=== PATIENT | male | born 1940 | race Caucasian/White ===

== ENCOUNTER 2018-03-30 09:30 | Outpatient (RCR) | payer MEDICARE, SELFPAY ==
--- NOTE | 2018-03-02 11:34 | IE_ITS ---
Date: 03/02/18 Referring: Dr. Polo Gallardo Diagnosis: chronic right shoulder pain P.T. Diagnosis: right rotator cuff tendinopathy SUBJECTIVE: History of Present Illness: Terence presents with c/o right shoulder pain which began in September 2017. He states that he slipped in his garage, and felt immediate lateral right shoulder pain as he rapidly elevated his arm to try to steady himself. He was initially in a great deal of pain, stating that he was unable to lift the arm at all. He required assistance from his left arm to put his ingram in the ignition and his hand on the steering wheel. His symptoms seemed to mildly improve, although he continued to have pain in the posterior and lateral shoulder, particularly when trying to reach up or out. He had a second quite severe episode of pain after suffering a second near-fall while working on his roof. He felt a sharp pain in the shoulder, and noticed bruising throughout the biceps the next day. This resolved over the following days, and again, pain seemed to improve. Current complaints are of pain reaching up or out, reaching behind back, or lifting items of virtually any weight. He has difficulty getting the arm comfortable at night, and has to keep his right hand in his pocket during his daily walks. 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 Patient is active and independent, living in a private home with his and their 22 year old son. Patient walks daily, push mows the lawn, etc. Current Level of Function: Pain when donning/doffing shirt, putting belt on. Difficulty reaching overhead. Unable to lift items of any weight, with significant pain reproduction with even lifting a plate. Unable to perform overhead work, such as changing a light bulb. Previous Treatment: none Comorbidities: chronic anti-coagulation due to atrial fibrillation and atrial flutter, s/p cardiac ablation; Griffin's esophagus Falls in the last year: __x__ No ____Yes - How many? ____ - (if over 2, balance SM needs to be completed) Reported hospitalizations in the last year - __x__ No ____ Yes - Dates of admission/reason: Medications: warfarin, prilosec Quality of Life: __x__ Excellent ____ Good ____ Fair ____ Poor Standardized Measures: unable to score due to missing data OBJECTIVE: Posture: Patient has increased thoracic kyphosis and posterior pelvic tilt. He demonstrates rounded shoulder, forward head posturing. Gait: Slightly shuffling gait pattern, with decreased stride length bilat. Palpation: Tenderness throughout the posterior cuff, and at the GT. He has atrophy noted throughout the infraspinatus and supraspinatus. Unable to palpate LHBT. Edema: none ROM: Cervical motion is grossly WNL. Patient demonstrates shoulder flexion to 90 degrees initially, although with discomfort is able to push through to about 150 degrees. Passively he tolerates 165 degrees. Shoulder abduction is limited to 100 degrees; passively tolerates 170, with deviation into scapular plane for comfort. He tolerates full passive IR and ER. Actively his functional IR allows thumb to L5, vs T10 on the right. Joint Accessory Motion: Mild hypomobility noted at the GH joint. Strength: Shoulder flexion is 4/5 right, 5/5 left. Biceps 4/5 right, 5/5 left. Shoulder AB 4-/5 right, 4+/5 left. IR 4+/5 bilat. ER 4/5 right, 4+/5 left. Special Tests: (+) painful arc on the right. (+) Woods-Lorne test. (+) empty can for both pain and weakness. (+) Rex sign on the right. Treatment: Today's session consisted of evaluation, followed by mobilization of the right shoulder. Began with PROM, and gentle scapular jiggles. Patient received grade II inferior and AP GH joint mobs, as well as CFM to the GT. He was instructed in an early HEP for AAROM and postural strengthening, as noted in scanned documents. IE: [id number] Direct treatment time: 60 minutes Total treatment time: 60 minutes ASSESSMENT: Patient is a 77-year-old male, referred for PT services with the diagnosis of chronic right shoulder pain. Patient presents with clinical signs and symptoms consistent with right RC tendinopathy, as demonstrated by the following impairment level findings: 1. Decreased AROM right shoulder 2. Decreased RUE strength 3. Muscle atrophy 4. GH joint hypomobility Impairments are contributing to the following functional limitations: 1. Decreased functional reach 2. Difficulty with ADLs, particularly dressing 3. Unable to perform overhead activities Patient is assessed as: ____ Low 33346 __x__ Moderate 72328 ____ High 41545 complexity, based on the following: History: (list): Chronic right shoulder pain in 77 year old patient with multiple medical comorbidities as well as underlying postural deficits. x See comorbidities and social history. Examination: (list): x See above for functional limitations and impairments. Presentation: Stable . x Evolving Unstable Decision-Making: Low complexity x Moderate complexity High complexity __x__ Patient requires skilled PT intervention to remediate the above functional limitations to return to: __x__ Premorbid level of function __x__ Return to full functional mobility ____ Return to work demands __x__ Improve QOL ____ Other: Prognosis: ____ Excellent __x__ Good ____ Fair ____ Poor G-Codes (fill in modifier after appropriate code): Patient's primary functional limitation is in the category of: __x__ Carrying, moving and handling objects: [id number], based on clinical judgement Projected goal: __x__ Carrying, moving, and handling objects [id number] x KX modifier to be utilized as justified by above documentation for necessity of continued Physical Therapy intervention to attend to functional deficits which have not been fully remediated as they approach their Medicare cap. STG: __4__ weeks. 1. Full AROM right shoulder 2. Reduce frequency of pain by 50% by self report LTG: __8__ weeks. __x__ Return to premorbid level of function. __x__ Return to full, pain-free, functional mobility. __x__ Independent with self-maintenance program. Able to don/doff shirt without pain Able to perform overhead activities, such as changing a light bulb PLAN: Patient to be seen 1 x per week, for 8 weeks, adjusting frequency of visits per patient symptoms and response to treatment. Treatment to include: x Manual therapy - [id number]: Right shoulder ROM and joint mobs to GH and scapulothoracic joint. Patient will received DTM to the posterior cuff, and CFM to the GT and posterior capsule. x Therapeutic exercise - [id number] instruct patient in progressive strengthening of the shoulder, with P/AA./AROM activities, and eventual introduction of resisted strengthening as he tolerates. Thank you for this referral. Please do not hesitate to contact me with any questions or concerns regarding this patient's plan of care. MEDICARE: Dr. Cuellar, please sign and return to PT if you agree to above POC: Dr. Cuellar Date
--- NOTE | 2018-03-16 09:30 | PTTR_ITS ---
DATE: 03/16/18 SUBJECTIVE: Terence states his shoulder is feeling remarkably better. He is now able to reach overhead without pain. States his shoulder really hasn't bothered him with exception of feeling weak for the past week. Manual therapy: ([id number]). Patient demonstrates full AROM bilateral shoulders. He has mild end range pain in IR. He received manual mobilization including cross friction massage to the greater tuberosity and the posterior capsule, grade 3 AP and inferior GH joint mobilizations. He received PROM through all planes with excellent tolerance. Therapeutic procedures ([id number]). Patient was instructed in a progressed HEP including theraband resisted exercises. * x Provided skilled instruction in proper exercise performance: * x Provided skilled manual cues to facilitate proper muscle recruitment and/ or movement pattern: for scap retraction and appropriate scapular positioning during all UE loading activities. Direct treatment time: 30 mins Total treatment time: 30 mins SS/dl
--- NOTE | 2018-03-30 09:14 | PTDS_ITS ---
Date: March 30, 2018 Referring: Dr. Cuellar Diagnosis: Chronic R shoulder pain PT diagnosis: R RC tendinopathy Treatment dates: 03/02/18-03/30/18 Subjective: History of Present Illness: Terence presents with reports of markedly improved R shoulder comfort. He states that he has been doing his exercises regularly and does have some questions about appropriate completion, particularly about some crunching that he hears during completion. He is now able to reach his arm overhead and complete all of his normal ADLs and activities without significant pain. Pain Ratin/10 currently Prior Level of Function: Current Level of Function: Pt now able to independently don and doff shirt and put on his belt. He is able to reach overhead and is now able to carry items of moderate weight without any discomfort through the biceps. Objective: Posture: Pt continues to demonstrate rounded shoulder forward head posturing with thoracic kyphosis and posterior pelvic tilt. ROM: AROM is full and pain free for bilateral shoulders. He demonstrates 175 degrees of shoulder flexion. Functional IR with thumbs to T10, active ER 50 degrees bilaterally. Treatment: TP [id number]: Today's session consisted of brief re-evaluation, followed by long discussion regarding HEP. Although pt does get some crepitus with movements into extension, he does not have any pain associated with this. We reviewed his HEP, where he does require verbal and tactile cues for appropriate completion of rowing activities and ER. He also requires continuous cues for slowing pace and controlling movements.Added wall push-ups to his program, which he will complete for 10 reps 2x/day. Treatment Time: 30 min Assessment: Pt has been seen for 3 PT sessions to address R shoulder RC tendinopathy. He has demonstrates significant improvements in comfort and functional strength and has tolerated introduction of HEP quite well. He is now asymptomatic. I have strongly encouraged him to continue with his HEP on a long -term basis and pt is in agreement with this plan. G-Codes: Pt demonstrates discharge status of [id number] based on clinical judgement and progress towards established goals. Projected goal status had been [id number]. ST. Full AROM R shoulder (met). 2. Reduce frequency of pain by 50% by self report (met). LT. Return to premorbid level of function (met). 2. Return to full pain free functional mobility (met). 3. Independent in self maintenance program (met). 4. Able to don and doff shirt without pain (met). 5. Able to perform overhead activities, such as changing a lightbulb (met). Plan:D/C to [facility] for continued strengthening. SS/fw MEDICAREDr. Cuellar, please sign below and return to PT if you agree with above POC. Carlos Cuellar MD Date
== END 2018-04-01 23:59 | disposition home or self-care (01) ==
LOC: PT 09:30
PROVIDERS: PCP Emergency Medicine; Referring Provider Emergency Medicine; Visit Provider Emergency Medicine
DX: M65.811 Other synovitis and tenosynovitis, right shoulder (principal)
CPT/HCPCS: 97110; 97140; 97162

== ENCOUNTER → 2018-04-01 03:19 | Outpatient (CLI) | payer MEDICARE, SELFPAY ==
[2018-04-01 18:00] LABS: INR 3.1 (1.0-3.5); Prothrombin Time 29.4 sec (9.3-10.8)
== END ==
PROVIDERS: PCP Emergency Medicine; Visit Provider Emergency Medicine
DX: I48.91 Unspecified atrial fibrillation (principal); Z79.01 Long term (current) use of anticoagulants
CPT/HCPCS: 36415; 85610

== ENCOUNTER 2018-05-09 00:57 | Outpatient (CLI) | payer MEDICARE, SELFPAY ==
[2018-05-09 12:04] LABS: INR 3.3 (1.0-3.5); Prothrombin Time 31.2 sec (9.3-10.8)
== END 2018-05-09 01:17 ==
PROVIDERS: PCP Emergency Medicine; Visit Provider Emergency Medicine
DX: I48.91 Unspecified atrial fibrillation (principal); Z79.01 Long term (current) use of anticoagulants
CPT/HCPCS: 36415; 85610

== ENCOUNTER → 2018-05-18 10:22 | Outpatient (BNVA) | payer MEDICARE, SELFPAY | PROVIDERS: PCP Emergency Medicine; Visit Provider Nurse Practitioner Gerontology | DX: N40.0 Benign prostatic hyperplasia without lower urinary tract symptoms (principal); R31.9 Hematuria, unspecified | CPT/HCPCS: 81003; 99213 ==

== ENCOUNTER 2018-05-20 03:14 | Outpatient (CLI) | payer MEDICARE, SELFPAY ==
[2018-05-20 15:52] LABS: INR 2.1 (1.0-3.5)
== END 2018-05-20 03:34 ==
PROVIDERS: PCP Emergency Medicine; Visit Provider Emergency Medicine
DX: I48.91 Unspecified atrial fibrillation (principal); Z79.01 Long term (current) use of anticoagulants
CPT/HCPCS: 36415; 85610

== ENCOUNTER 2018-06-07 02:35 | Outpatient (CLI) | payer MEDICARE, SELFPAY ==
[2018-06-07 11:38] LABS: INR 2.5 (1.0-3.5); Prothrombin Time 23.2 sec (9.3-10.8)
== END 2018-06-07 02:55 ==
PROVIDERS: PCP Emergency Medicine; Visit Provider Emergency Medicine
DX: I48.91 Unspecified atrial fibrillation (principal); Z79.01 Long term (current) use of anticoagulants
CPT/HCPCS: 36415; 85610

== ENCOUNTER 2018-06-27 02:01 | Outpatient (CLI) | payer MEDICARE, SELFPAY ==
[2018-06-27 14:28] LABS: INR 2.3 (1.0-3.5); Prothrombin Time 22.1 sec (9.3-10.8)
== END 2018-06-27 02:21 ==
PROVIDERS: PCP Emergency Medicine; Visit Provider Emergency Medicine
DX: I48.91 Unspecified atrial fibrillation (principal); Z79.01 Long term (current) use of anticoagulants
CPT/HCPCS: 36415; 85610

== ENCOUNTER 2018-07-21 15:49 | Outpatient (REF) | payer MEDICARE, SELFPAY ==
[2018-07-21 16:37] LABS: C & S Indicated? C&S Done As Ordered
[2018-07-21 16:59] LABS: Bacteria Negative HPF (Negative); Crystals Negative HPF (Negative); Epithelial Cells Negative HPF (Negative); Mucus Negative (Negative); RBC 20-50 (0-2)
== END 2018-07-21 16:09 ==
LOC: LBN 15:49
PROVIDERS: PCP Emergency Medicine; Visit Provider Nurse Practitioner Gerontology
DX: R31.9 Hematuria, unspecified (principal)
CPT/HCPCS: 81015; 87086

== ENCOUNTER 2018-08-12 00:48 | Outpatient (CLI) | payer MEDICARE, SELFPAY ==
[2018-08-12 13:19] LABS: INR 1.8 (0.9-1.1); Prothrombin Time 17.6 sec (9.3-11.0)
== END 2018-08-12 01:08 ==
PROVIDERS: PCP Emergency Medicine; Visit Provider Emergency Medicine
DX: I48.91 Unspecified atrial fibrillation (principal); Z79.01 Long term (current) use of anticoagulants
CPT/HCPCS: 36415; 85610

== ENCOUNTER 2018-08-25 00:58 | Outpatient (CLI) | payer MEDICARE, SELFPAY ==
[2018-08-25 11:38] LABS: Prothrombin Time 20.1 sec (9.3-11.0)
== END 2018-08-25 01:18 ==
PROVIDERS: PCP Emergency Medicine; Visit Provider Emergency Medicine
DX: I48.91 Unspecified atrial fibrillation (principal); Z79.01 Long term (current) use of anticoagulants
CPT/HCPCS: 36415; 85610

== ENCOUNTER 2018-10-06 02:05 | Outpatient (CLI) | payer MEDICARE, SELFPAY ==
[2018-10-06 12:15] LABS: INR 2.6 (0.9-1.1); Prothrombin Time 25.9 sec (9.3-11.0)
== END 2018-10-06 02:25 ==
PROVIDERS: PCP Emergency Medicine; Visit Provider Emergency Medicine
DX: I48.91 Unspecified atrial fibrillation (principal); Z79.01 Long term (current) use of anticoagulants
CPT/HCPCS: 36415; 85610

== ENCOUNTER 2018-11-04 02:52 | Outpatient (CLI) | payer MEDICARE, SELFPAY ==
[2018-11-04 11:01] LABS: Prothrombin Time 30.3 sec (9.3-11.0)
== END 2018-11-04 03:12 ==
PROVIDERS: PCP Emergency Medicine; Visit Provider Emergency Medicine
DX: I48.91 Unspecified atrial fibrillation (principal); Z79.01 Long term (current) use of anticoagulants
CPT/HCPCS: 36415; 85610

== ENCOUNTER 2019-01-13 02:37 | Outpatient (CLI) | payer MEDICARE, SELFPAY ==
[2019-01-13 11:47] LABS: INR 2.8 (0.9-1.1); Prothrombin Time 28.7 sec (9.3-11.0)
== END 2019-01-13 02:57 ==
PROVIDERS: PCP Emergency Medicine; Visit Provider Emergency Medicine
DX: I48.91 Unspecified atrial fibrillation (principal); Z79.01 Long term (current) use of anticoagulants
CPT/HCPCS: 36415; 85610

== ENCOUNTER → 2019-01-25 09:42 | Outpatient (BNVA) | payer MEDICARE, SELFPAY | PROVIDERS: PCP Emergency Medicine; Visit Provider Student in an Organized Health Care Education/Training Program | DX: I48.92 Unspecified atrial flutter (principal); I48.91 Unspecified atrial fibrillation; Z98.890 Other specified postprocedural states; I10 Essential (primary) hypertension | CPT/HCPCS: 99213 ==

== ENCOUNTER 2019-01-27 13:26 | Emergency (ER) | payer MEDICARE, SELFPAY ==
[2019-01-27] VITALS (7 sets, daily range): BP systolic 125–167; BP diastolic 81–98; PULSE 70–93; RESP 15–20; TEMP 36.7–37.3; O2SAT 95–100
--- NOTE | 2019-01-27 13:41 | DI.CT_ITS ---
SYMPTOMS/DIAGNOSIS: LT FACIAL AND ARM TINGLING, ? ACUTE CVA CRANIAL CT: Noncontrast cranial CT was performed. There is moderate generalized cerebral atrophy and there are periventricular areas of decreased attenuation with probable focal area of encephalomalacia of right parietal cortex suggesting remote infarct. No evidence of acute intracranial hemorrhage, mass effect or midline shift. The orbital and temporal bone structures appear intact. The paranasal sinuses appear well aerated as visualized. CONCLUSION: No evidence of acute intracranial process.
--- NOTE | 2019-01-27 13:41 | DI.RAD_ITS ---
SYMPTOMS/DIAGNOSIS: LT ARM/FACE TINGLING, ASSESS MEDIASTINUM PA AND LATERAL CHEST: The heart is normal in size. The lungs are clear. The mediastinal structures and pleura appear intact. CONCLUSION: Normal chest. There is a normal mediastinal contour.
--- NOTE | 2019-01-27 13:44 | W.ED.GENAD ---
Discharge Plan Disposition Patient Disposition: AGAINST MEDICAL ADVICE Condition: Stable Discharge Details Chief Complaint: CVA/TIA Clinical Impression: Acute cerebrovascular accident Primary Care Provider: Carlos Cuellar ED Provider: Dyana Atkinson Home Meds and New Rx's Prescriptions: Continued glucosamine-chondroitin 500-400 mg tablet 3 tab PO BID RF: 0 tamsulosin [Flomax] 0.4 mg capsule 0.4 mg PO DAILY Qty: 90 RF: 3 multivitamin [Daily Multi-Vitamin] 1 EACH tablet 1 ea PO DAILY RF: 0 ascorbic acid (vitamin C) [Vitamin C] 500 MG tablet 500 mg PO DAILY RF: 0 cholecalciferol (vitamin D3) 2,000 UNIT tablet 2,000 unit PO DAILY RF: 0 omega-3 fatty acids-fish oil [Fish Oil] 1 EACH capsule 1 ea PO DAILY RF: 0 omeprazole 40 mg capsule,delayed release(DR/EC) 40 mg PO BID Qty: 180 RF: 3 warfarin 5 mg tablet 5 mg PO DAILY Qty: 90 RF: 3 Discharge Instructions Instructions: Ischemic Stroke (GEN) Additional Instructions: Take your regular medications as directed. Call your primary care doctor on Wednesday to schedule a follow-up appointment for reevaluation and for referral for carotid ultrasound and echocardiogram. 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 Return immediately to the emergency department if you develop any worsening or new concerning symptoms such as headache, blurry vision, weakness, chest pain or shortness of breath. Discharge Data Discharge Date/Time-TO BE ENTERED AT DEPARTURE: 01/27/19 19:21 Discharge Physician: Dyana Atkinson Medical Decision Making 78-year-old male with a history of atrial fibrillation treated with cardiac ablation in June 2017 who presents with left-sided facial and forearm and hand tingling since 7 AM this morning, approximately 6 hours prior to arrival. Vitals within normal limits. Patient appears nontoxic. Speaking in full sentences. Airway intact. No focal deficits on exam. EKG noted a rate of 93, sinus, left anterior fascicular block, no acute ST-T wave ischemic changes. CT head done on arrival and unremarkable. Labs reviewed and unremarkable. INR 3.2. Able to send for stat MRI brain and to rule out acute CVA although although patient was requesting to leave but is agreeable to stay for this. 1715 --MRI brain notes a tiny acute lacunar infarct in the posterior limb of the right internal capsule. There are also 2 hyperintense foci in the right lateral ventricle which could be hypertensive microbleed's or calcifications. Patient has mainly been normotensive, a few readings of systolic blood pressure in the 150s-160s. He denies any history of hypertension and takes no antihypertensives. Patient was requesting to go home but was willing to stay for discussion with [facility] neurology. 1839 --discussed with [facility] neurology who recommended CTA head and neck to assess for carotid stenosis as a possible cardioembolic cause for his acute stroke. Patient is not willing to stay for any further imaging. The risks of and disability due to a repeat stroke with possible devastating consequences were explained and patient fully understands. He demonstrates capacity to make decisions. AMA form signed. Neurology recommended an outpatient echocardiogram if patient decides to leave. No other medication recommendations. Patient admits to improvement of tingling in left hand. Patient instructed to follow-up with his primary care doctor on Wednesday morning for reevaluation and for referral for outpatient carotid ultrasound and echocardiogram. Medical Records Medical records reviewed: Yes I reviewed the patient's medical records. Imaging Data Radiologic Study: Radiologist's impression: CRANIAL CT: Noncontrast cranial CT was performed. There is moderate generalized cerebral atrophy and there are periventricular areas of decreased attenuation with probable focal area of encephalomalacia of right parietal cortex suggesting remote infarct. No evidence of acute intracranial hemorrhage, mass effect or midline shift. The orbital and temporal bone structures appear intact. The paranasal sinuses appear well aerated as visualized. CONCLUSION: No evidence of acute intracranial process. PA AND LATERAL CHEST: The heart is normal in size. The lungs are clear. The mediastinal structures and pleura appear intact. CONCLUSION: Normal chest. There is a normal mediastinal contour. Lab Data Lab results reviewed: Yes I reviewed the patient's lab results. Laboratory Tests Range/Units 01/27/19 01/27/19 01/27/19 13:06 13:36 13:36 WBC (4.4-10.8) k/cumm 6.69 RBC (4.50-6.00) m/cumm 4.54 Hgb (13.5-17.5) g/dL 14.6 Hct (40.0-50.0) % 42.2 MCV (80-95) fL 93.0 MCH (27.0-33.0) pg 32.2 MCHC (32.0-36.0) g/dL 34.6 RDW (11.8-14.1) % 12.7 Plt Count (130-400) x1000/uL 206 MPV (8.0-11.0) fL 10.5 Immature Gran % 0.4 Neutrophils % 71.4 Lymphocytes % 18.1 Monocytes % 9.4 Eosinophils % 0.3 Basophils % 0.4 Absolute Neutrophils (1.2-6.7) k/cumm 4.77 Absolute Lymphocytes (1.2-3.4) k/cumm 1.21 Absolute Monocytes (0.11-0.7) k/cumm 0.63 Absolute Eosinophils (0.0-0.7) k/cumm 0.02 Absolute Basophils (0.0-0.2) k/cumm 0.03 PT (9.3-11.0) sec 32.0 H INR (0.9-1.1) 3.2 H APTT (21.0-31.4) sec 33.7 H Sodium (136-145) mmol/L 142 Potassium (3.5-5.1) mmol/L 4.0 Chloride (98-107) mmol/L 106 Carbon Dioxide (21.0-32.0) mmol/L 24.3 Anion Gap (3-11) mmol/L 11.7 H BUN (7-18) mg/dL 20 H Creatinine (0.70-1.30) mg/dL 1.10 Estimated GFR/1.73 m2 (mL/min/1.73m2) >= 60.00 Glucose (70-100) mg/dL 95 Calcium (8.5-10.1) mg/dL 9.3 Magnesium (1.8-2.4) mg/dL 1.8 Total Bilirubin (0.2-1.0) mg/dL 0.6 AST (15-37) U/L 22 ALT (12-78) U/L 22 Alkaline Phosphatase (46-116) U/L 83 Troponin I (0.00-0.06) ng/mL < 0.05 Total Protein (6.4-8.2) g/dL 7.7 Albumin (3.4-5.0) g/dL 4.0 ECG Data Attestation: I personally reviewed and interpreted this ECG (s) as follows: Interpretation: Rate of 93, sinus, left anterior fascicular block. No acute ST-T wave ischemic changes. QTc 435. QRS 94. No acute significant change compared to previous. HPI General Mode of arrival: ambulatory. Date/Time Provider Initiated Documentation: 01/27/19 13:29. Limitations to Documentation: no limitations. Information obtained by: patient. HPI Narrative: Patient is a 78-year-old male with history of atrial fibrillation and cardiac ablation in June 2017 on Coumadin who presents with left-sided facial tingling extending from his eyebrow down to his chin and left distal arm tingling extending from his elbow down to his hand that started at 7 AM this morning after awakening. Patient denies any recent illness. Denies fever, chest pain, shortness of breath, headache, dizziness, vision changes, vomiting or diarrhea. Patient states he discussed his symptoms with his primary care doctor Dr. Cuellar and was advised to come to the ER for evaluation and possible MRI brain. Related Data Home Medications Medication Instructions Recorded Confirmed ascorbic acid (vitamin C) [Vitamin 500 mg PO DAILY 05/28/15 01/27/19 C] cholecalciferol (vitamin D3) 2,000 unit PO DAILY 05/28/15 01/27/19 multivitamin [Daily Multi-Vitamin] 1 ea PO DAILY 05/28/15 01/27/19 omega-3 fatty acids-fish oil [Fish 1 ea PO DAILY tab-cap 07/21/17 01/27/19 Oil] tamsulosin 0.4 mg capsule 0.4 mg PO DAILY #90 tab-cap 05/18/18 01/27/19 omeprazole 40 mg capsule,delayed 40 mg PO BID #180 tab-cap 08/31/18 01/27/19 release warfarin 5 mg tablet 5 mg PO DAILY #90 tab-cap 09/27/18 01/27/19 glucosamine-chondroitin 500 mg-400 3 tab PO BID tab 01/25/19 01/27/19 mg tablet Previous Rx's Medication Instructions Recorded tamsulosin 0.4 mg capsule 0.4 mg PO DAILY #90 tab-cap 05/18/18 omeprazole 40 mg capsule,delayed 40 mg PO BID #180 tab-cap 08/31/18 release warfarin 5 mg tablet 5 mg PO DAILY #90 tab-cap 09/27/18 Allergies Allergy/AdvReac Type Severity Reaction Status Date / Time Penicillins Allergy Unknown Verified 01/27/19 17:18 tomato Allergy Unknown Verified 01/27/19 17:18 CHILI PEPPER Allergy Mild Uncoded 01/27/19 17:18 General Stated Complaint: CVA/TIA PHYLICIA: 2 Review of Systems Review of Systems All systems reviewed & are unremarkable except as noted in HPI and below Constitutional Reports as per HPI, Denies chills and Denies fever(s) Eyes Denies blurry vision ENT Denies dizziness, Denies sore throat and Denies throat swelling Cardiovascular Denies chest pain and Denies dyspnea Respiratory Denies cough and Denies dyspnea Gastrointestinal Denies abdominal pain, Denies diarrhea and Denies vomiting Genitourinary Denies hematuria and Denies dysuria Musculoskeletal Denies back pain and Reports numbness Integumentary/Breasts Denies lesions and Denies rash Neurologic Denies dizziness, Denies focal weakness, Reports numbness and Reports paresthesias (left elbow to hand; Left facial) Allergic/Immunologic Denies throat swelling [facility] Medical History Atrial fibrillation (Chronic) Surgical History History of radiofrequency ablation procedure for cardiac arrhythmia (Acute) Griffin's ablation Excision, Skin Mass Social History Smoking/Tobacco Use Status: Never Alcohol Intake: current Alcohol Intake frequency: holidays/special occasions only Drug use: Never Substance use type: does not use Do you feel safe at home: Yes Do you feel safe in your relationship?: Yes Exam Const General: cooperative and healthy appearing Orientation: alert and awake HENMT Head: normal to inspection Ears: hearing grossly normal bilaterally, external ears normal and TM's normal bilaterally General nose exam: external nose normal Face and sinus: normal facial exam Mouth: oral mucosae normal Teeth and gingiva: dentition normal Throat: posterior oropharynx normal Eyes General: appearance normal, both eyes and all related structures Eyelids: eyelids normal Pupils: PERRL EOM: EOM intact bilaterally Neck Neck: normal visual inspection Lymphatic: no lymphadenopathy noted Chest Chest: normal inspection of the chest Resp Effort & Inspection: normal respiratory effort and able to speak in complete sentences Auscultation: clear to auscultation bilaterally Cardio Rate: regular rate Rhythm: regular rhythm GI Inspection: normal to inspection Palpation: soft, not firm, no guarding, no hepatosplenomegaly, no masses and nontender Auscultation: normal bowel sounds Back/Spine/Pelvis Back: no CVA tenderness Skin General skin exam: no rashes or lesions noted Neuro General: alert and awake Cognition: normal cognition Speech: speech normal Gait: normal gait Motor: muscle tone normal throughout Sensory Exam: no sensory deficits noted Extrem General: normal to inspection, full ROM and normal capillary refill Psych Appearance: grossly normal Mental Status: mental status grossly normal Speech and Movement: speech and movement normal Affect: normal affect Thought Process: normal Course Vital Signs Temperature 99.1 F 01/27/19 13:28 Pulse 93 H 01/27/19 13:28 Respiratory Rate 16 01/27/19 13:28 Blood Pressure 125/98 H 01/27/19 13:28 Temperature 99.1 F 01/27/19 13:28 Temperature Source Skin 01/27/19 13:28 Pulse 93 H 01/27/19 13:28 Respiratory Rate 18 01/27/19 13:37 Respiratory Effort 01/27/19 13:37 Respiratory Depth Normal 01/27/19 13:37 Respiratory Pattern Normal 01/27/19 13:37 Blood Pressure 125/98 H 01/27/19 13:28 Blood Pressure Position Sitting 01/27/19 13:28 Oxygen Delivery Method Room Air 01/27/19 13:28 Oxygen Flow Rate 0 01/27/19 13:28
[2019-01-27 15:08] LABS: Abs Immature Grans 0.03 k/cumm (0.0-0.09); Absolute Basophil Count 0.03 k/cumm (0.0-0.2); Absolute Eosinophil Count 0.02 k/cumm (0.0-0.7); Absolute Lymphocyte Count 1.21 k/cumm (1.2-3.4); Absolute Monocyte Count 0.63 k/cumm (0.11-0.7); Absolute Neutrophil Count 4.77 k/cumm (1.2-6.7); Basophils % 0.4; Eosinophils % 0.3; HCT 42.2 % (40.0-50.0); HGB 14.6 g/dL (13.5-17.5); Immature Grans % 0.4; Lymphocytes % 18.1; Mean Corp. HGB Concentration 34.6 g/dL (32.0-36.0); Mean Corpuscular Hemoglobin 32.2 pg (27.0-33.0); Mean Platelet Volume 10.5 fL (8.0-11.0); Monocytes % 9.4; Neutrophils % 71.4; Platelet Count 206 x1000/uL (130-400); RBC 4.54 m/cumm (4.50-6.00); RBC Distribution Width 12.7 % (11.8-14.1); White Blood Cell Count 6.69 k/cumm (4.4-10.8)
--- NOTE | 2019-01-27 15:26 | DI.MRI_ITS ---
SYMPTOM/DIAGNOSIS: LT FACIAL/FOREARM TINGLING, ? ACUTE CA BRAIN MRI: Comparison is made with head CT performed earlier the same day. T 2 sagittal, T 1, T 2, FLAIR, diffusion and gradient echo axial sequences were performed. There is a tiny focus of restricted diffusion in the right thalamus. An old right occipital infarct is seen. There is underlying moderate atrophy as well as small vessel disease of white matter. The ventricles are normal in size. There is a tiny focus of old microhemorrhage adjacent to the posterior horn of the right lateral ventricle. IMPRESSION: 1. Tiny acute lacunar infarct of the right thalamus. 2. Old microbleeds near the posterior horn of the right lateral ventricle. 3. 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
[2019-01-27 15:29] LABS: ALT 22 U/L (12-78); AST 22 U/L (15-37); Alkaline Phosphatase 83 U/L (46-116); Anion Gap 11.7 mmol/L (3-11); BUN 20 mg/dL (7-18); Bilirubin, Total 0.6 mg/dL (0.2-1.0); CO2 24.3 mmol/L (21.0-32.0); Calcium 9.3 mg/dL (8.5-10.1); Chloride 106 mmol/L (98-107); Glucose 95 mg/dL (70-100); Magnesium 1.8 mg/dL (1.8-2.4); Sodium 142 mmol/L (136-145); Total Protein 7.7 g/dL (6.4-8.2)
[2019-01-27 15:46] LABS: Troponin I < 0.05 ng/mL (0.00-0.06)
--- NOTE | 2019-01-27 17:09 | DI.VRAD_ITS ---
Addendum created by Harvinder Strickland MD on 01/27/2019 5:13:09 PM EDT I personally discussed the findings with mikie vergara on 01/27/2019 at 5:13 PM EDT by telephone conference call. Initial report created on 01/27/2019 5:09:26 PM EDT EXAM: MR Head Without Contrast EXAM DATE/TIME: 01/27/2019 4:16 PM CLINICAL HISTORY: 78 years old, male; Weakness, facial TECHNIQUE: Imaging protocol: MR of the head without contrast. COMPARISON: CT HEAD WO 01/27/2019 1:56 PM FINDINGS: Brain: Tiny acute lacunar infarct within the posterior limb of the right internal capsule (axial diffusion, image 68, and ADC map image 14). Moderate global cerebral atrophy. T2 FLAIR signal hyperintensities within the white matter tracts of both cerebral hemispheres are nonspecific, but typically seen with small vessel disease/chronic white matter ischemic changes of aging. Old right parieto-occipital border zone infarct with residual mild encephalomalacia and gliosis. There are 2 hypointense foci on gradient echo scans adjacent to the occipital horn of the right lateral ventricle. Differential diagnosis includes hypertensive microbleeds, multiple cavernous malformations, cerebral amyloid angiopathy, as well as metastases. Ventricles: Mild ventriculomegaly, consistent with global cerebral atrophy. Bones/joints: Unremarkable. Soft tissues: Normal. Sinuses: Mild mucosal thickening of the ethmoid and maxillary sinuses. Small mucous retention cyst versus polyp within the left maxillary sinus. Mastoid air cells: Normal as visualized. No mastoid effusion. Orbits: Unremarkable. Other vasculature: There are normal signal flow voids within the internal carotid and basilar arteries. IMPRESSION: 1. Tiny acute lacunar infarct within the posterior limb of the right internal capsule. 2. Old right parietal occipital border zone infarct. 3. Global cerebral atrophy and small vessel disease. 4. 2 hypointense foci on gradient echo scans adjacent to the occipital horn of the right lateral ventricle. Differential diagnosis includes hypertensive microbleeds, multiple cavernous malformations, cerebral amyloid angiopathy, as well as metastases. Dictated and Authenticated by: Harvinder Strickland MD. Ordering:MICHAEL Turpin MD
[2019-01-27 17:20] LABS: INR 3.2 (0.9-1.1); PTT Activated 33.7 sec (21.0-31.4)
== END 2019-01-27 19:21 | disposition left against medical advice (07) ==
PROVIDERS: Emergency Provider Physician Assistant; PCP Emergency Medicine
DX: I63.9 Cerebral infarction, unspecified (principal); I44.4 Left anterior fascicular block; I10 Essential (primary) hypertension; I48.92 Unspecified atrial flutter; Z79.01 Long term (current) use of anticoagulants; Z53.29 Procedure and treatment not carried out because of patient's decision for other reasons
CPT/HCPCS: 36415; 80053; 93005; 99285; 70450; 70551; 71046; 83735; 84484; 85025; 85610; 85730; 93010

== ENCOUNTER 2019-02-06 14:13 | Outpatient (CLI) | payer MEDICARE, SELFPAY ==
--- NOTE | 2019-02-06 12:00 | DI.US_ITS ---
SYMPTOM/DIAGNOSIS: CVA, I63.9, STROKE, NUMBNESS LT SIDE BILATERAL DUPLEX CAROTID ULTRASOUND: Duplex evaluation of the carotid circulation was performed according to the usual protocol. There is little, if any, visible atheromatous plaque in the carotid circulation. Flow velocities in common internal and external carotid arteries are within normal limits bilaterally. There is bilateral antegrade vertebral flow. IMPRESSION: No evidence of a hemodynamically significant carotid stenosis.
--- NOTE | 2019-02-06 12:35 | MERGE_ITS ---
*[facility]* *[facility]* [address] [place] [address] Date of study: 02/06/2019 Transthoracic Echocardiography M-mode, complete 2D, complete spectral Doppler, and color Doppler *STUDY CONCLUSIONS* Summary: 1. Left ventricle: The cavity size was normal. The estimated ejection fraction was 60%. Diastolic parameters were normal. There was no evidence of elevated ventricular filling pressure by Doppler parameters. 2. Mitral valve: There was mild regurgitation. 3. Right ventricle: The cavity size was mildly dilated. Systolic function was mildly reduced. 4. Right atrium: The atrium was mildly dilated. 5. Atrial septum: No defect or patent foramen ovale was identified. 6. Pulmonary arteries: Pulmonary systolic pressure was >= 20mm Hg. 7. Inferior vena cava: Poorly visualized. *PATIENT PRESENTATION* Height: 180.3cm (71in ) S/D Pressure: 116 / 66 Weight: 77.1kg (169.6lb ) BSA: 1.97m^2 Test start time: 12:40 PM. Test stop time: 01:40 PM. ORDERING Carlos Cuellar REFERRING Carlos Cuellar PERFORMING Unknown *PROCEDURE DATA* Procedure information: The patient was identified by two identifiers. This study was interpreted by [facility]. Pertinent images and digital data are archived for permanent storage and are available for subsequent review. Comparison was made to the study of 2013. Study status: Routine. Transthoracic echocardiography. M-mode, complete 2D, complete spectral Doppler, and color Doppler. A Transthoracic Echocardiogram was performed. Scanning was performed from the parasternal, apical, subcostal, and suprasternal notch acoustic windows. Images were obtained using an [id number] cardiac ultrasound machine. Image quality was good. Study completion: The patient tolerated the procedure well. History: PMH: CVA i63.9 *CARDIAC ANATOMY* Left ventricle: The cavity size was normal. The estimated ejection fraction was 60%. The tissue Doppler parameters were normal. Diastolic parameters were normal. There was no evidence of elevated ventricular filling pressure by Doppler parameters. Aortic valve: Trileaflet. Doppler: There was no stenosis. There was no regurgitation. VTI ratio of LVOT to aortic valve: 0.66. Valve area (VTI): 2.5cm^2. Indexed valve area (VTI): 1.3cm^2/m^2. Peak velocity ratio of LVOT to aortic valve: 0.65. Valve area (Vmax): 2.5cm^2. Indexed valve area (Vmax): 1.3cm^2/m^2. Mean velocity ratio of LVOT to aortic valve: 0.67. Valve area (Vmean): 2.5cm^2. Indexed valve area (Vmean): 1.3cm^2/m^2. Mean gradient (S): 4mm Hg. Peak gradient (S): 6.1mm Hg. Aorta: Aortic root: The aortic root was normal in size. Ascending aorta: The ascending aorta was moderately dilated. Mitral valve: Doppler: There was no evidence for stenosis. There was mild regurgitation. Valve area by pressure half-time: 3.7cm^2. Indexed valve area by pressure half-time: 1.9cm^2/m^2. Peak gradient (D): 2.3mm Hg. Left atrium: The atrium was normal in size. Atrial septum: No defect or patent foramen ovale was identified. Right ventricle: The cavity size was mildly dilated. Systolic function was mildly reduced. Pulmonic valve: Doppler: There was no evidence for stenosis. There was mild regurgitation. Peak gradient (S): 6.3mm Hg. Tricuspid valve: Doppler: There was mild regurgitation. Pulmonary artery: Poorly visualized. Pulmonary systolic pressure was >= 20mm Hg. Right atrium: The atrium was mildly dilated. Pericardium: There was no pericardial effusion. Systemic veins: Inferior vena cava: Poorly visualized. Measurements Left ventricle Value Reference LV ID, ED, PLAX 4.8 cm 3.5 - 6.0 LV ID, ES, PLAX 3.5 cm 2.1 - 4.0 LV PW thickness, ED, PLAX 1.1 cm LV end-diastolic volume, 1-p A2C 100 ml LV ejection fraction, 1-p A2C 71 % LV end-diastolic volume, 1-p A4C 92 ml LV ejection fraction, 1-p A4C 53 % LV e', lateral 0.068 m/sec LV E/e', lateral 11 LV e', medial 0.052 m/sec LV E/e', medial 15 LV e', average 0.06 m/sec LV E/e', average 13 Ventricular septum Value Reference IVS thickness, ED, PLAX 1.2 cm LVOT Value Reference LVOT ID, A-P 2.2 cm LVOT area 3.8 cm^2 LVOT peak velocity, S 0.81 m/sec LVOT mean velocity, S 0.65 m/sec LVOT VTI, S 19.0 cm LVOT peak gradient, S 2.6 mm Hg LVOT mean gradient, S 1.8 mm Hg Stroke volume (SV), LVOT DP 72 ml Stroke index (SV/bsa), LVOT DP 37 ml/m^2 Aortic valve Value Reference Aortic valve peak velocity, S 1.2 m/sec Aortic valve mean velocity, S 1 m/sec Aortic valve VTI, S 29.0 cm Aortic mean gradient, S 4 mm Hg Aortic peak gradient, S 6.1 mm Hg VTI ratio, LVOT/AV 0.66 Aortic valve area, VTI 2.5 cm^2 Velocity ratio, peak, LVOT/AV 0.65 Aortic valve area, peak velocity 2.5 cm^2 Velocity ratio, mean, LVOT/AV 0.67 Aortic valve area, mean velocity 2.5 cm^2 Aortic valve area/bsa, mean velocity 1.3 cm^2/m^2 Aorta Value Reference Aortic root ID, ED 3.8 cm Ascending aorta ID, A-P, S 4.3 cm RVOT Value Reference RVOT VTI, S 16.5 cm Left atrium Value Reference LA ID, A-P, ES 3.3 cm LA ID/bsa, A-P 1.7 cm/m^2 <=2.2 LA volume, ES, 2-p 56 ml LA volume/bsa, ES, 2-p 28 ml/m^2 LA/aortic root ratio 0.88 Mitral valve Value Reference Mitral E-wave peak velocity 0.76 m/sec Mitral A-wave peak velocity 0.5 m/sec Mitral deceleration time 207 ms 150 - 230 Mitral pressure half-time 60 ms Mitral peak gradient, D 2.3 mm Hg Mitral E/A ratio, peak 1.51 Mitral valve area, PHT, DP 3.7 cm^2 Pulmonary veins Value Reference Pulmonary vein peak velocity, S 0.6 m/sec Pulmonary vein peak velocity, D 0.55 m/sec Pulmonary vein velocity ratio, peak, 1.09 S/D Pulmonary vein A-wave reversal peak 1.06 m/sec velocity Pulmonary vein A-wave reversal 146 ms duration Tricuspid valve Value Reference Tricuspid regurg peak velocity 2.5 m/sec Tricuspid peak RV-RA gradient 24.4 mm Hg Right atrium Value Reference RA area, ES, A4C (H) 20.1 cm^2 8.3 - 19.5 Pulmonic valve Value Reference Pulmonic peak gradient, S 6.3 mm Hg Pulmonic regurg velocity, ED 1.25 m/sec Pulmonic regurg gradient, ED 6 mm Hg Legend: (L) and (H) marisela values outside specified reference range. I have personally reviewed the images and have reviewed and edited the reported findings. Electronically signed by German Jones MD 02/06/2019 17:37
== END 2019-02-06 14:33 ==
PROVIDERS: PCP Emergency Medicine; Visit Provider Emergency Medicine
DX: I63.9 Cerebral infarction, unspecified (principal); R20.0 Anesthesia of skin; I48.0 Paroxysmal atrial fibrillation; I34.0 Nonrheumatic mitral (valve) insufficiency; I44.4 Left anterior fascicular block; I10 Essential (primary) hypertension
CPT/HCPCS: 93306; 93880

== ENCOUNTER 2019-02-17 02:45 | Outpatient (CLI) | payer MEDICARE, SELFPAY ==
[2019-02-17 11:16] LABS: Prothrombin Time 28.8 sec (9.3-11.0)
[2019-02-17 11:32] LABS: INR 2.8 (0.9-1.1)
[2019-02-20 10:10] LABS: PSA, Screening 4.6 ng/ml (0-6.5)
== END 2019-02-17 03:05 ==
PROVIDERS: Nurse Practitioner Gerontology; PCP Emergency Medicine; Visit Provider Emergency Medicine
DX: I48.91 Unspecified atrial fibrillation (principal); Z79.01 Long term (current) use of anticoagulants; Z12.5 Encounter for screening for malignant neoplasm of prostate
CPT/HCPCS: 36415; 84153; 85610

== ENCOUNTER 2019-03-30 00:57 | Outpatient (CLI) | payer MEDICARE, SELFPAY ==
[2019-03-30 11:07] LABS: INR 3.2 (0.9-1.1); Prothrombin Time 32.2 sec (9.3-11.0)
[2019-03-30 11:39] LABS: Calculated LDL 60 mg/dL; Cholesterol 143 mg/dL (50-200); HDL Cholesterol 72 mg/dL (40-60); Triglyceride 57 mg/dL (30-150)
== END 2019-03-30 01:17 ==
PROVIDERS: PCP Emergency Medicine; Visit Provider Emergency Medicine
DX: I63.9 Cerebral infarction, unspecified (principal); I48.91 Unspecified atrial fibrillation; Z79.01 Long term (current) use of anticoagulants
CPT/HCPCS: 36415; 80061; 85610

== ENCOUNTER 2019-04-14 01:44 | Outpatient (CLI) | payer MEDICARE, SELFPAY ==
[2019-04-14 10:28] LABS: INR 3.6 (0.9-1.1); Prothrombin Time 36.8 sec (9.3-11.0)
== END 2019-04-14 02:04 ==
PROVIDERS: PCP Emergency Medicine; Visit Provider Emergency Medicine
DX: I48.91 Unspecified atrial fibrillation (principal)
CPT/HCPCS: 36415; 85610

== ENCOUNTER 2019-04-21 02:01 | Outpatient (CLI) | payer MEDICARE, SELFPAY ==
[2019-04-21 10:21] LABS: INR 2.8 (0.9-1.1); Prothrombin Time 27.5 sec (9.3-11.0)
== END 2019-04-21 02:21 ==
PROVIDERS: PCP Emergency Medicine; Visit Provider Emergency Medicine
DX: I48.91 Unspecified atrial fibrillation (principal); Z79.01 Long term (current) use of anticoagulants
CPT/HCPCS: 36415; 85610

== ENCOUNTER 2019-05-05 02:08 | Outpatient (CLI) | payer MEDICARE, SELFPAY ==
[2019-05-05 11:02] LABS: Prothrombin Time 27.9 sec (9.3-11.0)
[2019-05-05 11:04] LABS: INR 2.8 (0.9-1.1)
== END 2019-05-05 02:28 ==
PROVIDERS: PCP Emergency Medicine; Visit Provider Emergency Medicine
DX: I48.91 Unspecified atrial fibrillation (principal); Z79.01 Long term (current) use of anticoagulants
CPT/HCPCS: 36415; 85610

== ENCOUNTER 2019-06-02 00:54 | Outpatient (CLI) | payer MEDICARE, SELFPAY ==
[2019-06-02 10:56] LABS: INR 2.6 (0.9-1.1); Prothrombin Time 25.7 sec (9.3-11.0)
== END 2019-06-02 01:14 ==
PROVIDERS: PCP Emergency Medicine; Visit Provider Emergency Medicine
DX: I48.91 Unspecified atrial fibrillation (principal); Z79.01 Long term (current) use of anticoagulants
CPT/HCPCS: 36415; 85610

== ENCOUNTER → 2019-06-12 13:31 | Outpatient (BNVA) | payer MEDICARE, SELFPAY | PROVIDERS: PCP Emergency Medicine; Referring Provider Emergency Medicine; Visit Provider Nurse Practitioner Gerontology | DX: N40.0 Benign prostatic hyperplasia without lower urinary tract symptoms (principal); R31.29 Other microscopic hematuria; R36.1 Hematospermia; Z79.01 Long term (current) use of anticoagulants | CPT/HCPCS: 81003; 99213 ==

== ENCOUNTER 2019-06-12 17:35 | Outpatient (REF) | payer MEDICARE, SELFPAY ==
[2019-06-12 15:18] LABS: Bilirubin Negative (Negative); Blood Trace-intact (Negative); Clarity Clear (Clear); Glucose Negative (Negative); Ketones Negative (Negative); Leukocyte Esterase Trace (Negative); Nitrite Negative (Negative); Urobilinogen 0.2 EU/dL (Up TO 0.2); pH 5.5 (5-8)
[2019-06-12 15:31] LABS: Bacteria Few HPF (Negative); C & S Indicated? Yes; Casts Negative LPF (Negative); Crystals Negative HPF (Negative); Epithelial Cells Rare HPF (Negative); Mucus Moderate (Negative)
== END 2019-06-12 17:55 ==
LOC: LBN 17:35
PROVIDERS: PCP Emergency Medicine; Visit Provider Nurse Practitioner Gerontology
DX: R31.29 Other microscopic hematuria (principal)
CPT/HCPCS: 81003; 81015; 87086

== ENCOUNTER 2019-06-20 01:11 | Outpatient (CLI) | payer MEDICARE, SELFPAY ==
[2019-06-20 09:27] LABS: CREATININE 1.05 mg/dL (0.70-1.30)
[2019-06-20] MEDS: Omnipaque 350 MG/ML 100 ML BTL IJ (09:53)
--- NOTE | 2019-06-20 10:04 | DI.CT_ITS ---
EXAM: CT ABDOMEN PELVIS WO/W CT urogram CLINICAL HISTORY: gross hematuria R31.9 TECHNIQUE: No oral contrast was administered. Images were performed before and after IV contrast fo llowing 60 second and 7 minutes delayed. COMPARISON: No exams were available for comparison FINDINGS: The noncontrast images show no evidence of renal, ureteral or bladder calculi. There are 2 tiny cys ts in the left kidney. There is an area of scarring posteriorly in the left kidney. Simple appearin g cysts are also noted in the right kidney, the largest measuring 3 cm. There is an area of scarring near the lower pole of the right kidney as well as in the mid right kidney. There are no suspicious renal masses. There is symmetric renal perfusion. The pyelograms are also symmetric. No collectin g system filling defects are seen. The prostate is markedly enlarged, measuring 6.6 x 5.7 by roughly 7.2 cm. There is impression upon the base of the bladder. There is mild diffuse bladder wall thick ening and trabeculation. No bladder mass or bladder calculi are seen. There are bilateral fatty con taining inguinal hernias. The lung bases show mild scarring. The liver, gallbladder, spleen, adrenals and pancreas are unremar kable. The aorta and iliac arteries show calcification but are normal in diameter. There is an appar ent mass in the sigmoid colon measuring roughly 5 x 2 by 3 cm. There is no evidence of obstruction. There is a moderate to increased quantity of stool. The colon is somewhat redundant. The appendix a ppears normal. The small bowel is unremarkable. No enlarged lymph nodes are seen. There are scatte red small retroperitoneal and mesenteric lymph nodes. Degenerative disc changes and facet degenerati ve changes are noted in the lumbar spine. No lytic or blastic bony lesions are seen. IMPRESSION: 1. Bilateral renal cysts. No evidence of renal or bladder mass or calcifications. A markedly enlarg ed prostate and diffuse bladder wall thickening is present. 2. 5 centimeter mass in the sigmoid colon without evidence of obstruction. Colonoscopy is recommen ded for further evaluation.
== END 2019-06-20 01:31 ==
PROVIDERS: PCP Emergency Medicine; Visit Provider Nurse Practitioner Gerontology
DX: R31.9 Hematuria, unspecified (principal); N28.1 Cyst of kidney, acquired; N40.0 Benign prostatic hyperplasia without lower urinary tract symptoms; K63.89 Other specified diseases of intestine
CPT/HCPCS: 74178; 82565; J3490

== ENCOUNTER → 2019-06-26 14:50 | Outpatient (BNVA) | payer MEDICARE, SELFPAY | PROVIDERS: PCP Emergency Medicine; Referring Provider Emergency Medicine; Visit Provider Nurse Practitioner Gerontology | DX: R31.0 Gross hematuria (principal); K63.89 Other specified diseases of intestine | CPT/HCPCS: 99213 ==

== ENCOUNTER 2019-06-30 01:26 | Outpatient (CLI) | payer MEDICARE, SELFPAY ==
[2019-06-30 10:51] LABS: INR 2.1 (0.9-1.1); Prothrombin Time 20.9 sec (9.3-11.0)
== END 2019-06-30 01:46 ==
PROVIDERS: PCP Emergency Medicine; Visit Provider Emergency Medicine
DX: I48.91 Unspecified atrial fibrillation (principal); Z79.01 Long term (current) use of anticoagulants
CPT/HCPCS: 36415; 85610

== ENCOUNTER → 2019-07-05 14:26 | Outpatient (BNVA) | payer MEDICARE, SELFPAY | PROVIDERS: PCP Emergency Medicine; Referring Provider Emergency Medicine; Visit Provider Surgery | DX: R93.3 Abnormal findings on diagnostic imaging of other parts of digestive tract (principal); I48.92 Unspecified atrial flutter; I63.9 Cerebral infarction, unspecified; I10 Essential (primary) hypertension; R63.4 Abnormal weight loss; R19.5 Other fecal abnormalities; Z86.010 Personal history of colon polyps | CPT/HCPCS: 99203; 99214 ==

== ENCOUNTER 2019-07-07 02:10 | Outpatient (CLI) | payer MEDICARE, SELFPAY | END 2019-07-07 02:30 | PROVIDERS: PCP Emergency Medicine; Visit Provider Surgery | DX: I48.91 Unspecified atrial fibrillation (principal); Z79.01 Long term (current) use of anticoagulants; Z01.810 Encounter for preprocedural cardiovascular examination; D36.9 Benign neoplasm, unspecified site; I63.9 Cerebral infarction, unspecified; K63.89 Other specified diseases of intestine; I10 Essential (primary) hypertension; I48.92 Unspecified atrial flutter | CPT/HCPCS: 36415; 80053; 85027; 85610; 93005; 93010 ==

== ENCOUNTER 2019-07-07 10:36 | Outpatient (CLI) | payer MEDICARE, SELFPAY ==
[2019-07-07 11:29] LABS: INR 1.6 (0.9-1.1); Prothrombin Time 15.5 sec (9.3-11.0)
[2019-07-07 11:35] LABS: HGB 14.1 g/dL (13.5-17.5); Mean Corp. HGB Concentration 33.6 g/dL (32.0-36.0); Mean Corpuscular Hemoglobin 32.1 pg (27.0-33.0); Mean Corpuscular Volume 95.7 fL (80-95); Mean Platelet Volume 9.9 fL (8.0-11.0); Platelet Count 210 x1000/uL (130-400); RBC 4.39 m/cumm (4.50-6.00); RBC Distribution Width 12.7 % (11.8-14.1); White Blood Cell Count 5.33 k/cumm (4.4-10.8)
[2019-07-07 12:07] LABS: ALT 24 U/L (16-63); AST 21 U/L (15-37); Alkaline Phosphatase 82 U/L (46-116); Anion Gap 7.8 mmol/L (3-11); BUN 19 mg/dL (7-18); Bilirubin, Total 0.6 mg/dL (0.2-1.0); CO2 29.2 mmol/L (21.0-32.0); CREATININE 0.97 mg/dL (0.70-1.30); Calcium 9.2 mg/dL (8.5-10.1); Chloride 104 mmol/L (98-107); Glucose 129 mg/dL (74-106); Potassium 4.1 mmol/L (3.5-5.1); Sodium 141 mmol/L (136-145); Total Protein 7.5 g/dL (6.4-8.2)
== END 2019-07-07 10:56 ==
PROVIDERS: PCP Emergency Medicine; Visit Provider Surgery
DX: I10 Essential (primary) hypertension (principal); I48.92 Unspecified atrial flutter; Z79.01 Long term (current) use of anticoagulants; I63.9 Cerebral infarction, unspecified
CPT/HCPCS: 36415; 80053; 85027; 85610

== ENCOUNTER 2019-07-10 08:30 | Day surgery (SDC) | payer MEDICARE, SELFPAY ==
[2019-07-10 08:51] VITALS: BP 116/68; PULSE 80; RESP 16; TEMP 36.4; O2SAT 97
[2019-07-10] MEDS: Lactated Ringers 1,000 ML 80 ML IV (09:50)
[2019-07-10 09:55] LABS: INR 1.2 (0.9-1.1); Prothrombin Time 12.1 sec (9.3-11.0)
--- NOTE | 2019-07-10 10:40 | BOWEL_PTH ---
PATIENT: Terence Rosario LOC: [facility] U#:[id number] AGE/SX: 79/M ROOM: RE07/10/[address]: Lucy Murguia : 1940 BED: DIS: 07/10/2019 SPEC #: [id number] RECD: 07/10/19 13:05 STATUS: LORI REQ #: [id number] DAVID: 07/10/19 10:[address]: Lucy Murguia DEPT: Surgical Specimen RECD BY: Micaela Agee ENTERED: 07/10/19 13:06 SP TYPE: Bowel OTHR DR: Carlos Cuellar DO Tissues: 1 - BIOPSY BOWEL Procedures: GROSS AND MICRO LEVEL 4 Comments: [id number]
[2019-07-10] MEDS: Endoscopic Tattoo 5 ML SYR IJ (10:53)
--- NOTE | 2019-07-10 11:09 | W.COLOREPORT ---
Date of service: 07/10/19 Time of Service: 11:09 Colonoscopy Report Date of procedure: 07/10/19 Pre-op diagnosis general: 5cm mass on CT. hx of prior V. adenoma w/ high grade dysplasia. Post-op diagnosis procedure note: other (Most likely colon cancer. The CT shows thickening of the bladder wall. I am highly suspicious that this is tumor eroding into the bladder) Procedure: ce w/ bx Anesthesia proc note operative: GETA Estimated blood loss (mL): 2 Pathology: other Complications: None Disposition: same day Prep: Miralax/Dulcolax Retraction Time: 15 mins Procedure Description: After informed consent was obtained the patient was taken to the procedure room and placed in a left decubitous position. Monitors were applied and a time out was done. The patients name, date of , procedure, allergies to medications and metal in their body was reviewed. The patient was then sedated. Once sedated and comfortable a rectal exam was done. External exam was normal. Internal exam revealed a normal sphincter tone and no palpable masses. The scope was then introduced and retrofelexed. no internal hemorrhoids were identified. The scope was then advanced to the cecum moderate difficulty. The TI and appendiceal orifice were identified. The prep was good. The colon is extremely redundant and floppy. He has very poor tone. The scope was then slowly retracted over 15 minutes back into the rectum. The scope was there are no divert There is a large mass at 15 cm. Multiple biopsies are taken and minimal bleeding is noted. This lesion was tattooed. Most likely this is a cancer. diverticula or AVMs. the scope is removed and the patient was woken up and taken back to Same day surgery in stable condition. The patient tolerated the procedure well and there were no immediate complications. Follow up: The patient needs to have the cystoscopy on to ensure there is no cancer eroding into the bladder. He will follow-up with me on July 19 for biopsy results.
--- NOTE | 2019-07-10 11:14 | W.PM.DSUDISC ---
Discharge Plan Disposition Patient Disposition: HOME Condition: Stable Discharge Details Reason For Visit: Colonoscopy and biopsy Attending Provider: Lucy Murguia Primary Care Provider: Carlos Cuellar Home Meds and New Rx's Prescriptions: Continued rosuvastatin [Crestor] 10 mg tablet 10 mg PO DAILY Qty: 90 RF: 3 glucosamine-chondroitin 500-400 mg tablet 3 tab PO BID RF: 0 multivitamin [Daily Multi-Vitamin] 1 EACH tablet 1 ea PO DAILY RF: 0 cholecalciferol (vitamin D3) 2,000 UNIT tablet 2,000 unit PO DAILY RF: 0 omeprazole 40 mg capsule,delayed release(DR/EC) 40 mg PO BID Qty: 180 RF: 3 tamsulosin [Flomax] 0.4 mg capsule 0.4 mg PO DAILY Qty: 90 RF: 3 Discontinued ascorbic acid (vitamin C) [Vitamin C] 500 MG tablet 500 mg PO DAILY RF: 0 Fish Oil 1 EACH capsule 1 ea PO DAILY RF: 0 warfarin 5 mg tablet 5 mg PO DAILY Qty: 90 RF: 3 Discharge Instructions Additional Instructions: Findings: Large mass in colon. Multiple biopsies were taken today. You can expect to have some bleeding with bowel movements. If you are passing large clots please go to emergency department. Do not resume Coumadin. No aspirin or NSAIDs for 2 weeks. Tylenol is okay. You need to have the cystoscopy with Dr. Horton on . This could be the colon mass eroding through into the bladder. Nothing to eat or drink, after midnight on Wednesday for surgery on . Follow up: Dr. Murguia on July 19 Please call if you develop: fevers >101.5 Nausea or Vomiting Abdominal pain that is not transient DAY SURGERY UNIT POST COLONOSCOPY INSTRUCTIONS 1. Because there will be medication in your system for the next 24 hours, you may feel a little sleepy. Your coordination will be affected. Therefore: a. Do not drive or operate dangerous equipment for 24 hours. b. Do not drink alcohol beverages for 24 hours (not even beer). c. Plan to go home and rest for the day. 2. Generally there are no restrictions on your activity after a day or so has gone by, but you may feel a bit fatigued for a few days. 3 After you arrive home you may have a light meal and return to a normal diet as you can tolerate it without feeling sick to your stomach. 4. After surgery, you may feel pain or discomfort. This should be only transient, but if it persists please contact your doctor. 5. If there are any questions regarding the findings of your procedure, please feel free to contact your doctor. 6. If you are unable to contact your doctor with a problem, contact the hospital at [phone]. 7. Continue all your regular medications unless directed otherwise. I understand the above instructions and have no questions. Signature of Patient or Responsible Adult Escort Date/Time Name of Responsible Adult Escort Signature of Nurse Date/Time Activity:: No strenuous activity or lifting over 20 pounds for 24 hours Diet:: Small light meals x24 hours Discharge Orders Discharge Orders: Discharge Order (Routine); Ordered 07/10/19 Ordered By: Lucy Murguia Discharge Data Discharge Comment: Please keep scheduled appointment on . DS: Diagnosis Discharge Diagnosis (1) Colonic mass: Status: Acute
[2019-07-10 11:44] VITALS: BP 119/69; PULSE 63; RESP 16; TEMP 36.7; O2SAT 96
== END 2019-07-10 12:05 | disposition home or self-care (01) ==
PROVIDERS: PCP Emergency Medicine; Visit Provider Surgery
PROC: 0DJD8ZZ Inspection of Lower Intestinal Tract, Via Natural or Artificial Opening Endoscopic (ICD-10-PCS; CPT 45378; principal; 2019-07-10 09:45)
DX: R93.3 Abnormal findings on diagnostic imaging of other parts of digestive tract (principal); D12.5 Benign neoplasm of sigmoid colon; K63.89 Other specified diseases of intestine; G47.33 Obstructive sleep apnea (adult) (pediatric)
CPT/HCPCS: 45381; 45380; 36415; 88305; 85610

== ENCOUNTER 2019-07-13 11:20 | Day surgery (SDC) | payer MEDICARE, SELFPAY ==
[2019-07-13 11:32] VITALS: BP 135/85; PULSE 66; RESP 16; TEMP 36.7; O2SAT 97
[2019-07-13] MEDS: Lactated Ringers 1,000 ML 80 ML IV (11:54)
[2019-07-13] MEDS: Sulfameth/Trimeth DS TAB 1 TAB PO (11:55)
--- NOTE | 2019-07-13 12:08 | W.PM.HP.N ---
Date of service: 07/13/19 Time of Service: 12:08 Assessment and Plan Assessment and plan (1) Gross hematuria: Status: Acute Assessment and plan: We will move ahead with cystoscopy to complete his hematuria work-up. If any abnormality is identified, we will either biopsy or resect the affected area. History of Present Illness History of Present Illness Chief Complaint: Gross hematuria Narrative: This is an 79-year-old gentleman who has a history of BPH. He developed gross painless hematuria. He was evaluated with a CT urogram. The CT demonstrated a sigmoid mass which has since been biopsied. He presents now for cystoscopy with possible bladder biopsy/transurethral resection of any abnormal mucosa. He has been off of his anticoagulants for about a week now. Review of Systems Constitutional Constitutional: Denies chills and Denies fever(s) Cardiovascular Cardiovascular: Denies chest pain, Denies syncope and Denies irregular heart rhythm Respiratory Respiratory: Denies cough and Denies hemoptysis Gastrointestinal Gastrointestinal: Denies abdominal pain and Denies vomiting Musculoskeletal Musculoskeletal: Reports arthralgias Neurologic Neurologic: Denies syncope and Denies seizure-like activity Comments: Numbness on the left side following stroke Hematologic/Lymphatic Hematologic/Lymphatic: Reports easy bleeding and Reports easy bruising Comments: on Warfarin [facility] Social History Smoking/Tobacco Use Status: Never Alcohol Intake: never Drug use: Never Substance use type: does not use Current gender identity: male Do you feel safe at home: Yes Do you feel safe in your relationship?: Yes Meds Home Medications and Allergies Home Medications Medication Instructions Recorded Confirmed Type cholecalciferol (vitamin D3) 2,000 unit PO DAILY 05/28/15 07/13/19 History multivitamin [Daily Multi-Vitamin] 1 ea PO DAILY 05/28/15 07/13/19 History omeprazole 40 mg capsule,delayed 40 mg PO BID #180 tab-cap 08/31/18 07/13/19 Rx release glucosamine-chondroitin 500 mg-400 3 tab PO BID tab 01/25/19 07/13/19 History mg tablet rosuvastatin 10 mg tablet 10 mg PO DAILY #90 tab 03/15/19 07/13/19 Rx tamsulosin 0.4 mg capsule 0.4 mg PO DAILY #90 tab-cap 05/26/19 07/13/19 Rx warfarin 5 mg tablet 5 mg PO PER PROTOCOL tab 07/10/19 07/13/19 History Allergies Allergy/AdvReac Type Severity Reaction Status Date / Time Penicillins Allergy Severe hives all Verified 07/13/19 11:31 over body tomato Allergy Intermediate red spots Verified 07/13/19 11:31 on trunk aspirin AdvReac Intermediate GI upset Verified 07/13/19 11:31 Exam Narrative Exam Narrative: He is in no current distress. He is cooperative. His vital signs are documented elsewhere His chest wall motion is normal. He does not appear short of breath at rest. Cardiac exam shows a regular rate and rhythm His lungs are clear Abdomen is soft with no masses He is awake and alert Results Last Vital Signs Temp 36.7 C 07/13/19 11:32 Pulse 66 07/13/19 11:32 Resp 16 07/13/19 11:32 BP 135/85 07/13/19 11:32 Pulse Ox 97 07/13/19 11:32
[2019-07-13] MEDS: Lidocaine 2% Jelly 6 ML SYR (12:58)
--- NOTE | 2019-07-13 13:04 | W.PM.DSUDISC ---
Discharge Plan Disposition Patient Disposition: HOME Condition: Stable Discharge Details Attending Provider: Neville Horton Primary Care Provider: Carlos Cuellar Home Meds and New Rx's Prescriptions: New finasteride 5 mg tablet 5 mg PO DAILY Qty: 90 RF: 3 No Action rosuvastatin [Crestor] 10 mg tablet 10 mg PO DAILY Qty: 90 RF: 3 glucosamine-chondroitin 500-400 mg tablet 3 tab PO BID RF: 0 multivitamin [Daily Multi-Vitamin] 1 EACH tablet 1 ea PO DAILY RF: 0 cholecalciferol (vitamin D3) 2,000 UNIT tablet 2,000 unit PO DAILY RF: 0 omeprazole 40 mg capsule,delayed release(DR/EC) 40 mg PO BID Qty: 180 RF: 3 tamsulosin [Flomax] 0.4 mg capsule 0.4 mg PO DAILY Qty: 90 RF: 3 warfarin 5 mg tablet 5 mg PO PER PROTOCOL RF: 0 Discharge Instructions Additional Instructions: may restart warfarin in 3 days pt must void prior to discharge script for Finasteride sent to pharmacy (start tomorrow) Pt will need followup appt in my office (either with me or with Polly Dykes) in 3 months Activity:: Activity as Tolerated Shower/Bathe:: 24 hours Diet:: As Tolerated Discharge Orders Discharge Orders: Discharge Order (Routine); Ordered 07/13/19 Ordered By: Neville Horton DS: Diagnosis Discharge Diagnosis (1) Gross hematuria: Status: Acute
[2019-07-13] MEDS: Finasteride 5 MG TAB PO (13:29)
[2019-07-13] MEDS: Phenazopyridine 200 MG TAB PO (13:29)
[2019-07-13 13:48] VITALS: BP 135/88; PULSE 65; RESP 16; TEMP 36.4; O2SAT 94
--- NOTE | 2019-07-13 14:59 | ROE_ITS ---
JULY 13, 2019 PREOPERATIVE DIAGNOSIS: Gross hematuria. POSTOPERATIVE DIAGNOSIS: Same, due to enlarged vascular prostate. OPERATION: Cystoscopy. ANESTHESIA: MAC with local. COMPLICATIONS: None. FINDINGS: Enlarged vascular prostate with no urothelial abnormalities in the bladder. HISTORY: This is an 79-year-old gentleman who has a history of gross, painless hematuria. He has p assed a few clots in the past few days. He has been evaluated with a CT urogram which demonstrated renal cysts but no evidence of solid renal masses. He presents now for cystoscopy to complete his hematuria work-up. PROCEDURE: The patient was brought to the operating room on 07/13/19. After successful induction o f monitored anesthesia care he was placed in the dorsal lithotomy position. His genitalia was prepp ed and draped. 2% Xylocaine jelly was instilled into the urethra to act as a local anesthetic. A #24 Burmese resectoscope sheath was passed through the urethra into the bladder. We used the visual obturator to inspect the urethra and prostatic mucosae using a 30 degree lens. The pendulous, bulbous and membranous urethras all appeared normal. The prostatic urethra showed dif fuse enlargement with a prominent median lobe. There were multiple inflammatory polyps along the pro static mucosa and very prominent blood vessels. No active bleeding was identified and no clot was adherent to the prostatic mucosa. The bladder neck was then entered. The bladder mucosa was inspected. The orifices were identified. No blood was seen coming from either side. There were numerous trabeculations and diverticula in the bladder but no papillary or nodular lesions were seen. Based on today's examination it appears that the most likely source of bleeding is from the enlarged, vascular prostate with no worrisome lesions in the bladder. The bladder was emptied and the scope was withdrawn. The patient tolerated this procedure well. The re were no complications.
== END 2019-07-13 14:20 | disposition home or self-care (01) ==
PROVIDERS: PCP Emergency Medicine; Visit Provider Urology
PROC: 0TBB8ZZ Excision of Bladder, Via Natural or Artificial Opening Endoscopic (ICD-10-PCS; CPT 52000; principal; 2019-07-13 13:00)
DX: R31.0 Gross hematuria (principal); N40.0 Benign prostatic hyperplasia without lower urinary tract symptoms; N32.89 Other specified disorders of bladder; N32.3 Diverticulum of bladder
CPT/HCPCS: 52000; NC

== ENCOUNTER → 2019-07-19 13:51 | Outpatient (BNVA) | payer MEDICARE, SELFPAY | PROVIDERS: PCP Emergency Medicine; Referring Provider Emergency Medicine; Visit Provider Surgery | DX: K63.89 Other specified diseases of intestine (principal); D36.9 Benign neoplasm, unspecified site; R63.4 Abnormal weight loss; R93.3 Abnormal findings on diagnostic imaging of other parts of digestive tract; R31.0 Gross hematuria; D37.4 Neoplasm of uncertain behavior of colon | CPT/HCPCS: 99214 ==

== ENCOUNTER 2019-07-28 00:26 | Outpatient (CLI) | payer MEDICARE, SELFPAY ==
[2019-07-28 11:13] LABS: INR 2.9 (0.9-1.1); Prothrombin Time 28.4 sec (9.3-11.0)
== END 2019-07-28 00:46 ==
PROVIDERS: PCP Emergency Medicine; Visit Provider Emergency Medicine
DX: I48.91 Unspecified atrial fibrillation (principal); Z79.01 Long term (current) use of anticoagulants
CPT/HCPCS: 36415; 85610

== ENCOUNTER 2019-08-22 01:55 | Outpatient (CLI) | payer MEDICARE, SELFPAY ==
[2019-08-22 11:46] LABS: INR 3.9 (0.9-1.1); Prothrombin Time 37.7 sec (9.3-11.0)
== END 2019-08-22 02:15 ==
PROVIDERS: PCP Emergency Medicine; Visit Provider Emergency Medicine
DX: I48.91 Unspecified atrial fibrillation (principal); Z79.01 Long term (current) use of anticoagulants
CPT/HCPCS: 36415; 85610

== ENCOUNTER → 2019-08-30 13:19 | Outpatient (BNVA) | payer MEDICARE, SELFPAY | PROVIDERS: PCP Emergency Medicine; Referring Provider Emergency Medicine; Visit Provider Surgery | DX: L72.0 Epidermal cyst (principal); L08.9 Local infection of the skin and subcutaneous tissue, unspecified | CPT/HCPCS: 11401; 99213 ==

== ENCOUNTER 2019-08-30 15:02 | Outpatient (REF) | payer MEDICARE, SELFPAY ==
--- NOTE | 2019-08-30 13:45 | SKI_PTH ---
PATIENT: Terence Rosario LOC: [facility] U#:[id number] AGE/SX: 79/M ROOM: RE08/30/[address]: Lucy Murguia : 1940 BED: DIS: 08/30/2019 SPEC #: [id number] RECD: 08/30/19 17:44 STATUS: LORI REQ #: [id number] DAVID: 08/30/19 13:[address]: Lucy Murguia DEPT: Surgical Specimen RECD BY: Micaela Agee ENTERED: 08/30/19 17:45 SP TYPE: KATELYN CHENG DR: Carlos Cuellar DO Tissues: 1 - SKIN CYST/TAG/DEBRIDEMENT Procedures: GROSS AND MICRO LEVEL 3 Comments: [id number]
== END 2019-08-30 15:22 ==
LOC: LBN 15:02
PROVIDERS: PCP Emergency Medicine; Visit Provider Surgery
DX: L72.0 Epidermal cyst (principal)
CPT/HCPCS: 88304

== ENCOUNTER → 2019-09-01 14:20 | Outpatient (BNVA) | payer MEDICARE, SELFPAY | PROVIDERS: PCP Emergency Medicine; Referring Provider Emergency Medicine; Visit Provider Surgery | DX: L72.3 Sebaceous cyst (principal); L08.9 Local infection of the skin and subcutaneous tissue, unspecified; D37.4 Neoplasm of uncertain behavior of colon | CPT/HCPCS: 99212 ==

== ENCOUNTER → 2019-09-04 13:22 | Outpatient (BNVA) | payer MEDICARE, SELFPAY | PROVIDERS: PCP Emergency Medicine; Referring Provider Emergency Medicine; Visit Provider Surgery | DX: Z48.817 Encounter for surgical aftercare following surgery on the skin and subcutaneous tissue (principal); L72.0 Epidermal cyst ==

== ENCOUNTER → 2019-09-13 13:01 | Outpatient (BNVA) | payer MEDICARE, SELFPAY | PROVIDERS: PCP Emergency Medicine; Referring Provider Emergency Medicine; Visit Provider Surgery | DX: L72.3 Sebaceous cyst (principal); L08.9 Local infection of the skin and subcutaneous tissue, unspecified; M79.661 Pain in right lower leg; Z48.817 Encounter for surgical aftercare following surgery on the skin and subcutaneous tissue; D37.4 Neoplasm of uncertain behavior of colon ==

== ENCOUNTER 2019-09-15 08:23 | Outpatient (CLI) | payer MEDICARE, SELFPAY ==
[2019-09-15 12:15] LABS: INR 1.5 (0.9-1.1); Prothrombin Time 14.5 sec (9.3-11.0)
== END 2019-09-15 08:43 ==
PROVIDERS: PCP Emergency Medicine; Visit Provider Emergency Medicine
DX: I48.91 Unspecified atrial fibrillation (principal); Z79.01 Long term (current) use of anticoagulants
CPT/HCPCS: 36415; 85610

== ENCOUNTER → 2019-09-21 07:54 | Outpatient (BNVA) | payer MEDICARE, SELFPAY | PROVIDERS: PCP Emergency Medicine; Referring Provider Emergency Medicine; Visit Provider Nurse Practitioner Gerontology | DX: R33.9 Retention of urine, unspecified (principal) | CPT/HCPCS: 99213 ==

== ENCOUNTER 2019-09-22 00:55 | Outpatient (CLI) | payer MEDICARE, SELFPAY ==
[2019-09-22 12:18] LABS: INR 2.4 (0.9-1.1); Prothrombin Time 23.2 sec (9.3-11.0)
== END 2019-09-22 01:15 ==
PROVIDERS: PCP Emergency Medicine; Visit Provider Emergency Medicine
DX: I48.91 Unspecified atrial fibrillation (principal); Z79.01 Long term (current) use of anticoagulants
CPT/HCPCS: 36415; 85610

== ENCOUNTER → 2019-09-25 07:55 | Outpatient (BNVA) | payer MEDICARE, SELFPAY | PROVIDERS: PCP Emergency Medicine; Referring Provider Emergency Medicine; Visit Provider Nurse Practitioner Gerontology | DX: R33.9 Retention of urine, unspecified (principal) | CPT/HCPCS: 51702; 99213 ==

== ENCOUNTER 2019-09-26 12:05 | Outpatient (CLI) | payer MEDICARE, SELFPAY ==
--- NOTE | 2019-09-26 13:30 | DI.US_ITS ---
EXAM: US LOWER EXTREMITY VENOUS RT US LOWER EXTREMITY VENOUS RT CLINICAL HISTORY: right leg pain/edema occuring post op, ? dvt,m79.661. right leg pain/edema occuring post op, ? dvt,m79.661 TECHNIQUE: Ultrasound performed using standard protocol. COMPARISON: Cardiac from 02/06/2019 FINDINGS: Duplex venous ultrasound was performed according to the usual protocol. The deep veins are freely com pressible throughout and there is normal flow augmentation with manual calf compression. 2D and Doppl er evaluation are unremarkable. IMPRESSION: No evidence of deep venous thrombosis of the lower extremity DATA REPOSITORY:
== END 2019-09-26 12:25 ==
PROVIDERS: PCP Emergency Medicine; Visit Provider Family Medicine
DX: M79.661 Pain in right lower leg (principal); R60.0 Localized edema
CPT/HCPCS: 93971

== ENCOUNTER 2019-10-06 11:17 | Outpatient (CLI) | payer MEDICARE, SELFPAY ==
[2019-10-06 11:46] LABS: INR 2.4 (0.9-1.1)
== END 2019-10-06 11:37 ==
PROVIDERS: PCP Emergency Medicine; Visit Provider Emergency Medicine
DX: I48.91 Unspecified atrial fibrillation (principal); Z79.01 Long term (current) use of anticoagulants
CPT/HCPCS: 36415; 85610

== ENCOUNTER → 2019-10-09 08:03 | Outpatient (BNVA) | payer MEDICARE, SELFPAY | PROVIDERS: PCP Emergency Medicine; Referring Provider Emergency Medicine; Visit Provider Nurse Practitioner Gerontology | DX: R33.8 Other retention of urine (principal) | CPT/HCPCS: 99213 ==

== ENCOUNTER 2019-10-09 22:34 | Emergency (ER) | payer MEDICARE, SELFPAY ==
[2019-10-09 22:39] VITALS: BP 180/83; PULSE 83; RESP 18; TEMP 36.5; O2SAT 97
--- NOTE | 2019-10-09 23:05 | ED.GENADUL_ITS ---
Discharge Plan Disposition Patient Disposition: HOME Condition: Stable Discharge Details Chief Complaint: Urinary Clinical Impression: Acute urinary retention Primary Care Provider: Carlos Cuellar ED Provider: German Brown Home Meds and New Rx's Prescriptions: Continued rosuvastatin [Crestor] 10 mg tablet 10 mg PO DAILY Qty: 90 RF: 3 tamsulosin [Flomax] 0.4 mg capsule 0.8 mg PO DAILY RF: 0 glucosamine-chondroitin 500-400 mg tablet 3 tab PO BID RF: 0 Adult Probiotic 3 billion cell capsule 3,000 mmu cells PO DAILY Qty: 30 RF: 0 multivitamin [Daily Multi-Vitamin] 1 EACH tablet 1 ea PO DAILY RF: 0 cholecalciferol (vitamin D3) 2,000 UNIT tablet 2,000 unit PO DAILY RF: 0 warfarin 5 mg tablet 5 mg PO PER PROTOCOL RF: 0 omeprazole 40 mg capsule,delayed release(DR/EC) 40 mg PO BID Qty: 180 RF: 3 finasteride 5 mg tablet 5 mg PO DAILY Qty: 90 RF: 3 Discharge Instructions Instructions: Howard Catheter Placement and Care (ED), Urinary Leg Bag (GEN) Additional Instructions: call dr. verma's office to arrange for a follow up appointment if you have severe worsening pain or fevers return to the emergency department Discharge Data Discharge Date/Time-TO BE ENTERED AT DEPARTURE: 10/10/19 01:30 Medical Decision Making <Taylor Vargas - Last Filed: 10/12/19 08:12> Patient is an 79-year-old male on coumadin with a history of colon resection who presents with urinary retention. Patient was seen at Dr. Verma's office this morning and had a Howard catheter removed. Patient was unable to urinate after removal of catheter. He was able to self cath in the office at approximately 2 PM this afternoon and was sent home to self cath. Patient has not been successful with self cathing since the episode in the office. Upon arrival he does complain of bladder distention, appears uncomfortable and initial bladder scan shows over 1000 mL of urinary retention. 2311: RN is at bedside attempting Howard catheritazation. She reports that there is gross blood with clots noted and resistance felt at the area of prostate. 2346: Spoke with Dr. Verma who will come to evaluate the patient and attempt cathertization. Labs ordered including PT. 0004: Patient offered morphine for pain which patient declined at this time. Discussed plan of care to have urology come and attempt to put a catheter patient verbalized understanding. Patient is to be signed out to Dr. Brown pending lab results and urology evaluation. <German Brown MD - Last Filed: 10/10/19 01:01> Dr. Verma able to place coude catheter and drained clear urine. No further treatment or workup needed per Dr. Verma and can be discharged home and f/u with him as outpatient Lab Data Lab results reviewed: Yes I reviewed the patient's lab results. HPI <Taylor Vargas - Last Filed: 10/12/19 08:12> General Mode of arrival: ambulatory . Date/Time Provider Initiated Documentation: 10/09/19 22:38 . Limitations to Documentation: no limitations . Information obtained by: patient . HPI Narrative: Patient is an 79-year-old male with a history of: Resection who presents with urinary retention. Patient was seen at Dr. Verma's office this morning and had a Howard catheter removed. Patient was unable to urinate after removal of catheter. He was able to self cath in the office at approximately 2 PM this afternoon and was sent home to self cath. Patient has not been successful with self cathing since the episode in the office. Patient reports attempting to 7 times to catheterize himself prior to arrival. Upon arrival he does complain of bladder distention, appears uncomfortable and initial bladder scan shows over 1000 mL of urinary retention. Related Data Home Medications Medication Instructions Recorded Confirmed cholecalciferol (vitamin D3) 2,000 unit PO DAILY 05/28/15 10/09/19 multivitamin [Daily Multi-Vitamin] 1 ea PO DAILY 05/28/15 10/09/19 glucosamine-chondroitin 500 mg-400 3 tab PO BID tab 01/25/19 10/09/19 mg tablet rosuvastatin 10 mg tablet 10 mg PO DAILY #90 tab 03/15/19 10/09/19 warfarin 5 mg tablet 5 mg PO PER PROTOCOL tab 07/10/19 10/09/19 finasteride 5 mg PO DAILY #90 tab 07/13/19 10/09/19 lactobacillus combination no.8 3 3,000 mmu cells PO DAILY #30 cap 08/30/19 10/09/19 billion cell capsule omeprazole 40 mg capsule,delayed 40 mg PO BID #180 tab-cap 08/30/19 10/09/19 release tamsulosin 0.4 mg capsule 0.8 mg PO DAILY tab-cap 09/26/19 10/09/19 Previous Rx's Medication Instructions Recorded rosuvastatin 10 mg tablet 10 mg PO DAILY #90 tab 03/15/19 finasteride 5 mg PO DAILY #90 tab 07/13/19 lactobacillus combination no.8 3 3,000 mmu cells PO DAILY #30 cap 08/30/19 billion cell capsule omeprazole 40 mg capsule,delayed 40 mg PO BID #180 tab-cap 08/30/19 release Allergies Allergy/AdvReac Type Severity Reaction Status Date / Time Penicillins Allergy Severe hives all Verified 10/09/19 23:01 over body tomato Allergy Intermediate red spots Verified 10/09/19 23:01 on trunk aspirin AdvReac Intermediate GI upset Verified 10/09/19 23:01 adhesive tape AdvReac Mild redness Verified 10/09/19 23:01 General Stated Complaint: Urinary PHYLICIA: 3 Review of Systems <Tyalor Vargas - Last Filed: 10/12/19 08:12> Narrative: Constitutional: Negative for weight loss, alert and oriented, well groomed, normal body habitus, appears uncomfortable. HEENT: Denies trauma, headaches, blurry vision, nasal discharge, sore throat, trouble swallowing. Chest: Denies chest pain, palpitations, irregular rhythm, hypertension. Respiratory: Denies Shortness of breath, cough, hemoptysis. GI: Denies , nausea, vomiting, diarrhea, constipation. : Denies, flank pain, rectal bleeding. Positive for urinary retention. Neuro: Denies dizziness, blurry vision, weakness, syncope, headache or facial numbness. Hematologic: Denies easy bruising, intolerance to heat or cold, hair loss. [facility] <Taylor Vargas - Last Filed: 10/12/19 08:12> Medical History Abnormal CT scan, sigmoid colon (Acute) Atrial fibrillation (Chronic) Change in stool (Acute) Colonic mass (Acute) Infected sebaceous cyst of skin (Acute) Right calf pain (Acute) Sigmoidoscopy performed (Acute ~09/24/16) 02/24/17 Dr. Adan with Polypectomies Stroke (Chronic ~12/2018) Villous adenoma of left colon (Acute) Weight loss (Acute) Surgical History Griffin's ablation [facility] [place]12[place]17/16 Excision, Skin Mass sebaceous cyst History of colonoscopy (Chronic ~07/10/19) History of radiofrequency ablation procedure for cardiac arrhythmia (Acute) Social History Smoking/Tobacco Use Status: Never Alcohol Intake: never Drug use: Never Substance use type: does not use Current gender identity: male Do you feel safe at home: Yes Do you feel safe in your relationship?: Yes Exam <Taylor Vargas - Last Filed: 10/12/19 08:12> Narrative Exam Narrative: Constitutional: Allert and oriented x3. Appears stated age. Normal body habitus. Head: Normocephalic, no trauma. Eyes: Pupils PERRLA, Red reflex noted, EOM's intact. Eyelids symmetrical withour lesions, discharge, or swelling. ENT: Bilateral TM's WNL, External ear normal to inspection, no mastoid TTP, swelling, or erythema, Nasal turbinates WNL, no nasal discharge. Normal dentition, Posterior pharynx WNL, no exudate. Chest: RRR, Normal S1, S2, distal pulses intact. Resp: Lungs clear to auscultation bilaterally, no wheezes, rales, or rhonchi. Musculoskeletal: Normal gait, 5/5 strength to all four extremities. GI: Healed surgical scars noted, there is a horizontal suprapubic incision, and 2 laparoscopic incisions noted. : Distended bladder noted to palpation, urinary retention. Bladder scan shows greater than thousand milliliters of urine in bladder. Skin: No suspicious rashes or lesions. Capillary refill ?2 sec. Neurologic: Cranial nerves II-XII intact. Alert and oriented x 3. DTR's intact. Hematologic/Lymphatic: No ecchymosis, no lymphadenopathy. Course <Taylor Vargas - Last Filed: 10/12/19 08:12> Vital Signs Vital signs: Vital Signs Temperature 36.5 C 10/09/19 22:39 Pulse 83 10/09/19 22:39 Respiratory Rate 18 10/09/19 22:39 Blood Pressure 180/83 H 10/09/19 22:39 Pulse Oximetry 97 10/09/19 22:39 Temperature 36.5 C 10/09/19 22:39 Pulse 83 10/09/19 22:39 Respiratory Rate 18 10/09/19 22:39 Respiratory Effort 10/09/19 22:55 Blood Pressure 180/83 H 10/09/19 22:39 Pulse Oximetry 97 10/09/19 22:39 Oxygen Delivery Method Room Air 10/09/19 22:39 Oxygen Flow Rate 0 10/09/19 22:39 Pain Level 9 10/09/19 22:55 Lab/Test Results Lab/Test Results: 10/09/19 22:51 Urine - Cath Howard Indwelling Urine Culture - Pending Sign Out <Taylor Vargas - Last Filed: 10/12/19 08:12> Sign Out Data: Sign Out Comment: Pending Lab results and Urology evaluation for Howard placement Last updated by Taylor Vargas at 10/10/19 00:01
--- NOTE | 2019-10-09 23:47 | NUR.NOTE ---
Nursing Note: Attempted to catheterize pt twice unable to pass catheter into the bladder secondary to blood clotting the catheter tip. Provider aware and will contact Dr. Horton the pt's urologist.
[2019-10-09 23:56] LABS: Abs Immature Grans 0.02 k/cumm (0.0-0.09); Absolute Basophil Count 0.03 k/cumm (0.0-0.2); Absolute Eosinophil Count 0.15 k/cumm (0.0-0.7); Absolute Lymphocyte Count 1.45 k/cumm (1.2-3.4); Absolute Monocyte Count 0.73 k/cumm (0.11-0.7); Absolute Neutrophil Count 4.65 k/cumm (1.2-6.7); Basophils % 0.4; Eosinophils % 2.1; HCT 35.9 % (40.0-50.0); HGB 12.3 g/dL (13.5-17.5); Immature Grans % 0.3 %; Lymphocytes % 20.6; Mean Corp. HGB Concentration 34.3 g/dL (32.0-36.0); Mean Corpuscular Hemoglobin 31.6 pg (27.0-33.0); Mean Corpuscular Volume 92.3 fL (80-95); Mean Platelet Volume 9.1 fL (8.0-11.0); Monocytes % 10.4; Neutrophils % 66.2; Platelet Count 303 x1000/uL (130-400); RBC 3.89 m/cumm (4.50-6.00); RBC Distribution Width 12.3 % (11.8-14.1); White Blood Cell Count 7.03 k/cumm (4.4-10.8)
[2019-10-10 00:06] LABS: BUN 20 mg/dL (7-18); CREATININE 1.16 mg/dL (0.70-1.30); Calcium 9.1 mg/dL (8.5-10.1); Chloride 102 mmol/L (98-107); Glucose 147 mg/dL (74-106); Potassium 3.8 mmol/L (3.5-5.1); Sodium 138 mmol/L (136-145)
[2019-10-10 00:07] LABS: INR 2.8 (0.9-1.1); Prothrombin Time 27.4 sec (9.3-11.0)
[2019-10-10 01:00] VITALS: BP 168/78; PULSE 73; RESP 16; O2SAT 98
--- NOTE | 2019-10-10 01:02 | W.UROLOGYCON ---
Date of service: 10/10/19 Time of Service: 01:02 Assessment and Plan Assessment and plan (1) Retention of urine: Status: Acute Assessment and plan: He will be sent home with a leg bag for his urine. I will ask the office to contact him to set up a follow-up appointment. History of Present Illness History of Present Illness Chief Complaint: Urinary retention Narrative: Apparently the patient had a voiding trial today here in the office. He was only able to void a small amount but he was taught how to self cath and catheterized himself quite well here in the office. Unfortunately, when he went home and his bladder filled, he was not able to pass his catheter in spite of multiple attempts. He presented to the emergency room and the staff was unable to pass a catheter. I was called into provide bladder drainage. [facility] Medical History Abnormal CT scan, sigmoid colon (Acute) Atrial fibrillation (Chronic) Change in stool (Acute) Colonic mass (Acute) Infected sebaceous cyst of skin (Acute) Right calf pain (Acute) Sigmoidoscopy performed (Acute ~09/24/16) 02/24/17 Dr. Adan with Polypectomies Stroke (Chronic ~12/2018) Villous adenoma of left colon (Acute) Weight loss (Acute) Surgical History Griffin's ablation [facility] [place]12/17/16 Excision, Skin Mass sebaceous cyst History of colonoscopy (Chronic ~07/10/19) History of radiofrequency ablation procedure for cardiac arrhythmia (Acute) Social History Smoking/Tobacco Use Status: Never Alcohol Intake: never Drug use: Never Substance use type: does not use Current gender identity: male Do you feel safe at home: Yes Do you feel safe in your relationship?: Yes Exam Narrative Exam Narrative: He was seen in the emergency department. He appeared uncomfortable. His bladder was distended. His genitalia was then prepped. 2% Xylocaine was instilled into the urethra. A 16 Armenian coud? tipped catheter was passed through the urethra into the bladder. Clear urine was obtained (1400 cc). The catheter balloon was inflated with 10 cc of sterile water and the catheter was hooked to gravity drainage. His discomfort greatly improved after placement of the catheter. Results Last Vital Signs Temp 36.5 C 10/09/19 22:39 Pulse 73 10/10/19 01:00 Resp 16 10/10/19 01:00 BP 168/78 H 10/10/19 01:00 Pulse Ox 98 10/10/19 01:00 Labs Result diagrams: 10/09/19 23:45 10/09/19 23:45 Labs: Laboratory Results - last 24 hr 10/09/19 10/09/19 10/09/19 23:45 23:45 23:45 WBC 7.03 RBC 3.89 L Hgb 12.3 L Hct 35.9 L MCV 92.3 MCH 31.6 MCHC 34.3 RDW 12.3 Plt Count 303 MPV 9.1 Immature Gran % 0.3 Neutrophils % 66.2 Lymphocytes % 20.6 Monocytes % 10.4 Eosinophils % 2.1 Basophils % 0.4 Absolute Neutrophils 4.65 Absolute Lymphocytes 1.45 Absolute Monocytes 0.73 H Absolute Eosinophils 0.15 Absolute Basophils 0.03 PT 27.4 H INR 2.8 H Sodium 138 Potassium 3.8 Chloride 102 Carbon Dioxide 27.0 Anion Gap 9.0 BUN 20 H Creatinine 1.16 Estimated GFR/1.73 m2 >= 60.00 Glucose 147 H Calcium 9.1
[2019-10-10 01:07] LABS: Bilirubin Negative (Negative); Blood Moderate (Negative); Clarity Clear (Clear); Glucose Negative (Negative); Ketones Negative (Negative); Leukocyte Esterase Small (Negative); Nitrite Negative (Negative); Specific Gravity 1.015 (1.005-1.025); Urobilinogen 0.2 EU/dL (Up TO 0.2)
[2019-10-10 01:23] LABS: Bacteria Few HPF (Negative); Epithelial Cells Negative HPF (Negative)
[2019-10-10 01:24] LABS: C & S Indicated? C&S Done As Ordered; Casts Negative LPF (Negative); Crystals Moderate Amorphous HPF (Negative); Mucus Negative (Negative)
[2019-10-10 01:32] VITALS: BP 163/67; PULSE 73; RESP 16; TEMP 36.2
== END 2019-10-10 01:30 | disposition home or self-care (01) ==
PROVIDERS: Registered Nurse Emergency; Emergency Provider Emergency Medicine; PCP Emergency Medicine
DX: R33.8 Other retention of urine (principal); Z79.01 Long term (current) use of anticoagulants; I10 Essential (primary) hypertension
CPT/HCPCS: 36415; 51703; 80048; 87077; 96374; 99213; 99284; 81003; 81015; 85025; 85610; 87086; 87186

== ENCOUNTER → 2019-10-19 11:39 | Outpatient (BNVA) | payer MEDICARE, SELFPAY | PROVIDERS: PCP Emergency Medicine; Referring Provider Emergency Medicine; Visit Provider Urology | DX: R31.0 Gross hematuria (principal); R33.8 Other retention of urine; Z96.0 Presence of urogenital implants | CPT/HCPCS: 81003; 99212 ==

== ENCOUNTER → 2019-11-07 09:11 | Outpatient (BNVA) | payer MEDICARE, SELFPAY | PROVIDERS: PCP Emergency Medicine; Referring Provider Emergency Medicine; Visit Provider Nurse Practitioner Gerontology | DX: R33.8 Other retention of urine (principal); Z46.6 Encounter for fitting and adjustment of urinary device | CPT/HCPCS: 51702; 99213 ==

== ENCOUNTER 2019-11-29 03:50 | Outpatient (CLI) | payer MEDICARE, SELFPAY ==
[2019-11-29 11:55] LABS: INR 3.3 (0.9-1.1); Prothrombin Time 31.8 sec (9.3-11.0)
== END 2019-11-29 04:10 ==
PROVIDERS: PCP Emergency Medicine; Visit Provider Emergency Medicine
DX: I48.91 Unspecified atrial fibrillation (principal); Z79.01 Long term (current) use of anticoagulants
CPT/HCPCS: 36415; 85610

== ENCOUNTER → 2019-12-06 10:56 | Outpatient (BNVA) | payer MEDICARE, SELFPAY | PROVIDERS: PCP Emergency Medicine; Referring Provider Emergency Medicine; Visit Provider Nurse Practitioner Gerontology | DX: R33.8 Other retention of urine (principal); Z46.6 Encounter for fitting and adjustment of urinary device | CPT/HCPCS: 51702; 99213 ==

== ENCOUNTER → 2020-01-03 11:12 | Outpatient (BNVA) | payer MEDICARE, SELFPAY | PROVIDERS: PCP Emergency Medicine; Referring Provider Emergency Medicine; Visit Provider Nurse Practitioner Gerontology | DX: R33.8 Other retention of urine (principal); Z46.6 Encounter for fitting and adjustment of urinary device | CPT/HCPCS: 51702; 99213 ==

== ENCOUNTER 2020-01-17 03:43 | Outpatient (CLI) | payer MEDICARE, SELFPAY | END 2020-01-17 04:03 | PROVIDERS: PCP Emergency Medicine; Visit Provider Emergency Medicine | DX: N48.1 Balanitis (principal) | CPT/HCPCS: 99213 ==

== ENCOUNTER → 2020-01-31 11:02 | Outpatient (BNVA) | payer MEDICARE, SELFPAY | PROVIDERS: PCP Emergency Medicine; Referring Provider Emergency Medicine; Visit Provider Nurse Practitioner Gerontology | DX: R33.8 Other retention of urine (principal); N48.0 Leukoplakia of penis; Z46.6 Encounter for fitting and adjustment of urinary device | CPT/HCPCS: 51702; 99213 ==

== ENCOUNTER → 2020-03-04 14:20 | Outpatient (BNVA) | payer MEDICARE, SELFPAY | PROVIDERS: PCP Emergency Medicine; Referring Provider Emergency Medicine; Visit Provider Nurse Practitioner Gerontology | DX: R33.8 Other retention of urine (principal); Z46.6 Encounter for fitting and adjustment of urinary device | CPT/HCPCS: 51702; 99213 ==

== ENCOUNTER → 2020-04-11 09:59 | Outpatient (BNVA) | payer MEDICARE, SELFPAY | PROVIDERS: PCP Emergency Medicine; Referring Provider Emergency Medicine; Visit Provider Urology | DX: R33.8 Other retention of urine (principal); I63.9 Cerebral infarction, unspecified; R63.4 Abnormal weight loss; I48.92 Unspecified atrial flutter; I10 Essential (primary) hypertension | CPT/HCPCS: 51702; 51728; 51784; 51797; 99212 ==

== ENCOUNTER → 2020-05-02 10:30 | Outpatient (BNVA) | payer MEDICARE, SELFPAY | PROVIDERS: PCP Emergency Medicine; Referring Provider Emergency Medicine; Visit Provider Nurse Practitioner Gerontology | DX: R33.8 Other retention of urine (principal); N43.3 Hydrocele, unspecified; Z46.6 Encounter for fitting and adjustment of urinary device | CPT/HCPCS: 51702; 99213 ==

== ENCOUNTER → 2020-05-10 09:22 | Outpatient (BNVA) | payer MEDICARE, SELFPAY | PROVIDERS: PCP Emergency Medicine; Referring Provider Emergency Medicine; Visit Provider Urology | DX: R33.8 Other retention of urine (principal) | CPT/HCPCS: 99214; 99442 ==

== ENCOUNTER → 2020-05-30 10:01 | Outpatient (BNVA) | payer MEDICARE, SELFPAY | PROVIDERS: PCP Emergency Medicine; Referring Provider Emergency Medicine; Visit Provider Nurse Practitioner Gerontology | DX: R33.8 Other retention of urine (principal); Z46.6 Encounter for fitting and adjustment of urinary device | CPT/HCPCS: 51702; 99213 ==

== ENCOUNTER 2020-07-01 02:30 | Outpatient (CLI) | payer MEDICARE, SELFPAY ==
[2020-07-02 16:50] LABS: COVID-19 RT-PCR UVMMC Result Negative (Negative)
== END 2020-07-01 02:50 ==
PROVIDERS: Urology; PCP Emergency Medicine; Visit Provider Nurse Practitioner Gerontology
DX: Z11.59 Encounter for screening for other viral diseases (principal); Z01.818 Encounter for other preprocedural examination
CPT/HCPCS: U0003

== ENCOUNTER 2020-07-04 09:28 | Inpatient (IN) | payer MEDICARE, SELFPAY ==
[2020-07-04] VITALS (10 sets, daily range): BP systolic 95–132; BP diastolic 58–80; PULSE 55–83; RESP 13–21; TEMP 36–36.6; O2SAT 93–98
--- NOTE | 2020-07-04 08:58 | W.PM.HP.N ---
Assessment and Plan Assessment and plan (1) Retention of urine: Status: Acute Assessment and plan: His urodynamic study indicated that he does have adequate detrusor function that should allow him to void if any bladder outlet obstruction is relieved. He presents now for cystoscopy with transurethral resection of his prostate. We will plan on keeping him hospitalized overnight for continuous bladder irrigation and antibiotics. History of Present Illness History of Present Illness Chief Complaint: Urinary retention Narrative: This is an 80-year-old gentleman who has a history of lower urinary tract symptoms. He developed urinary retention after a colon resection. Since that time, he has failed maximal medical therapy. Initially, we taught the patient intermittent catheterization. He was able to successfully CIC in our office, but eventually was unable to do so at home. Since that time, he has relied on an indwelling urethral catheter that is changed monthly. We did a urodynamic study which showed that he does have detrusor contractions when asked to attempt to void. Because of these results, we would expect him to be able to void without his catheter as long as any bladder outlet obstruction has been addressed. He presents for TURP. He has no fevers or chills. He has noticed that his urine is especially cloudy lately. Review of Systems Narrative: No fevers or chills No vision change or dysphasia No diabetes or thyroid No shortness of breath, cough or hemoptysis No chest pain or palpitations No nausea, vomiting. Hx colon resection Hx stroke. No longer on anticoagulants No bleeding disorders. No hx DVT No gout PFSH Medical History Abnormal CT scan, sigmoid colon Atrial fibrillation Change in stool Colonic mass Infected sebaceous cyst of skin Right calf pain Sigmoidoscopy performed (~09/24/16) 02/24/17 Dr. Adan with Polypectomies Stroke (~12/2018) Villous adenoma of left colon Weight loss Surgical History Griffin's ablation [facility] [place]-12/17/16 Excision, Skin Mass sebaceous cyst History of colonoscopy (~07/10/19) History of radiofrequency ablation procedure for cardiac arrhythmia Social History Smoking/Tobacco Use Status: Never Smoking risk assessment performed?: Yes Alcohol Intake: never Drug use: Never Substance use type: does not use Current gender identity: male Do you feel safe at home: Yes Do you feel safe in your relationship?: Yes Meds Home Medications and Allergies Home Medications Medication Instructions Recorded Confirmed Type cholecalciferol (vitamin D3) 2,000 unit PO DAILY 05/28/15 07/04/20 History multivitamin [Daily Multi-Vitamin] 1 ea PO DAILY 05/28/15 07/04/20 History glucosamine-chondroitin 500 mg-400 3 tab PO BID tab 01/25/19 07/04/20 History mg tablet omeprazole 40 mg capsule,delayed 40 mg PO BID #180 tab-cap 08/30/19 07/04/20 Rx release warfarin 5 mg tablet 5 mg PO PER PROTOCOL #90 tab 11/15/19 07/04/20 Rx clotrimazole-betamethasone 1 1 applic TP BID #45 gm 01/17/20 07/04/20 Rx %-0.05 % topical cream rosuvastatin 10 mg tablet 10 mg PO DAILY #90 tab 03/08/20 07/04/20 Rx finasteride 5 mg PO HS 07/02/20 07/04/20 History tamsulosin [Flomax] 0.8 mg PO HS 07/02/20 07/04/20 History Allergies Allergy/AdvReac Type Severity Reaction Status Date / Time Penicillins Allergy Severe hives all Verified 07/04/20 09:39 over body tomato Allergy Intermediate red spots Verified 07/04/20 09:39 on trunk aspirin AdvReac Intermediate GI upset Verified 07/04/20 09:39 adhesive tape AdvReac Mild redness Verified 07/04/20 09:39 Exam Const General: cooperative and no acute distress Neck Neck: supple Resp Effort & Inspection: normal respiratory effort Auscultation: clear to auscultation bilaterally Cardio Rate: regular rate Rhythm: regular rhythm GI Inspection: normal to inspection Palpation: soft, no masses and nontender Other: Howard in place with cloudy urine Neuro General: patient alert, patient awake and patient oriented x3 COVID-19 Screening Have you, or household traveled for leisure in last 14 days?: No Had IN PERSON contact w/suspected or confirmed C-19 person: No
[2020-07-04] MEDS: Lactated Ringers 1,000 ML 80 ML IV ×2 (10:22→14:05)
[2020-07-04] MEDS: CIPROFLOXACIN 400 MG/200 ML BAG 200 MG IVPB (11:48)
[2020-07-04] MEDS: Lidocaine 2% Jelly 6 ML SYR (12:11)
--- NOTE | 2020-07-04 12:30 | PROST_PTH ---
PATIENT: Terence Rosario LOC: U#:[id number] AGE/SX: 80/M ROOM: [id number] RE07/04/[address]: Neville Horton MD : [id number] BED: A DIS: 07/05/2020 SPEC #: [id number] RECD: 07/04/20 17:28 STATUS: SOUT REQ #: [id number] DAVID: 07/04/20 12:[address]: Neville Horton DEPT: Surgical Specimen RECD BY: Micaela Agee ENTERED: 07/04/20 17:29 SP TYPE: PROST OTHR DR: Carlos Cuellar DO Tissues: 1 - PROSTATE CURRETTINGS Procedures: GROSS AND MICRO LEVEL 5 Comments: [id number]
--- NOTE | 2020-07-04 15:04 | ROE_ITS ---
Date of service: 07/04/20 Time of Service: 15:04 Operative Note Operative Note DATE OF PROCEDURE: 07/04/20 PRE-OP DIAGNOSIS: Urinary retention POST-OP DIAGNOSIS: same PROCEDURE: Cystoscopy, Transurethral resection of prostate SURGEON: Neville Horton ANESTHESIA: other (General without intubation) ESTIMATED BLOOD LOSS: 300 PATHOLOGY: other (prostate chips) COMPLICATIONS: None Patient was transported to: PACU Patient's condition: stable Implants: 24 [place] Citizen hematuria cheng catheter with 50 cc in balloon Indications: This is an 80-year-old gentleman who developed urinary retention after a bowel surgery. He has failed maximal medical therapy and presents now for transurethral resection of the prostate. He did have a preop urodynamic study which showed that his detrusor muscle does generate an adequate pressure Findings: Trilobar enlargement Procedure Description: The patient was brought to the operating room on 07/04/2020. After successful induction of general anesthesia without intubation, he was placed in the prone position. His indwelling catheter was removed. His genitalia was prepped and draped. He was given preoperative IV antibiotics. A 24 [place] Citizen resectoscope sheath was passed through the urethra into the bladder. We inspected the urethra and bladder using a 30 degree lens. The pendulous bulbous and membranous urethra was appeared normal with no strictures. The prostatic urethra showed trilobar hypertrophy with a rather prominent median lobe. The bladder was somewhat erythematous especially along the posterior wall as would be expected with a chronic indwelling catheter. No papillary or nodular lesions were seen within the bladder. We then used an Mccabe resectoscope and bipolar cautery to resect the prostate from the bladder neck out to the verumontanum. We first took down the median lobe, then addressed the lateral lobes and anterior tissue. All resected tissue was evacuated and sent to pathology for permanent section. Toward the end of the resection, we switched over to a plasma button and vaporize the remaining prostate down to the prostatic capsule. Once hemostasis had been obtained, we filled the bladder with irrigant. We removed the resectoscope and passed a 24 [place] Citizen hematuria catheter through the urethra into the bladder. The catheter balloon was inflated with 50 cc of sterile water. Traction was placed on the catheter until the irrigant became clear. Continuous bladder irrigation with saline was utilized. He tolerated the procedure with no complications. He will be admitted overnight for continuous bladder irrigation.
[2020-07-04] MEDS: traMADol 50 MG TAB PO (16:03)
[2020-07-04 16:42] LABS: Anion Gap 4.8 mmol/L (3-11); BUN 15 mg/dL (7-18); CO2 28.2 mmol/L (21.0-32.0); CREATININE 0.98 mg/dL (0.70-1.30); Calcium 9.1 mg/dL (8.5-10.1); Chloride 105 mmol/L (98-107); Glucose 150 mg/dL (74-106); Potassium 4.8 mmol/L (3.5-5.1); Sodium 138 mmol/L (136-145)
[2020-07-04] MEDS: Docusate Sodium 100 MG CAP PO (19:33)
[2020-07-04] MEDS: Ketorolac 15 MG/ML VIAL IVP (19:33)
[2020-07-04] MEDS: Ciprofloxacin 500 MG TAB PO (19:33)
[2020-07-04] MEDS: Omeprazole 20 MG CAPCR 40 MG PO (19:33)
[2020-07-04] MEDS: Lactated Ringers 1,000 ML 100 ML IV (19:38)
[2020-07-04] MEDS: Tamsulosin 0.4 MG CAPCR 0.8 MG PO (21:59)
[2020-07-04] MEDS: Finasteride 5 MG TAB PO (22:00)
[2020-07-05] MEDS: Oxymetazolone 0.05% SPRAY 15 ML BTL NS ×2 (00:53→05:18)
[2020-07-05] MEDS: Lactated Ringers 1,000 ML 100 ML IV (05:19)
[2020-07-05 06:44] LABS: HCT 34.2 % (40.0-50.0); HGB 11.6 g/dL (13.5-17.5); MCH 31.2 pg (27.0-33.0); MCHC 33.9 % (32.0-36.0); MCV 91.9 fL (80-95); MPV 9.6 fL (8.0-11.0); Platelet Count 206 10^3/uL (130-400); RBC 3.72 10^6/uL (4.36-5.78); RDW 12.3 % (11.8-14.1); RDW-SD 41.3 fL; WBC 11.92 10^3/uL (4.4-10.8)
[2020-07-05 07:12] VITALS: BP 136/74; PULSE 94; RESP 18; TEMP 37; O2SAT 96
--- NOTE | 2020-07-05 07:47 | W.PM.PROGNOT ---
Date of Service Date of service: 07/05/20 Time of Service: 07:47 Assessment and Plan Assessment and plan (1) Retention of urine: Status: Acute Assessment and plan: We will discontinue his bladder irrigation. I have also removed 20 cc from his catheter balloon (there is still 30 cc present). We will Hep-Lock his IV and get him up moving this morning. As long as his urine remains transparent, we will discharge him to home. We will leave his catheter to a leg bag. He will come to our office next week to have his catheter removed. Subjective Subjective Interval history since last seen: He had a fairly comfortable night with one episode of catheter occlusion. When the catheter was irrigated, a piece of prostate tissue was removed. He did not have any blood clots. He has been able to take oral nutrition and medications. Exam Narrative Exam Narrative: He looks comfortable. His vital signs are documented elsewhere His abdomen is soft. Urine outflow is clear He is awake and alert This morning's lab work is reviewed and is unremarkable. Objective Last Vital Signs Temp 37.0 C 07/05/20 07:12 Pulse 94 H 07/05/20 07:12 Resp 18 07/05/20 07:12 BP 136/74 07/05/20 07:12 Pulse Ox 96 07/05/20 07:12 Laboratory Results - last 24 hr 07/04/20 07/05/20 16:10 06:20 WBC 11.92 H RBC 3.72 L Hgb 11.6 L Hct 34.2 L MCV 91.9 MCH 31.2 MCHC 33.9 RDW 12.3 Plt Count 206 MPV 9.6 Sodium 138 Potassium 4.8 Chloride 105 Carbon Dioxide 28.2 Anion Gap 4.8 BUN 15 Creatinine 0.98 Estimated GFR/1.73 m2 >= 60.00 Glucose 150 H Calcium 9.1
--- NOTE | 2020-07-05 07:55 | DSE_ITS ---
Date of service: 07/05/20 Time of Service: 07:55 DS: Diagnosis Discharge Diagnosis (1) Retention of urine: Status: Acute Discharge Plan Disposition Patient Disposition: HOME Condition: Stable Discharge Details Reason For Visit: URINARY RETENTION Admit Date/Time: 07/04/20 09:28 Admit Provider: Neville Horton Attending Provider: Neville Horton Primary Care Provider: Carlos Cuellar Hospital Course Hospital Course: The patient was admitted and underwent transurethral resection of the prostate on 07/05/2020. An irrigating catheter was placed intraoperatively and continuous bladder irrigation was maintained overnight. His catheter occluded 1 time due to prostate tissue but he had no clot retention. On postoperative day #1, his irrigant was completely clear so his bladder irrigation was discontinued. He was tolerating oral nutrition and medications, so his IV was discontinued. He was able to ambulate independently. He is being discharged to home with his catheter to a leg bag. Home Meds and New Rx's Prescriptions: No Action clotrimazole-betamethasone 1-0.05 % cream 1 applic TP BID Qty: 45 RF: 0 glucosamine-chondroitin 500-400 mg tablet 3 tab PO BID RF: 0 multivitamin [Daily Multi-Vitamin] 1 EACH tablet 1 ea PO DAILY RF: 0 cholecalciferol (vitamin D3) 2,000 UNIT tablet 2,000 unit PO DAILY RF: 0 omeprazole 40 mg capsule,delayed release(DR/EC) 40 mg PO BID Qty: 180 RF: 3 warfarin 5 mg tablet 5 mg PO PER PROTOCOL Qty: 90 RF: 6 rosuvastatin [Crestor] 10 mg tablet 10 mg PO DAILY Qty: 90 RF: 3 tamsulosin [Flomax] 0.4 mg capsule 0.8 mg PO HS RF: 0 finasteride 5 mg tablet 5 mg PO HS RF: 0 Discharge Instructions Additional Instructions: Howard to leg bag Follow-up appointment next week for catheter removal Follow-up in 2 weeks for surgical pathology report The patient should continue the tamsulosin and finasteride until his 2-week follow-up visit (at which time they will be discontinued) The patient tells me he discontinued his warfarin 4 to 5 months ago, so there is no need for him to restart it. The patient can restart his [id number] NSAIDs Activity:: No lifting over 10 pounds Equipment/Supplies:: Howard to leg bag with cat Diet:: As Tolerated Discharge Orders Discharge Orders: Discharge Order (Routine); Ordered 07/05/20 Ordered By: Neville Horton DS: Summary Status at Discharge Functional status at discharge: independent ambulation Overall status at discharge: patient is back to baseline Mental Status: mental status grossly normal Speech and Movement: speech and movement normal Mood: congruent mood Affect: normal affect Time Spent with Patient providing and/or coordinating discharge services: Less than 30 minutes Exam Narrative Exam Narrative: At the time of discharge, he is comfortable and afebrile His vital signs are documented elsewhere His lungs are clear Cardiac exam shows a regular rate and rhythm His abdomen is soft His urine is transparent in his catheter He is awake and alert Psych Mental Status: mental status grossly normal Speech and Movement: speech and movement normal Mood: congruent mood Affect: normal affect DS: Data Vitals/I&O Vitals and I&O: Vital Signs Temperature 37.0 C 07/05/20 07:12 Temperature Source Tympanic 07/05/20 07:12 Pulse 94 H 07/05/20 07:12 Pulse Rhythm Regular 07/04/20 19:30 Respiratory Rate 18 07/05/20 07:12 Respiratory Effort Non-Labored 07/04/20 19:30 Respiratory Depth Normal 07/04/20 19:30 Respiratory Pattern Normal 07/04/20 19:30 Blood Pressure 136/74 07/05/20 07:12 Pulse Oximetry 96 07/05/20 07:12 Respiratory End-tidal CO2 20 07/04/20 14:40 Oxygen Delivery Method Room Air 07/05/20 07:12 Oxygen Flow Rate 0 07/05/20 07:12 Pain Level 0 07/05/20 07:12 Comment 07/04/20 15:32 Intake & Output 07/04/20 07/04/20 07/05/20 11:59 23:59 11:59 Intake Total 1925 968.333 / 968.333 Balance 1925 968.333 / 968.333 Weight 79 kg Intake: IV 896 / 896 968.333 / 968.333 Oral 1030 / 1030 Other: Urine Color Pale Pale [place] Urine Appearance Clear Hematuria Comment all symptoms resolved post irrigation very pale Emesis Description None Data Completed and Pending Labs on day of discharge: Labs from last 24 hours 07/05/20 07/04/20 06:20 16:10 WBC 11.92 H RBC 3.72 L Hgb 11.6 L Hct 34.2 L MCV 91.9 MCH 31.2 MCHC 33.9 RDW 12.3 Plt Count 206 MPV 9.6 Sodium 138 Potassium 4.8 Chloride 105 Carbon Dioxide 28.2 Anion Gap 4.8 BUN 15 Creatinine 0.98 Estimated GFR/1.73 m2 >= 60.00 Glucose 150 H Calcium 9.1 PFSH Medical History Abnormal CT scan, sigmoid colon Atrial fibrillation Change in stool Colonic mass Infected sebaceous cyst of skin Right calf pain Sigmoidoscopy performed (~09/24/16) 02/24/17 Dr. Adan with Polypectomies Stroke (~12/2018) Villous adenoma of left colon Weight loss Surgical History Griffin's ablation [facility] [place]-12/17/16 Excision, Skin Mass sebaceous cyst History of colonoscopy (~07/10/19) History of radiofrequency ablation procedure for cardiac arrhythmia Social History Smoking/Tobacco Use Status: Never Smoking risk assessment performed?: Yes Alcohol Intake: never Drug use: Never Substance use type: does not use Current gender identity: male Do you feel safe at home: Yes Do you feel safe in your relationship?: Yes
[2020-07-05] MEDS: Omeprazole 20 MG CAPCR 40 MG PO (08:25)
[2020-07-05] MEDS: Docusate Sodium 100 MG CAP PO (08:26)
[2020-07-05] MEDS: Rosuvastatin 10 MG TAB PO (08:26)
[2020-07-05] MEDS: Ciprofloxacin 500 MG TAB PO (08:27)
== END 2020-07-05 09:54 | disposition home or self-care (01) | DRG 714 ==
LOC: PDS 13:41 → MS 15:00
PROVIDERS: Admitting Provider Urology; PCP Emergency Medicine; Visit Provider Urology
PROC: 0VT08ZZ Resection of Prostate, Via Natural or Artificial Opening Endoscopic (ICD-10-PCS; CPT 52601; principal; 2020-07-04 11:15)
DX: N40.1 Benign prostatic hyperplasia with lower urinary tract symptoms (principal); R33.9 Retention of urine, unspecified; I48.91 Unspecified atrial fibrillation; Z86.73 Personal history of transient ischemic attack (TIA), and cerebral infarction without residual deficits; I10 Essential (primary) hypertension; G58.8 Other specified mononeuropathies; K21.9 Gastro-esophageal reflux disease without esophagitis
CPT/HCPCS: 52601; 36415; 80048; 85027; 88305; NC; 88307; J0744; J1100; J1885; J2405; J2704

== ENCOUNTER → 2020-07-08 08:27 | Outpatient (BNVA) | payer MEDICARE, SELFPAY | PROVIDERS: PCP Emergency Medicine; Referring Provider Emergency Medicine; Visit Provider Nurse Practitioner Gerontology | DX: R33.8 Other retention of urine (principal); Z46.6 Encounter for fitting and adjustment of urinary device | CPT/HCPCS: 99213 ==

== ENCOUNTER 2020-07-11 09:46 | Outpatient (REF) | payer MEDICARE, SELFPAY ==
[2020-07-11 10:12] LABS: Bilirubin Negative (Negative); Blood Moderate (Negative); Clarity Sl Cloudy (Clear); Glucose Negative (Negative); Ketones Negative (Negative); Leukocyte Esterase Small (Negative); Nitrite Negative (Negative); Specific Gravity 1.025 (1.005-1.025); Urobilinogen 0.2 EU/dL (Up TO 0.2)
[2020-07-11 10:24] LABS: Bacteria Few HPF (Negative); Crystals Negative HPF (Negative); Epithelial Cells Rare HPF (Negative); Mucus Negative (Negative)
[2020-07-11 10:25] LABS: C & S Indicated? Yes; RBC >50 HPF (0-2)
== END 2020-07-11 10:06 ==
LOC: LBO 09:46
PROVIDERS: PCP Emergency Medicine; Visit Provider Nurse Practitioner Gerontology
DX: R32 Unspecified urinary incontinence (principal); R35.0 Frequency of micturition
CPT/HCPCS: 81003; 81015; 87086

== ENCOUNTER → 2020-07-16 15:01 | Outpatient (BNVA) | payer MEDICARE, SELFPAY | PROVIDERS: PCP Emergency Medicine; Referring Provider Emergency Medicine; Visit Provider Urology | DX: Z48.816 Encounter for surgical aftercare following surgery on the genitourinary system (principal); R33.8 Other retention of urine ==

== ENCOUNTER → 2020-08-12 13:54 | Outpatient (BNVA) | payer MEDICARE, SELFPAY | PROVIDERS: PCP Emergency Medicine; Referring Provider Emergency Medicine; Visit Provider Nurse Practitioner Gerontology | DX: R35.0 Frequency of micturition (principal); Z48.816 Encounter for surgical aftercare following surgery on the genitourinary system ==

== ENCOUNTER → 2020-10-10 13:28 | Outpatient (BNVA) | payer MEDICARE, SELFPAY | PROVIDERS: PCP Emergency Medicine; Referring Provider Emergency Medicine; Visit Provider Nurse Practitioner Gerontology | DX: R35.0 Frequency of micturition (principal); Z98.890 Other specified postprocedural states | CPT/HCPCS: 99213 ==

== ENCOUNTER → 2021-04-14 10:32 | Outpatient (BNVA) | payer MEDICARE, SELFPAY | PROVIDERS: PCP Emergency Medicine; Referring Provider Emergency Medicine; Visit Provider Nurse Practitioner Gerontology | DX: R35.0 Frequency of micturition (principal); R35.1 Nocturia; R39.15 Urgency of urination | CPT/HCPCS: 99214 ==

== ENCOUNTER → 2021-10-13 10:28 | Outpatient (BNVA) | payer MEDICARE, SELFPAY | PROVIDERS: PCP Family Medicine; Referring Provider Family Medicine; Visit Provider Nurse Practitioner Gerontology | DX: R33.8 Other retention of urine (principal); R35.0 Frequency of micturition | CPT/HCPCS: 99214 ==

== ENCOUNTER 2021-11-12 11:08 | Outpatient (CLI) | payer MEDICARE, SELFPAY ==
--- NOTE | 2021-11-12 11:00 | RT.EKG_ITS ---
APPROVED REPORT Exam: Resting ECG Reason for Exam: irregular heartbeat Patient Location: O HR:68 bpm ECG Measurements Heart Rate 68 AXIS [place] [id number] P [id number] QRSd 86 QRS -41 QT 427 T 55 QTc 473 Conclusion Atrial fibrillation...V-rate 55- 82, irreg A-activity Left axis deviation...QRS axis (-30,-90)
== END 2021-11-12 11:09 | disposition home or self-care (01) ==
PROVIDERS: PCP Family Medicine; Visit Provider Family Medicine
DX: I49.9 Cardiac arrhythmia, unspecified (principal)
CPT/HCPCS: 93010

== ENCOUNTER 2021-11-12 13:48 | Outpatient (CLI) | payer MEDICARE, SELFPAY ==
[2021-11-12 12:53] LABS: Abs Immature Grans 0.02 10^3/uL (0.0-0.06); Absolute Basophil Count 0.04 10^3/uL (0.0-0.2); Absolute Eosinophil Count 0.07 10^3/uL (0.0-0.7); Absolute Lymphocyte Count 1.22 10^3/uL (1.2-3.4); Absolute Monocyte Count 0.56 10^3/uL (0.1-0.8); Absolute Neutrophil Count 4.52 10^3/uL (1.2-6.7); Basophils % 0.6; Eosinophils % 1.1; HCT 41.6 % (40.0-50.0); HGB 13.6 g/dL (13.5-17.5); Immature Grans % 0.3; MCH 31.3 pg (27.0-33.0); MCHC 32.7 % (32.0-36.0); MCV 95.6 fL (80-95); MPV 9.6 fL (8.0-11.0); Monocytes % 8.7; Neutrophils % 70.3; Nucleated RBC 0 %; Platelet Count 216 10^3/uL (130-400); RBC 4.35 10^6/uL (4.36-5.78); RDW 12.5 % (11.8-14.1); RDW-SD 43.7 fL; WBC 6.43 10^3/uL (4.4-10.8)
[2021-11-12 13:04] LABS: INR 1.1 (0.9-1.1); Prothrombin Time 11.1 sec (9.3-11.0)
[2021-11-12 13:30] LABS: ALT 28 U/L (16-63); AST 18 U/L (15-37); Alkaline Phosphatase 82 U/L (46-116); Anion Gap 8.2 mmol/L (3-11); BUN 18 mg/dL (7-18); Bilirubin, Total 0.6 mg/dL (0.2-1.0); CO2 29.8 mmol/L (21.0-32.0); Calcium 9.4 mg/dL (8.5-10.1); Calculated LDL 43 mg/dL (<100); Chloride 103 mmol/L (98-107); Cholesterol 130 mg/dL (<200); Ferritin 31 ng/mL (26-388); Glucose 116 mg/dL (74-106); HDL Cholesterol 71 mg/dL (40-60); Potassium 4.3 mmol/L (3.5-5.1); Sodium 141 mmol/L (136-145); TSH (W/Ref FT4) 2.91 uIU/mL (0.36-3.74); Total Protein 7.9 g/dL (6.4-8.2); Triglyceride 82 mg/dL (<150); Vitamin B12 823 pg/mL (193-986)
[2021-11-12 13:31] LABS: Folate > 20.0 ng/mL (8.6-20.0)
[2021-11-12 13:45] LABS: Iron 78 ug/dL (65-175); Total Iron Binding Capacity 386 ug/dL (250-450); Transferrin Sat 20 % (20-55)
[2021-11-12 14:34] LABS: Hemoglobin A1C 6.5 % (<5.7)
== END 2021-11-12 13:49 | disposition home or self-care (01) ==
LOC: LBO 13:51
PROVIDERS: PCP Family Medicine; Visit Provider Family Medicine
DX: D64.9 Anemia, unspecified (principal); E78.5 Hyperlipidemia, unspecified; I10 Essential (primary) hypertension; K59.00 Constipation, unspecified; D36.9 Benign neoplasm, unspecified site; R73.9 Hyperglycemia, unspecified; I49.9 Cardiac arrhythmia, unspecified
CPT/HCPCS: 36415; 80053; 80061; 82607; 82728; 82746; 83036; 83540; 83550; 84443; 85025; 85610

== ENCOUNTER 2021-12-12 18:12 | Outpatient (REF) | payer MEDICARE, SELFPAY | END 2021-12-12 18:13 | disposition home or self-care (01) | LOC: NCHCN 18:12 | PROVIDERS: PCP Family Medicine; Visit Provider Nurse Practitioner Gerontology | DX: L72.0 Epidermal cyst (principal) | CPT/HCPCS: 87077; 87070; 87186; 87205 ==

== ENCOUNTER → 2021-12-18 13:57 | Outpatient (BNVA) | payer MEDICARE, SELFPAY | PROVIDERS: PCP Family Medicine; Referring Provider Family Medicine; Visit Provider Physical Therapy Assistant | DX: I48.91 Unspecified atrial fibrillation (principal); L72.9 Follicular cyst of the skin and subcutaneous tissue, unspecified | CPT/HCPCS: 99213 ==

== ENCOUNTER → 2022-01-01 10:51 | Outpatient (BNVA) | payer MEDICARE, SELFPAY | PROVIDERS: PCP Family Medicine; Referring Provider Family Medicine; Visit Provider Physical Therapy Assistant | DX: L72.3 Sebaceous cyst (principal) | CPT/HCPCS: 99442 ==

== ENCOUNTER 2022-01-15 11:41 | Outpatient (REF) | payer MEDICARE, SELFPAY ==
--- NOTE | 2022-01-15 13:45 | SKI_PTH ---
PATIENT: Terence Rosario LOC: [facility] U#:[id number] AGE/SX: 81/M ROOM: RE01/15/[address]: JACLYN Dutta : 1940 BED: DIS: 01/15/2022 SPEC #: [id number] RECD: 01/15/22 16:57 STATUS: LORI REQ #: [id number] DAVID: 01/15/22 13:[address]: Snow Walters DEPT: Surgical Specimen RECD BY: Micaela Agee ENTERED: 01/15/22 16:58 SP TYPE: KATELYN CHENG DR: Pieter Truong MD Tissues: 1 - SKIN CYST/TAG/DEBRIDEMENT 2 - SKIN CYST/TAG/DEBRIDEMENT 3 - SKIN CYST/TAG/DEBRIDEMENT Procedures: GROSS AND MICRO LEVEL 3 Comments: [id number]
== END 2022-01-15 11:42 | disposition home or self-care (01) ==
LOC: LBN 11:41
PROVIDERS: PCP Family Medicine; Visit Provider Physical Therapy Assistant
DX: L72.0 Epidermal cyst (principal); L90.5 Scar conditions and fibrosis of skin
CPT/HCPCS: 88304

== ENCOUNTER → 2022-01-15 12:55 | Outpatient (BNVA) | payer MEDICARE, SELFPAY | PROVIDERS: PCP Family Medicine; Referring Provider Family Medicine; Visit Provider Physical Therapy Assistant | DX: L72.0 Epidermal cyst (principal); L90.5 Scar conditions and fibrosis of skin | CPT/HCPCS: 11403 ==

== ENCOUNTER → 2022-01-22 12:57 | Outpatient (BNVA) | payer MEDICARE, SELFPAY | PROVIDERS: PCP Family Medicine; Referring Provider Family Medicine; Visit Provider Physical Therapy Assistant | DX: Z48.817 Encounter for surgical aftercare following surgery on the skin and subcutaneous tissue (principal) | CPT/HCPCS: 99212 ==

== ENCOUNTER 2022-01-24 11:51 | Outpatient (REF) | payer MEDICARE, SELFPAY | END 2022-01-24 11:52 | disposition home or self-care (01) | LOC: LBN 11:51 | PROVIDERS: PCP Family Medicine; Visit Provider Nurse Practitioner Family | DX: L98.8 Other specified disorders of the skin and subcutaneous tissue (principal); L72.3 Sebaceous cyst | CPT/HCPCS: 87077; 87070; 87186; 87205 ==

== ENCOUNTER → 2022-01-28 09:44 | Outpatient (BNVA) | payer MEDICARE, SELFPAY | PROVIDERS: PCP Family Medicine; Referring Provider Family Medicine; Visit Provider Physical Therapy Assistant | DX: C44.91 Basal cell carcinoma of skin, unspecified (principal) | CPT/HCPCS: 99212 ==

== ENCOUNTER → 2022-01-28 10:14 | Outpatient (BNVA) | payer MEDICARE, SELFPAY | PROVIDERS: PCP Family Medicine; Referring Provider Family Medicine; Visit Provider Nurse Practitioner Gerontology | DX: R35.0 Frequency of micturition (principal) | CPT/HCPCS: 51798; 99212; 99214 ==

== ENCOUNTER → 2022-02-03 10:32 | Outpatient (BNVA) | payer MEDICARE, SELFPAY | PROVIDERS: PCP Family Medicine; Referring Provider Family Medicine; Visit Provider Physical Therapy Assistant | DX: L72.3 Sebaceous cyst (principal) | CPT/HCPCS: 99212 ==

== ENCOUNTER → 2022-02-26 12:57 | Outpatient (BNVA) | payer MEDICARE, SELFPAY | PROVIDERS: PCP Family Medicine; Referring Provider Family Medicine; Visit Provider Physical Therapy Assistant | DX: L72.0 Epidermal cyst (principal) | CPT/HCPCS: 99212 ==

== ENCOUNTER 2022-03-10 14:01 | Outpatient (REF) | payer MEDICARE, SELFPAY | END 2022-03-10 14:02 | disposition home or self-care (01) | LOC: LBN 14:01 | PROVIDERS: PCP Family Medicine; Visit Provider Physician Assistant | DX: L98.8 Other specified disorders of the skin and subcutaneous tissue (principal) | CPT/HCPCS: 87070; 87205 ==

== ENCOUNTER → 2022-03-11 11:37 | Outpatient (BNVA) | payer MEDICARE, SELFPAY | PROVIDERS: PCP Family Medicine; Referring Provider Family Medicine; Visit Provider Nurse Practitioner Gerontology | DX: R35.1 Nocturia (principal); R35.0 Frequency of micturition | CPT/HCPCS: 51798; 99214 ==

== ENCOUNTER → 2022-03-18 11:24 | Outpatient (BNVA) | payer MEDICARE, SELFPAY | PROVIDERS: PCP Family Medicine; Referring Provider Family Medicine; Visit Provider Surgery | DX: L02.413 Cutaneous abscess of right upper limb (principal); Z51.89 Encounter for other specified aftercare | CPT/HCPCS: 99213 ==

== ENCOUNTER → 2022-04-01 09:56 | Outpatient (BNVA) | payer MEDICARE, SELFPAY | PROVIDERS: PCP Family Medicine; Referring Provider Family Medicine; Visit Provider Surgery | DX: L02.414 Cutaneous abscess of left upper limb (principal); Z51.89 Encounter for other specified aftercare | CPT/HCPCS: 99213 ==

== ENCOUNTER → 2022-06-16 12:55 | Outpatient (BNVA) | payer MEDICARE, SELFPAY | PROVIDERS: PCP Family Medicine; Referring Provider Family Medicine; Visit Provider Surgery | DX: Z79.01 Long term (current) use of anticoagulants (principal); L72.3 Sebaceous cyst; L08.9 Local infection of the skin and subcutaneous tissue, unspecified; I48.91 Unspecified atrial fibrillation | CPT/HCPCS: 99212; 99213 ==

== ENCOUNTER → 2022-07-06 10:24 | Outpatient (BNVA) | payer MEDICARE, SELFPAY | PROVIDERS: PCP Family Medicine; Referring Provider Family Medicine; Visit Provider Surgery | DX: L72.9 Follicular cyst of the skin and subcutaneous tissue, unspecified (principal) | CPT/HCPCS: 99213 ==

== ENCOUNTER 2022-07-31 07:26 | Day surgery (SDC) | payer MEDICARE, SELFPAY ==
--- NOTE | 2022-07-30 20:18 | PDOC.DSDIS_ITS ---
Date of service: 07/31/22 Time of Service: 09:51 Discharge Plan Disposition Patient Disposition: Home Condition: Good Discharge Details Reason For Visit: excision of sebaceous cysts Attending Provider: Mukesh Monson Primary Care Provider: Pieter Truong Home Meds and New Rx's Prescriptions: New tramadol 50 mg tablet 50 mg PO Q12H PRN (Reason: pain) Qty: 6 0RF Rx Instructions: take 1 tablet by mouth every 12 hours if needed for severe pain. This medication is addictive, and should be used with caution. Continued clotrimazole-betamethasone 1-0.05 % cream 1 applic TP BID Qty: 45 0RF Rx Instructions: Apply pea-sized amount twice a day to affected area for 2 weeks only unless directed otherwise rosuvastatin [Crestor] 10 mg tablet 10 mg PO DAILY Qty: 90 3RF mupirocin 2 % ointment 1 applic topical BID Qty: 15 0RF Rx Instructions: apply twice daily for 7 days glucosamine-chondroitin 500-400 mg tablet 3 tab PO BID omega-3 fatty acids [Fish Oil Concentrate] 1,000 mg capsule 1,000 mg PO DAILY docusate sodium 100 mg capsule 100 mg PO BID Qty: 180 3RF omeprazole 40 mg capsule,delayed release(DR/EC) 40 mg PO BID Qty: 180 3RF cholecalciferol (vitamin D3) 50 mcg (2,000 unit) tablet 1,000 unit PO DAILY Held Eliquis 5 mg tablet 5 mg PO BID Qty: 180 3RF Hold Instructions: Resume on 08/01/22. Discharge Instructions Instructions: Dermal Cyst Excision (DC) Additional Instructions: 1. Resume all of your medications, except Eliquis, which you should restart on 08/01 2. Okay to use tylenol and ibuprofen over the counter as needed. Use tramadol as needed for severe pain 3. Leave bandages in place for 24 hours, then remove. 4. Shower with warm soapy water. Pat dry. Use a bandaid if needed to protect your clothing. 5. No soaking or tub baths until I see you in the office. 6. No heavy lifting until I see you in the office. 7.Call the office (or go directly to the emergency room after hours) if you notice any of the following: Develop chills (warm to touch), or if you have a thermometer and your temperature is above 101 Difficulty breathing or difficultly swallowing Persistent vomiting Any bleeding ? exceeding one tablespoon 8. Call your physician if the site where your intravenous was started becomes red, swollen, painful, and warm to touch. Referrals: Mukesh Monson MD [ [facility] STAFF PHYSICIAN] - (10-14 days) Activity:: Activity as Tolerated Remove Dressings/Wound Care:: 24 hours Shower/Bathe:: 24 hours Diet:: As Tolerated Discharge Orders Discharge Orders: Discharge Order (Routine); Ordered 07/30/22 Ordered By: Mukesh Monson DS: Diagnosis Discharge Diagnosis (1) Cyst of skin: Status: Acute Asessment and Plan: excision of multiple sebaceous cysts Performed excision of 4 sebaceous cysts. -Follow the discharge instructions -Follow-up in my office 10 to 14 days for suture removal
--- NOTE | 2022-07-30 20:21 | W.PM.OP ---
Date of service: 07/31/22 Time of Service: 09:55 Operative Note Operative Note DATE OF PROCEDURE: 07/31/22 PRE-OP DIAGNOSIS: Epidermal inclusion cysts POST-OP DIAGNOSIS: same PROCEDURE: Excision and primary closure of epidermal inclusion cyst times 4 SURGEON: Mukesh Monson BREASTFEEDING PROGRAM COORDINATOR: Snow Walters ANESTHESIA TYPE: Local By Surgeon and MAC Refer to Anesthesia Record ESTIMATED BLOOD LOSS: 30 COMPLICATIONS: None Patient was transported to: same day Patient's condition: stable Indications: Terence is an 82-year-old male with multiple epidermal inclusion cyst on various parts of his body. Unfortunately, he has experienced several episodes of infection of the cyst, requiring incision and drainage. He is here for elective excision of cyst on the left flank x2, as well as the right back x2. Procedure Description: After mild sedation, Terence was assisted to a modified right lateral decubitus position. Great care was taken to make sure that he was comfortable, and that all of his points of contact were padded. Next, as his anesthetic was increased, the left flank and back were prepped and draped in the usual fashion. I started working in the area of the right scapula. I made a semielliptical incision, including the central portion of what appeared to be a sebaceous cyst. I incised the skin with a 15 blade scalpel, and continued the dissection sharply. I took great care to encompass the entirety of the cyst with a margin of normal fat. Once the specimen was completely excised, it was passed off, and the wound was irrigated. Bovie device was used to assist with hemostasis at the wound base. The deeper layer was closed with Vicryl stitches, and the skin edge was approximated with interrupted nylon sutures. This process was then repeated on the lesion on the more medial aspect of the right lower back, as well as the left anterior flank. The other lesion on the left flank was more towards the mid axillary line and a bit lower down. This was an area of previous infected sebaceous cyst, and is mostly scar tissue. There was a small skin defect slightly below the level of the incision site that appeared consistent with a active sebaceous cyst. This was incorporated into the excision. Similar to the other lesions, the dissection was performed sharply. Hemostasis was achieved with the Bovie device, and the deeper layer was closed with Vicryl stitches prior to interrupted nylon sutures closing the skin. All the wounds were hemostatic prior to the application of dressings. Local anesthetic with epinephrine was used to field block each site. The approximate excision sizes are as follows: Right scapular-4 cm x 2 cm x 1 cm Right back- 2.5 cm x 1 cm x 0.75 cm Left anterior flank 3 cm x 1.5 cm x 1 cm Left mid axillary flank- 7 cm by 3 cm x 2 cm
[2022-07-31 07:30] VITALS: BP 181/104; PULSE 90; RESP 18; TEMP 36.4; O2SAT 99
[2022-07-31] MEDS: Gabapentin 300 MG CAP PO (07:58)
[2022-07-31] MEDS: Acetaminophen 500 MG TAB 1000 MG PO (07:58)
[2022-07-31] MEDS: Lactated Ringers 1,000 ML 80 ML IV (07:59)
--- NOTE | 2022-07-31 08:09 | W.ANESPRE ---
General Info Date of Service Date Performed: 07/31/22 Height: 5 ft 11.5 in Weight: 75.4 kg Body Mass Index (BMI): 22.8 Surgical Procedure: Operation Date: 07/31/22 08:40 Proposed Procedure Side Surgeon p Excision and Primary Closure of Multiple Sebaceous Cysts Mukesh Monson MD Meds Allergies and Home Medications Allergies Allergy/AdvReac Type Severity Reaction Status Date / Time Penicillins Allergy Severe hives all Verified 07/31/22 07:44 over body tomato Allergy Intermediate red spots Verified 07/31/22 07:44 on trunk aspirin AdvReac Intermediate GI upset Verified 07/31/22 07:44 adhesive tape AdvReac Mild redness Verified 07/31/22 07:44 Home Medication Medication Instructions Recorded glucosamine-chondroitin 500 mg-400 3 tab PO BID 01/25/19 mg tablet clotrimazole-betamethasone 1 1 applic topical BID #45 grams 01/17/20 %-0.05 % topical cream omega-3 fatty acids 1,000 mg 1,000 mg PO DAILY 04/14/21 capsule (Fish Oil Concentrate) omeprazole 40 mg capsule,delayed 40 mg PO BID #180 tab-caps 09/27/21 release apixaban 5 mg tablet (Eliquis) 5 mg PO BID #180 tabs 11/12/21 docusate sodium 100 mg capsule 100 mg PO BID #180 caps 11/12/21 mupirocin 2 % topical ointment 1 applic topical BID #15 grams 01/24/22 rosuvastatin 10 mg tablet (Crestor) 10 mg PO DAILY #90 tabs 02/10/22 cholecalciferol (vitamin D3) 50 1,000 unit PO DAILY 06/09/22 mcg (2,000 unit) tablet Current Visit Medications: Current Medications Generic Name Dose Route Start Last Admin Trade Name Freq PRN Reason Stop Dose Admin Acetaminophen 1,000 mg 07/31/22 06:00 07/31/22 07:58 Acetaminophen 500 Mg Tab PO 08/29/22 23:59 1,000 mg PREOP BALDOMERO Administration Gabapentin 300 mg 07/31/22 06:00 07/31/22 07:58 Gabapentin 300 Mg Cap PO 08/29/22 23:59 300 mg PREOP BALDOMERO Administration Ringer's Solution 1,000 mls @ 80 mls/hr 07/31/22 06:00 07/31/22 07:59 IV 01/28/23 23:59 80 mls/hr INFUSION BALDOMERO Administration Cefazolin Sodium/Dextrose 2 gm in 50 mls @ 100 mls/hr 07/31/22 06:00 Ancef Duplex IVPB 08/29/22 23:59 PREOP BALDOMERO IV Miscellaneous Supplies 1 each 07/31/22 06:00 Iv Access IV 08/29/22 23:59 DIRECTED BALDOMERO Morphine Sulfate 2 mg 07/30/22 20:22 Morphine 4 Mg/Ml Syr IVP Q1H PRN PRN Sodium Chloride 0 ml 07/31/22 06:00 Normal Saline Flush 10 Ml Syr IV 08/29/22 23:59 PRN PRN Sodium Chloride 0 ml 07/31/22 06:00 Normal Saline 10 Ml Vial IJ 08/29/22 23:59 DIRECTED PRN Sterile Water 0 ml 07/31/22 06:00 Water,Injection,Sterile 10 Ml Vial IJ 08/29/22 23:59 DIRECTED PRN Tramadol HCl 50 mg 07/30/22 20:22 Tramadol 50 Mg Tab PO Q6H PRN PRN Pain PFSH Active Problems Active Problems: Problem Status Onset Code Cyst of skin L72.9 Melanoma C43.9 Infected sebaceous cyst of skin L72.3, L08.9 Corns and callosities L84 Nail dystrophy L60.3 Visit for wound check Z51.89 BCC (basal cell carcinoma of skin) C44.91 Diabetes mellitus E11.9 Atrial fibrillation I48.91 Villous adenoma D48.9 Hydrocele N43.3 Gross hematuria R31.0 CVA (cerebral vascular accident) I63.9 Chronic anticoagulation Z79.01 Ventricular arrhythmia I49.9 Tubular adenoma 09/24/16 D36.9 Peripheral neuralgia M79.2 Essential hypertension 06/26/13 I10 Esophagitis 05/26/16 K20.9 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 Antionette with Polypectomies Stroke (~12/2018) Medical History Comments:: Patient says he lays on left side not back when sleeping as it is difficult to breath. Surgical History Surgical History Griffin's ablation [facility] [place]-12/17/16 Excision, Skin Mass sebaceous cyst History of colonoscopy (~07/10/19) History of radiofrequency ablation procedure for cardiac arrhythmia S/P TURP 2020- [facility] Tobacco Smoking/Tobacco Use Status: Never Passive smoking exposure: No Alcohol Alcohol Intake: former Substance Use Substance use: Never Substance use type: does not use Vital Signs and Lab Results Vital Signs Most Recent Vital Signs in EMR: Most Recent Vital Signs Temp Pulse Resp BP Pulse Ox 36.4 C L 90 18 181/104 H 99 07/31/22 07:30 07/31/22 07:30 07/31/22 07:30 07/31/22 07:30 07/31/22 07:30 Lab Results Blood Type / Crossmatch: No Data to Display Complete Blood Count: No Data to Display Complete Metabolic Panel: No Data to Display Liver Function Panel: No Data to Display Coagulation Panel: No Data to Display Cardiac Panel: No Data to Display Arterial Blood Gas: No Data to Display Venous Blood Gas: No Data to Display Pancreas Panel: No Data to Display Thyroid Panel: No Data to Display Infectious Disease: No Data to Display Blood Cultures: No Data to Display Toxicology Panel: No Data to Display Anesthesia Assessment and Plan Anesthesia History Personal History: No History of Anesthesia Complications Family History: No Family History of Anesthesia Complications Exercise Tolerance Exercise Tolerance: Metabolic Equivalents>4 Pertinent Negatives Pertinent Negatives: No Symptoms of GERD Cardiac & Pulmonary Exam Cardiac Exam: Other Pulmonary Exam: Clear Bilateral Breath Sounds Implantable Cardiac Device Does patient have a Pacemaker or an ICD?: No Airway Exam Known Difficult Airway: No Mallampati Class: 1 Mouth Opening: Normal (> 3cm) Thyromental Distance: Greater than 3 cm Neck Range of Motion: Full ROM Neck Circumference: Normal Teeth Condition: Normal Dentition ASA Classification ASA Score: ASA 3 Emergency Case?: No NPO Status NPO Status: NPO Clears >2 hours, Solids >8 hours Anesthesia Plan Resuscitation Status: Full Code Anesthesia Technique: General Anesthesia Airway Planned: Natural Airway Monitors Used: Standard Monitors
[2022-07-31 08:10] VITALS: BMI 22.8
[2022-07-31] MEDS: ceFAZolin 2 GM/50 ML BAG IVPB (08:40)
[2022-07-31] MEDS: Bupivacaine 0.5% Pres-Free W/EPI 30 ML VIAL (09:12)
[2022-07-31 09:30] VITALS: BP 122/90; PULSE 83; RESP 16; TEMP 36.1; O2SAT 95
[2022-07-31 09:55] VITALS: BP 149/103; PULSE 65; RESP 18; TEMP 36; O2SAT 96
--- NOTE | 2022-07-31 10:11 | W.ANESPOSTOP ---
Postoperative Evaluation Date, Time and Location Date Performed: 07/31/22 Time Performed: 10:00 Patient Location: Day Surgery Unit Vital Signs Most Recent Imported Vital Signs: Most Recent Vital Signs Temp Pulse Resp BP Pulse Ox 36 C L 65 18 149/103 H 96 07/31/22 09:55 07/31/22 09:55 07/31/22 09:55 07/31/22 09:55 07/31/22 09:55 Pain Score Most Recent Pain Score: Most Recent Pain Score Pain Level 0 07/31/22 09:55 Assessment Mental Status: Awake (Alert & Oriented to Patient Baseline) Airway and Respiratory Function: Patent airway with normal (patient baseline) respiratory exam Cardiovascular Function: Hemodynamically Stable Hydration Status: Adequately Hydrated Nausea & Vomiting: No Nausea or Vomiting Pain: Pt. Denies Any Pain Peripheral Nerve Block: Patient did not receive a nerve block
== END 2022-07-31 11:03 | disposition home or self-care (01) ==
PROVIDERS: PCP Family Medicine; Visit Provider Surgery
PROC: (CPT 11406; principal; 2022-07-31 08:30)
DX: L72.9 Follicular cyst of the skin and subcutaneous tissue, unspecified (principal)
CPT/HCPCS: 11406; 11404; 11403 ×2; 12035; J0690; J1885; J2405; J2704

== ENCOUNTER → 2022-08-10 11:26 | Outpatient (BNVA) | payer MEDICARE, SELFPAY | PROVIDERS: PCP Family Medicine; Referring Provider Family Medicine; Visit Provider Physical Therapy Assistant | DX: Z48.817 Encounter for surgical aftercare following surgery on the skin and subcutaneous tissue (principal); L72.3 Sebaceous cyst; L72.9 Follicular cyst of the skin and subcutaneous tissue, unspecified ==

== ENCOUNTER → 2022-09-02 09:57 | Outpatient (BNVA) | payer MEDICARE, SELFPAY | PROVIDERS: PCP Family Medicine; Referring Provider Family Medicine; Visit Provider Nurse Practitioner Gerontology | DX: Z98.890 Other specified postprocedural states (principal); R35.0 Frequency of micturition | CPT/HCPCS: 51798; 99214 ==

== ENCOUNTER → 2022-09-07 13:58 | Outpatient (BNVA) | payer MEDICARE, SELFPAY | PROVIDERS: PCP Family Medicine; Referring Provider Family Medicine; Visit Provider Internal Medicine Cardiovascular Disease | DX: I48.11 Longstanding persistent atrial fibrillation (principal); I48.92 Unspecified atrial flutter; I49.8 Other specified cardiac arrhythmias; I10 Essential (primary) hypertension | CPT/HCPCS: 93005; 99203; 99214 ==

== ENCOUNTER 2022-09-07 13:59 | Outpatient (CLI) | payer MEDICARE, SELFPAY ==
--- NOTE | 2022-09-07 13:45 | RT.EKG_ITS ---
APPROVED REPORT Exam: Resting ECG Reason for Exam: cardiac evaluation Patient Location: O HR:86 bpm ECG Measurements Heart Rate 86 AXIS [place] [id number] P [id number] QRSd 89 QRS -14 QT 379 T 61 QTc 454 Conclusion Atrial fibrillation...V-rate 63- 99, irreg A-activity
== END 2022-09-07 14:00 | disposition home or self-care (01) ==
LOC: DI.CARD 14:00
PROVIDERS: PCP Family Medicine; Visit Provider Internal Medicine Cardiovascular Disease
DX: I10 Essential (primary) hypertension (principal); I48.91 Unspecified atrial fibrillation; I49.9 Cardiac arrhythmia, unspecified; R94.31 Abnormal electrocardiogram [ECG] [EKG]
CPT/HCPCS: 93010

== ENCOUNTER 2022-11-11 03:07 | Outpatient (CLI) | payer MEDICARE, SELFPAY ==
[2022-11-11 11:06] LABS: HCT 40.4 % (40.0-50.0); HGB 13.7 g/dL (13.5-17.5); MCH 32.2 pg (27.0-33.0); MCHC 33.9 % (32.0-36.0); MCV 95 fL (80-95); MPV 9.6 fL (8.0-11.0); Platelet Count 204 10^3/uL (130-400); RBC 4.25 10^6/uL (4.36-5.78); RDW 12.7 % (11.8-14.1); RDW-SD 44.7 fL; WBC 4.81 10^3/uL (4.4-10.8)
== END 2022-11-11 03:08 | disposition home or self-care (01) ==
LOC: LOS 03:07
PROVIDERS: PCP Family Medicine; Visit Provider Family Medicine
DX: R53.83 Other fatigue (principal)
CPT/HCPCS: 36415; 85027

== ENCOUNTER → 2022-12-02 13:26 | Outpatient (BNVA) | payer MEDICARE, SELFPAY | PROVIDERS: PCP Family Medicine; Visit Provider Nurse Practitioner Gerontology | DX: R35.0 Frequency of micturition (principal); R39.15 Urgency of urination | CPT/HCPCS: 51798; 99213 ==

== ENCOUNTER 2022-12-11 17:00 | Outpatient (REF) | payer MEDICARE, SELFPAY ==
[2022-12-11 13:46] LABS: Bilirubin Negative (Negative); Blood Negative (Negative); Clarity Clear (Clear); Glucose Negative (Negative); Ketones Negative (Negative); Leukocyte Esterase Negative (Negative); Nitrite Negative (Negative); Specific Gravity 1.015 (1.005-1.025); Urobilinogen 0.2 mg/dL (Up to 0.2)
== END 2022-12-11 17:01 | disposition home or self-care (01) ==
LOC: LBN 17:00
PROVIDERS: PCP Family Medicine; Visit Provider Nurse Practitioner Gerontology
DX: R31.0 Gross hematuria (principal)
CPT/HCPCS: 81003

== ENCOUNTER 2023-01-13 02:47 | Outpatient (CLI) | payer MEDICARE, SELFPAY ==
--- NOTE | 2023-01-13 07:45 | DI.RAD_ITS ---
Exam(s) XR FOOT LT COMPLETE EXAM: XR FOOT LT COMPLETE CLINICAL HISTORY: left foot abnormality,diabetes,. TECHNIQUE: 2D digital imaging was performed. COMPARISON: No exams were available for comparison FINDINGS: 3 views No evidence of fracture or diastasis of the Jenna jennifer joint. There are significant degenerative changes in the 1st 3 tarsometatarsal joints, with relative sparing of the articulations between the bases of 4th and 5th metatarsals and the cuboid. There is an accessory ossicle on the medial aspect of the foot just proximal to the navicular tuberos ity. 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 There is mild degenerative change in the great toe metatarsophalangeal joint. No erosions at this le raul nor elsewhere in the foot. There is pes planus noted. IMPRESSION: Degenerative changes at the 1st 3 tarsometatarsal joints. Pes planus. Mild degenerative changes at the great toe metatarsophalangeal joint. Other findings as discussed above. DATA REPOSITORY: RADIATION DOSE DELIVERED:
== END 2023-01-13 03:07 ==
LOC: DI 02:47
PROVIDERS: PCP Family Medicine; Visit Provider Family Medicine
DX: E11.610 Type 2 diabetes mellitus with diabetic neuropathic arthropathy (principal); M19.072 Primary osteoarthritis, left ankle and foot
CPT/HCPCS: 73630

== ENCOUNTER 2023-05-20 10:19 | Outpatient (CLI) | payer MEDICARE, SELFPAY ==
[2023-05-20 12:32] LABS: Anion Gap 8.3 mmol/L (3-11); BUN 20 mg/dL (7-18); CO2 29.7 mmol/L (21.0-32.0); Calcium 9.8 mg/dL (8.5-10.1); Chloride 104 mmol/L (98-107); Estimated GFR 74.21 (mL/min/1.73m2); Glucose 111 mg/dL (74-106); Sodium 142 mmol/L (136-145)
== END 2023-05-20 10:20 | disposition home or self-care (01) ==
LOC: LOS 10:19
PROVIDERS: PCP Family Medicine; Referring Provider Family Medicine; Visit Provider Family Medicine
DX: E87.1 Hypo-osmolality and hyponatremia (principal)
CPT/HCPCS: 36415; 80048

== ENCOUNTER → 2023-06-08 11:24 | Outpatient (BNVA) | payer MEDICARE, SELFPAY | PROVIDERS: PCP Family Medicine; Referring Provider Family Medicine; Visit Provider Podiatrist | DX: B35.1 Tinea unguium (principal); L60.3 Nail dystrophy; E11.610 Type 2 diabetes mellitus with diabetic neuropathic arthropathy; M79.2 Neuralgia and neuritis, unspecified; M79.671 Pain in right foot; L84 Corns and callosities | CPT/HCPCS: 11055; 11721 ==

== ENCOUNTER → 2023-06-09 13:18 | Outpatient (BNVA) | payer MEDICARE, SELFPAY | PROVIDERS: PCP Family Medicine; Referring Provider Family Medicine; Visit Provider Nurse Practitioner Gerontology | DX: R31.0 Gross hematuria (principal); R35.0 Frequency of micturition | CPT/HCPCS: 51798; 99214 ==

== ENCOUNTER → 2023-07-21 12:55 | Outpatient (BNVA) | payer MEDICARE, SELFPAY | PROVIDERS: PCP Family Medicine; Visit Provider Nurse Practitioner Gerontology | DX: R31.0 Gross hematuria (principal); R35.0 Frequency of micturition; Z98.890 Other specified postprocedural states | CPT/HCPCS: 51798; 99213 ==

== ENCOUNTER → 2023-09-07 09:48 | Outpatient (BNVA) | payer MEDICARE, SELFPAY | PROVIDERS: PCP Family Medicine; Referring Provider Family Medicine; Visit Provider Surgery ==

== ENCOUNTER 2023-09-07 11:35 | Outpatient (CLI) | payer MEDICARE, SELFPAY ==
--- OUTSIDE RECORDS SUMMARY | 2023-09-07 11:43 | XMS_ITS | Continuity of Care Document ---
Author Name Unknown Organization [facility] Address [address] [place] [address] Care Team Providers Care Right Of Way Supervisor Name Role Phone LETTY TRUONG MD Primary Care Physician Encounter [facility] NBR [id number] Date(s): 08/13/23 - 08/13/23 [facility] [address], [place] [address] Encounter Diagnosis Change in bowel habits(Discharge Diagnosis) - 08/13/23 History of colectomy(Discharge Diagnosis) - 08/13/23 History of adenomatous polyp of colon(Discharge Diagnosis) - 08/13/23 Griffin esophagus(Discharge Diagnosis) - 08/13/23 Discharge Disposition: Home or Self Care Attending Physician: Chrissie Taylor APRN Referring Physician: LETTY TRUONG MD Allergies, Adverse Reactions, Alerts Substance Reaction Severity Status penicillin Severe Active aspirin Severe Active Adhesive Bandage Severe Active Functional Status 08/13/23 Other exposure to Infectious Disease Non e Medications chondroitin 0 Refill(s) Start Date: 08/13/23 Status: Ordered Eliquis 5 mg oral tablet TAKE ONE TABLET BY MOUTH TWICE A DAY Start Date: 08/13/23 Status: Ordered Fish Oil 1000 mg oral capsule 0 Refill(s) Start Date: 08/13/23 Status: Ordered glucosamine 1000 mg oral capsule 3,000 mg = 3 cap, Oral, Daily, with meals, # 60 cap, 0 Refill(s) Start Date: 08/13/23 Status: Ordered Myrbetriq 50 mg oral tablet, extended release TAKE ONE TABLET BY MOUTH EVERY DAY Start Date: 08/13/23 Status: Ordered omeprazole 40 mg oral delayed release capsule TAKE ONE CAPSULE BY MOUTH TWICE A DAY Start Date: 08/13/23 Status: Ordered rosuvastatin 10 mg oral tablet TAKE ONE TABLET BY MOUTH EVERY DAY Start Date: 08/13/23 Status: Ordered tamsulosin 0.4 mg oral capsule TAKE ONE CAPSULE BY MOUTH EVERY DAY Start Date: 08/13/23 Status: Ordered Vitamin C 500 mg oral tablet 500 mg = 1 tab, Oral, Daily, # 30 tab, 0 Refill(s) Start Date: 08/13/23 Status: Ordered Vitamin D3 2000 intl units oral capsule 50 mcg 1 cap, Oral, Daily, # 60 cap, 0 Refill(s) Start Date: 08/13/23 Status: Ordered Problem List Condition Confirmation Course Effective Dates Status H ealth Status Informant Change in bowel habits Confirmed Active Anxiety Confirmed Active Afib Confirmed Active Griffin esophagus Confirmed Active Basal cell carcinoma Confirmed Active Stroke Confirmed Active Diabetes mellitus Confirmed Active Hydrocele Confirmed Active Gross hematuria Confirmed Active History of adenomatous polyp of colon Confirmed Active History of colectomy Confirmed Active Hypertension Confirmed Active Chronic anticoagulation Confirmed Active Ventricular arrhythmia Confirmed Active Procedures Procedure Date Related Diagnosis Body Site Status Colonoscopy 07/09/19 Completed Sigmoidoscopy 02/23/17 Completed Radiofrequency ablation C ompleted Vital Signs Most recent to oldest [Reference Range]: 1 Temperature Temporal Artery [36-38 Deg C ] 35.9 Deg C *LOW* (08/13/23 10:06 AM) Apical Heart Rate [60-100 bpm] 116 bpm *HI* (08/13/23 10:06 AM) Blood Pressure [90-140/60-90 mmHg] 172/1 06mmHg *HI* (08/13/23 10:06 AM) Mean Arterial Pressure, Cuff [70-110 mmH g] 128 mmHg *>HHI* (08/13/23 10:06 AM) Weight 73.48 kg (08/13/23 10:06 AM) Weight Measured (lbs) 161.995 lb (08/13/23 10:06 AM) Weight Dosing 73.480 kg (08/13/23 10:06 AM) [place] Body Weight Calculated 75.3 kg (08/13/23 10:06 AM) Height 180.34 cm (08/13/23 10:06 AM) Height/Length Measured (inches) 71 inch (08/13/23 10:06 AM) BSA Measured 1.92 m2 (08/13/23 10:06 AM) Body Mass Index 22.59 kg/m2 (08/13/23 10:06 AM) Social History Social History Type Response Tobacco Never tobacco user T obacco Use:. Sex Physician Outpatient Note * Chrissie Taylor APRN: PERFORM Event Display: Office Clinic Note Physician Authored Date: [id number] DALE METCALF :1940 Age:83 years Sex:Male Visit Date:08/13/2023 Primary Care Physician: LETTY TRUONG MD Chief Complaint change in stool caliber History of Present Illness Patient is a 83-year-old male??here today at the request of Dr. Truong??for change in stool caliber. ??This is an initial consult.?? He has a history of similar symptoms??in 2019 at which time he was found to have??a villous adenoma with high grade dysplasia??that??resulted in??a??partial colectomy. ??He states a few months ago he started to develop constipation and started to use Colace. ??He began to use more more of it.?? First his stools are a thin in caliber and occur 5-6 times per day.?? Denies melena or hematochezia. ??His weight and appetite are stable. ??Denies any abdominal pain,??vomiting,??pyrosis or dyspepsia. ??Denies any dysphagia or globus sensation.?? He continues to take? ?Colace 100 mg daily. ??He takes omeprazole 40 mg daily??and has a history of Griffin's with high-grade dysplasia??which she was treated for [facility] with last EGD showing no signs of Griffin's esophagus. ?? Labs: 11/11/2022 CBC and metabolic panel normal. ?? EGD: 12/17/2016 at [facility].?? Report not available. 12/22/2018??at [facility]??showing signs of??candidiasis??and no evidence of Griffin's esophagus endoscopically or pathology.?? He denies any EGD since. ?? Colonoscopy: 07/10/2019 tubulovillous adenoma. 09/24/2016 polyps.?? Type unspecified. 01/06/2020??tubulovillous adenoma??with high-grade dysplasia. No further follow-up since. ?? He denies any family history of any gastrointestinal cancers or inflammatory bowel disease.?? States has had??nonbiological related relatives with??these disorders.? Accompanied today by his . Review of Systems General: Denies malaise or fatigue. HEENT: Denies globus sensation or dysphagia. Respiratory: Denies shortness of breath, cough, or wheeze. Cardiovascular: Denies chest pain, palpitations, lightheadedness, dizziness, syncope or peripheral edema. ?? Abdomen:??States change in bowel habits.?? Denies any abdominal pain, nausea or vomiting. ??Denies constipation, diarrhea, melena or hematochezia.?? Weight and appetite are stable. ??Denies pyrosis or dyspepsia. Skin: Denies rashes or lesions. Neurological: Denies any problems with gait or balance. ?? Physical Exam Vitals & Measurements T:??35.9?C ??(Temporal Artery)?? HR:??116??(Apical)?? BP:??172/106?? SpO2:??99%?? HT:??180.34??cm?? WT:??73.48??kg?? BMI:??22.59?? BSA:??1.92?? General: Well-nourished well-developed??male??in no acute distress. HEENT: Head is normocephalic, trachea midline, and no cervical lymphadenopathy. Respiratory: Respirations are even and unlabored. ??Lungs are clear to auscultation. Cardiovascular: Regular rate and rhythm with S1 and S2. Abdomen: Positive bowel sounds x4 quadrants, no masses, no guarding, no tenderness. ??No hepatosplenomegaly. ??Abdomen is soft. Skin: Warm, dry, and pink. Neurological: Alert and oriented x3, speech is clear and gait is steady. Psychological: Pleasant, calm and cooperative. Assessment/Plan 1.??Change in bowel habits??R19.4 Patient with recent change in bowel habits.?? He has a previous history of a high-grade villous adenoma??resulting in??partial colectomy.?? Recommend colonoscopy to assess for??neoplasm.?Will need??to obtain cardiac clearance from PCP??in regards to stopping Eliquis.?? Will consult with anesthesia??before scheduling to make sure he is an appropriate??surgical candidate??for here versus a tertiary center.?? Will see patient 2 weeks after colonoscopy to discuss findings and make further recommendations. 2.??History of colectomy??Z90.49 As above. 3.??History of adenomatous polyp of colon??Z86.010 As above. 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 Last EGD showed no signs of Griffin's esophagus.?? He has not been advised for any further follow-ups. ??Denies any??upper GI symptoms including dysphagia.?? Continue to monitor.?? He takes omeprazole 40 mg daily. Voice recognition software utilized which may result in minor yard cleaner error. Problem List/Past Medical History Ongoing Afib Anxiety Griffin esophagus Basal cell carcinoma Change in bowel habits Chronic anticoagulation Diabetes mellitus Gross hematuria History of adenomatous polyp of colon History of colectomy Hydrocele Hypertension Stroke Ventricular arrhythmia Historical No qualifying data Procedure/Surgical History ???Colonoscopy (07/10/2019)???Sigmoidoscopy (02/24/2017)???Radiofrequency ablation Medications chondroitin Eliquis 5 mg oral tablet Fish Oil 1000 mg oral capsule glucosamine 1000 mg oral capsule, 3000 mg= 3 cap, Oral, Daily Myrbetriq 50 mg oral tablet, extended release omeprazole 40 mg oral delayed release capsule rosuvastatin 10 mg oral tablet tamsulosin 0.4 mg oral capsule Vitamin C 500 mg oral tablet, 500 mg= 1 tab, Oral, Daily Vitamin D3 2000 intl units oral capsule, 50 mcg= 1 cap, Oral, Daily Allergies Adhesive Bandage aspirin penicillin Social History Alcohol Never Electronic Cigarette/Vaping Electronic Cigarette Use: Never. Substance Use Never Tobacco Never tobacco user Tobacco Use:. Family History Family history is negative Electronically Signed on 08/13/23 11:45 AM Chrissie Taylor APRN Patient Care team information Care Team Personnel Name: LETTY TRUONG MD Position: No Access Member Role: Primary Care Physician Address: Address: [address] [place] [id number] [facility]
[2023-09-07 12:08] LABS: Abs Immature Grans 0.01 10^3/uL (0.0-0.06); Absolute Basophil Count 0.03 10^3/uL (0.0-0.2); Absolute Eosinophil Count 0.04 10^3/uL (0.0-0.7); Absolute Lymphocyte Count 0.87 10^3/uL (1.2-3.4); Absolute Monocyte Count 0.54 10^3/uL (0.1-0.8); Absolute Neutrophil Count 4.49 10^3/uL (1.2-6.7); Basophils % 0.5; Eosinophils % 0.7; HCT 39.1 % (40.0-50.0); HGB 13.2 g/dL (13.5-17.5); Immature Grans % 0.2; Lymphocytes % 14.5; MCH 31.6 pg (27.0-33.0); MCHC 33.8 % (32.0-36.0); MCV 94 fL (80-95); MPV 10.2 fL (8.0-11.0); Neutrophils % 75.1; Platelet Count 209 10^3/uL (130-400); RBC 4.18 10^6/uL (4.36-5.78); RDW 12.9 % (11.8-14.1); RDW-SD 44.2 fL; WBC 5.98 10^3/uL (4.4-10.8)
[2023-09-07 12:35] LABS: ALT 24 U/L (16-63); AST 22 U/L (15-37); Albumin 3.9 g/dL (3.4-5.0); Alkaline Phosphatase 110 U/L (46-116); Anion Gap 6.4 mmol/L (3-11); BUN 17 mg/dL (7-18); Bilirubin, Total 0.8 mg/dL (0.2-1.0); CO2 28.6 mmol/L (21.0-32.0); Calcium 9.8 mg/dL (8.5-10.1); Chloride 105 mmol/L (98-107); Estimated GFR 74.21 (mL/min/1.73m2); Ferritin 25 ng/mL (26-388); Glucose 107 mg/dL (74-106); Potassium 3.7 mmol/L (3.5-5.1); Sodium 140 mmol/L (136-145)
== END 2023-09-07 11:36 | disposition home or self-care (01) ==
LOC: LBO 11:35
PROVIDERS: PCP Family Medicine; Visit Provider Surgery
DX: C43.9 Malignant melanoma of skin, unspecified (principal); E11.9 Type 2 diabetes mellitus without complications; I10 Essential (primary) hypertension; I63.9 Cerebral infarction, unspecified; K20.90 Esophagitis, unspecified without bleeding; K22.711 Barrett's esophagus with high grade dysplasia; N40.0 Benign prostatic hyperplasia without lower urinary tract symptoms; R19.5 Other fecal abnormalities; R31.0 Gross hematuria; Z79.01 Long term (current) use of anticoagulants; Z90.79 Acquired absence of other genital organ(s); Z98.890 Other specified postprocedural states
CPT/HCPCS: 36415; 80053; 99214; 82728; 85025

== ENCOUNTER → 2023-09-22 11:41 | Outpatient (BNVA) | payer MEDICARE, SELFPAY | PROVIDERS: PCP Family Medicine; Referring Provider Family Medicine; Visit Provider Podiatrist | DX: L60.3 Nail dystrophy; L84 Corns and callosities; E11.610 Type 2 diabetes mellitus with diabetic neuropathic arthropathy; M79.2 Neuralgia and neuritis, unspecified; M79.671 Pain in right foot; B35.1 Tinea unguium | CPT/HCPCS: 11055; 11721 ==

== ENCOUNTER 2023-09-22 12:28 | Emergency (ER) | payer MEDICARE, SELFPAY ==
--- NOTE | 2023-09-22 12:30 | DI.US_ITS ---
Exam(s) US LOWER EXTREMITY VENOUS RT EXAM: US LOWER EXTREMITY VENOUS RT CLINICAL HISTORY: Right calf pain TECHNIQUE: Grayscale, color, and doppler imaging of the deep venous system of the lower extremity w as performed. COMPARISON: US US LOWER EXTREMITY VENOUS RT from 09/26/2019 FINDINGS: There is no evidence of intraluminal thrombus and there is normal compression and augmentation demons trated within the common femoral vein, femoral vein, and popliteal vein. In the ipsilateral calf the interrogated veins also exhibit normal compression/ augmentation properti es. Incidentally noted is a fluid collection in the medial popliteal fossa measuring 2.5 x 1.0 x 1.8 cm. This is probably a Young cyst. IMPRESSION: 1. No evidence of DVT in the right lower extremity. Young cyst incidentally noted in the popliteal fossa. DATA REPOSITORY:
[2023-09-22 12:33] VITALS: BP 192/99; PULSE 85; RESP 16; TEMP 36.6; O2SAT 98
[2023-09-22 12:38] VITALS: BP 192/99; PULSE 85; RESP 16; TEMP 36.6; O2SAT 98
--- NOTE | 2023-09-22 13:30 | DI.RAD_ITS ---
Exam(s) XR KNEE RT 3V AP,LAT,BRUNO EXAM: XR KNEE RT 3V AP,LAT,BRUNO CLINICAL HISTORY: Right knee pain. TECHNIQUE: 2D digital imaging was performed. COMPARISON: No exams were available for comparison FINDINGS: Subtle linear lucency in the superior pole the patella noted. This may represent patellar fracture a t this level. Small joint effusion noted. There is moderate joint space narrowing in the medial com partment. No significant narrowing of the lateral compartment. Calcific densities are noted in the soft tissues of the calf IMPRESSION: Superior pole patella finding which may be a nondisplaced fracture at this level. Correlation with s ite of tenderness is recommended. Significant degenerative changes are noted in the medial compartment. DATA REPOSITORY: RADIATION DOSE DELIVERED:
--- NOTE | 2023-09-22 14:59 | W.ED.GENAD ---
HPI General Date/Time Provider Initiated Documentation: 09/22/23 12:31. HPI Narrative: MDM This is an overall very well-appearing normothermic and not tachycardic 83-year-old male with right lower extremity with redness swelling and warmth concerning for DVT versus cellulitis. No pain out of proportion to suggest necrotizing soft tissue infection. Right foot warm and well-perfused and patient has no history of diabetes so I am not suspicious for critical limb ischemia so I do not feel that the patient requires a CT angiogram with runoffs. No fluctuance to suggest abscess. No vesicular rash to suggest zoster. Patient is not a dialysis patient so doubt calciphylaxis. No bilateral swelling nor shortness of breath to suggest acute heart failure. Neurologically intact in the right lower extremity so my suspicion is very low for CVA. No knee erythema to suggest septic joint. Furthermore no history of IV drug use. No recent trauma to suggest fracture though the patient did complain of some chronic right knee pain. I obtained plain films of the patient's knee which were read as concerning for the possibility of a superior pole patellar fracture. I reviewed the patient's films with Dr. Reyes from orthopedics. Patient had no point tenderness overlying his patellar. As result I felt that the risks of immobilizations outweighed the benefits and my suspicion was exceedingly low for fracture. As result I did not complete a CT of the patient's right lower extremity. He was able to straight leg raise so I was not concerned for quadriceps tendon injury. No calf tenderness nor history of trauma so my suspicion is exceedingly low for Achilles tendon rupture but I did not complete a Maurice test. Patient did have a Bakers cyst about which I made him aware. Formal RLE duplex negative for DVT. I did not feel that this contributed to his symtpoms. I advised patient to take his cephalexin as directed and return to the emergency department if he developed fevers nausea vomiting if his redness begins expanding or if he has any other concerns. He understood his return indications and was discharged with empiric trial of expectant outpatient management. Chronic conditions affecting the care of the patient: Atrial fibrillation prior CVA History obtained from an outside historian: N/A External record review: N/A Medications: Cephalexin Social determinants of health affecting disposition: N/A Management discussed with: Dr. Reyes orthopedics Treatment/interventions considered: N/A Response to therapies provided: N/A HPI This is an 83-year-old male arrived to the emergency department following a podiatry visit which is toenails are being trimmed in the setting of right lower extremity warmth swelling and erythema. He has primarily had the warmth over his right lower extremity, anterior stauffer for the past day and a half. He says that it is gradually become more swollen over this period of time. He was referred by his contact person today. He denies any specific trauma to his leg. He has no history of diabetes tobacco ethanol or illicits. He denies nausea vomiting fevers chest pain shortness of breath. He is able to ambulate. He has no pain in his right foot. He has not noticed any numbness nor tingling in his right foot. He also notes that over the past several months he has had a right knee discomfort. He denies any specific trauma to his right knee. His right knee discomfort worsens when he bends deeply. Exam General: Well-appearing in no acute distress speaking in complete sentences. Head: Normocephalic, atraumatic. Eye: Extraocular eye movements intact. No conjunctival injection. No scleral icterus. Ear, nose, mouth, throat: Grossly normal inspection. Normal voice, handling secretions normally. Neck: Trachea midline. Cardiovascular: Well-perfused distal extremities. Respiratory: Nonlabored respiration. Gastrointestinal: Nondistended abdomen. Musculoskeletal: Right lower extremity: Distal tibia of the right lower extremity has warmth erythema to the distal third. No fluctuance. No pain out of proportion. No calf tenderness. Negative Homans' sign. Right foot warm well-perfused 2+ PT DP pulses. 5 out of 5 strength right foot dorsi and plantarflexion. Patient is able to straight leg raise on the right. He is full range of motion in his right knee. His right knee is not swollen nor erythematous. He had he has no patellar tenderness. No proximal quadriceps tenderness. No significant laxity in right knee on valgus nor varus stress testing. Negative anterior and posterior drawer tests. Skin: Normal for age and race, grossly normal temperature and turgor. No acute rash. Neurologic: Alert and appropriate, no apparent acute deficits. Psychiatric: Mood and manner are appropriate. Grooming and personal hygiene are appropriate. Related Data Home Medications Medication Instructions Recorded Confirmed glucosamine-chondroitin 500 mg-400 3 tab PO BID 01/25/1909/22/ mg tablet omega-3 fatty acids 1,000 mg 1,000 mg PO DAILY 04/14/21 09/22/23 capsule (Fish Oil Concentrate) cholecalciferol (vitamin D3) 50 1,000 unit PO DAILY 06/09/22 09/22/23 mcg (2,000 unit) tablet ascorbate calcium (vitamin C) 500 500 mg PO DAILY 09/07/22 09/22/23 mg tablet apixaban 5 mg tablet (Eliquis) 5 mg PO BID #180 tabs 11/07/22 09/22/23 loratadine 10 mg tablet 10 mg PO DAILY #30 tabs 11/19/22 09/22/23 diabetic shoes #1 ea 01/08/23 09/22/23 docusate sodium 100 mg capsule 200 mg (2 x 100 mg) PO BID #360 01/12/23 09/22/23 caps rosuvastatin 10 mg tablet (Crestor) 10 mg PO DAILY #90 tabs 02/23/23 09/22/23 omeprazole 40 mg capsule,delayed 40 mg PO BID #180 tab-caps 08/24/23 09/22/23 release tamsulosin 0.4 mg capsule (Flomax) 0.4 mg PO DAILY #90 caps 08/24/23 09/22/23 vibegron 75 mg tablet (Gemtesa) 75 mg PO DAILY #90 tabs 08/31/23 09/22/23 cephalexin 250 mg capsule 250 mg PO QID 5 days #20 caps 09/22/23 Previous Rx's Medication Instructions Recorded apixaban 5 mg tablet (Eliquis) 5 mg PO BID #180 tabs 11/07/22 loratadine 10 mg tablet 10 mg PO DAILY #30 tabs 11/19/22 diabetic shoes #1 ea 01/08/23 docusate sodium 100 mg capsule 200 mg (2 x 100 mg) PO BID #360 01/12/23 caps rosuvastatin 10 mg tablet (Crestor) 10 mg PO DAILY #90 tabs 02/23/23 omeprazole 40 mg capsule,delayed 40 mg PO BID #180 tab-caps 08/24/23 release tamsulosin 0.4 mg capsule (Flomax) 0.4 mg PO DAILY #90 caps 08/24/23 vibegron 75 mg tablet (Gemtesa) 75 mg PO DAILY #90 tabs 08/31/23 cephalexin 250 mg capsule 250 mg PO QID 5 days #20 caps 09/22/23 Allergies Allergy/AdvReac Type Severity Reaction Status Date / Time Penicillins Allergy Severe hives all Verified 09/22/23 12:37 over body tomato Allergy Intermediate red spots Verified 09/22/23 12:37 on trunk aspirin AdvReac Intermediate GI upset Verified 09/22/23 12:37 adhesive tape AdvReac Mild redness Verified 09/22/23 12:37 General Stated Complaint: Cellulitis PHYLICIA: 3 Course Vital Signs Vital signs: Vital Signs Temperature 36.6 C 09/22/23 12:33 Pulse 85 09/22/23 12:33 Respiratory Rate 16 09/22/23 12:33 Blood Pressure 192/99 H 09/22/23 12:33 Pulse Oximetry 98 09/22/23 12:33 Temperature 36.6 C 09/22/23 12:38 Pulse 85 09/22/23 12:38 Respiratory Rate 16 09/22/23 12:38 Respiratory Effort Normal, Non-Labored 09/22/23 12:38 Blood Pressure 192/99 H 09/22/23 12:38 Pulse Oximetry 98 09/22/23 12:38 Pain Level 5 09/22/23 12:38 Lab/Test Results Lab/Test Results: Laboratory Tests Range/Units 09/22/23 12:32 WBC Cancelled RBC Cancelled Hgb Cancelled Hct Cancelled MCV Cancelled MCH Cancelled MCHC Cancelled RDW Cancelled Plt Count Cancelled MPV Cancelled Immature Gran % Cancelled Neutrophils % Cancelled Band Neutrophils % Cancelled Lymphocytes % Cancelled Atypical Lymphs % Cancelled Monocytes % Cancelled Eosinophils % Cancelled Basophils % Cancelled Metamyelocytes % Cancelled Myelocytes % Cancelled Promyelocytes % Cancelled Other Cells % Cancelled Nucleated RBC % Cancelled Absolute Neutrophils Cancelled Absolute Lymphocytes Cancelled Absolute Monocytes Cancelled Absolute Eosinophils Cancelled Absolute Basophils Cancelled RBC Morphology Cancelled Polychromasia Cancelled Hypochromasia Cancelled Poikilocytosis Cancelled Basophilic Stippling Cancelled Anisocytosis Cancelled Microcytosis Cancelled Macrocytosis Cancelled Spherocytes Cancelled Tear Drop Cells Cancelled Ovalocytes Cancelled Stomatocytes Cancelled [place] Bodies Cancelled [place] Cells/Echinocytes Cancelled Acanthocytes (Spur) Cancelled Schistocytes Cancelled Sodium Cancelled Potassium Cancelled Chloride Cancelled Carbon Dioxide Cancelled Anion Gap Cancelled BUN Cancelled Creatinine Cancelled Est GFR (CKD-EPI 2020) Cancelled Glucose Cancelled Calcium Cancelled Medical Decision Making Quality:SDOH Health Related Social Needs: No Data to Display PFSH All Active Problems (Updated 09/22/23 @ 15:00 by Rubén Weber MD) Cellulitis of right leg without foot (Acute) Chronic iron deficiency anemia (Acute) Change in stool caliber (Acute) Onychomycosis (Acute) Pain in right foot (Acute) Callus of foot (Acute) Rash (Acute) Cyst of skin (Acute) Melanoma (Acute) Infected sebaceous cyst of skin (Acute) Corns and callosities (Acute) Nail dystrophy (Acute) Visit for wound check (Acute) BCC (basal cell carcinoma of skin) (Acute) 11/2021, face [facility] Derm Diabetes mellitus (Chronic) 10/2021- [id number],5% Atrial fibrillation (Chronic) 10/2021-recurrence, prior history of A. fib-flutter status post ablation remotely x2, asymptomatic as of 10/2021, plan on starting Eliquis Villous adenoma (Acute) 07/2019-large villous adenoma-identified on CT at [facility] is a large mass. 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 ARAUZ Peripheral neuralgia (Acute) idiopathic peripheral neuropathy of lower legs-diffuse Essential hypertension (Acute 06/26/13) Esophagitis (Acute 05/26/16) [facility] Griffin's esophagus with high grade dysplasia (Acute 06/09/16) BPH (benign prostatic hyperplasia) (Acute) Associated with urinary retention status post TURP Atrial flutter (Acute 12/01/13) ablation x 2 Anxiety (Acute 12/05/14) Medical History Sigmoidoscopy performed (~09/24/16) 02/24/17 Dr. Adan with Polypectomies Stroke (~12/2018) Atrial fibrillation Surgical History S/P TURP 2020- [facility] History of colonoscopy (~07/10/19) History of radiofrequency ablation procedure for cardiac arrhythmia Excision, Skin Mass sebaceous cyst Griffin's ablation [facility]-12/17/16 Social History Smoking/Tobacco Use Status: Never Smoking risk assessment performed?: Yes Alcohol Intake: former Drug use: Never Substance use type: does not use Housing: house Current gender identity: male Do you feel safe at home: Yes Do you feel safe in your relationship?: Yes Discharge Plan Disposition Patient Disposition: Home Discharge Details Clinical Impression: Cellulitis of right leg without foot Primary Care Provider: Pieter Truong ED Provider: Rubén Weber [place] Meds and New Rx's Prescriptions: New cephalexin 250 mg capsule 250 mg PO QID 5 Days Qty: 20 0RF Continued loratadine 10 mg tablet 10 mg PO DAILY Qty: 30 2RF (DME) diabetic shoes See Rx Instructions .Route .MEDSUPPLY Qty: 1 0RF Rx Instructions: As directed - see office visit glucosamine-chondroitin 500-400 mg tablet 3 tab PO BID omega-3 fatty acids [Fish Oil Concentrate] 1,000 mg capsule 1,000 mg PO DAILY ascorbate calcium (vitamin C) 500 mg tablet 500 mg PO DAILY omeprazole 40 mg capsule,delayed release(DR/EC) 40 mg PO BID Qty: 180 3RF cholecalciferol (vitamin D3) 50 mcg (2,000 unit) tablet 1,000 unit PO DAILY Eliquis 5 mg tablet 5 mg PO BID Qty: 180 3RF Hold Instructions: Resume on 08/01/22. docusate sodium 100 mg capsule 200 mg PO BID Qty: 360 3RF rosuvastatin [Crestor] 10 mg tablet 10 mg PO DAILY Qty: 90 3RF tamsulosin [Flomax] 0.4 mg capsule 0.4 mg PO DAILY Qty: 90 1RF Gemtesa 75 mg tablet 75 mg PO DAILY Qty: 90 3RF Rx Instructions: Use instead of Myrbetriq Discharge Instructions Instructions: Cellulitis (ED) Additional Instructions: You were seen in the emergency department for your leg swelling. The redness in your leg is concerning for the possibility of a skin infection for which you are receiving antibiotics which you should take as directed. As we discussed, if you develop any fevers cannot take antibiotics as result of any nausea or vomiting or if you have any concerns please return to the emergency department. Discharge Data Discharge Date/Time-TO BE ENTERED AT DEPARTURE: 09/22/23 15:29
[2023-09-22 15:24] VITALS: BP 145/75; PULSE 84; RESP 22; TEMP 37.4; O2SAT 98
== END 2023-09-22 15:29 | disposition home or self-care (01) ==
PROVIDERS: Emergency Provider Emergency Medicine; PCP Family Medicine
DX: L03.115 Cellulitis of right lower limb (principal); M71.21 Synovial cyst of popliteal space [Baker], right knee; M25.461 Effusion, right knee; I48.91 Unspecified atrial fibrillation; E11.9 Type 2 diabetes mellitus without complications; Z86.73 Personal history of transient ischemic attack (TIA), and cerebral infarction without residual deficits
CPT/HCPCS: 11055; 11721; 73562; 80048; 99284; 85025; 93971

== ENCOUNTER → 2023-09-28 02:45 | Outpatient (CLI) | payer MEDICARE, SELFPAY ==
--- NOTE | 2023-09-28 06:15 | DI.US_ITS ---
APPROVED REPORT EXAM: Comprehensive 2D, Doppler, and color-flow Echocardiogram Patient Location: Out-Patient [employer] Ski Assembler: Janessa Hadley RDCS (AE) Indications: Pre operative exam, A Fib, HTN, Elevated Cholesterol Other Information Study Quality: Adequate Conclusion Normal left ventricular wall thickness and chamber size. Ejection fraction is 55%. Wall motion is n ormal Normal right ventricular size and function Left atrium is borderline dilated. Normal right atrial size There is no structural or hemodynamically valvular disease Dilated ascending aorta measuring 4.45 cm Wall motion Left Ventricle The left ventricle is normal size. The left ventricular systolic function is normal. The left ventric ular ejection fraction is within the normal range. There is normal left ventricular wall thickness. T here is normal LV segmental wall motion. There is no ventricular septal defect visualized. LVEF is 55 %. Right Ventricle The right ventricle is normal size. The right ventricular systolic function is normal. Atria Left atrium is borderline dilated. The right atrium size is normal. The interatrial septum is intact with no evidence for an atrial septal defect. Aortic Valve The aortic valve is normal in structure. Aortic valve is trileaflet. There is no aortic valvular sten osis. No aortic regurgitation is present. Mitral Valve The mitral valve is normal in structure. No evidence of mitral valve stenosis. Trace mitral regurgita tion. Tricuspid Valve The tricuspid valve is normal in structure. There is no tricuspid valve stenosis. Trace to mild tricu spid regurgitation. The RVSP is 37.3 mmHg. Pulmonic Valve The pulmonary valve is normal in structure. There is no pulmonic valvular stenosis. Trace pulmonic re gurgitation. Great Vessels The aortic root is normal in size. The ascending aorta is moderately dilated. Aortic arch is normal i n caliber. IVC is normal in size and collapses >50% with inspiration. Pericardium Trace pericardial effusion. 2D Dimensions IVSD d PLAX 1.10 cm M: 0.6-1.2 Ao Root d 3.63 cm M: 3.1 - 3.7 LVPW d PLAX 1.10 cm M: 0.6 - 1.2 Ao Asc Diam d 4.45 cm M: 2.6 - 3.4 LVID d PLAX 4.20 cm M: 4.2 - 5.8 LVDs 3.04 cm M: 2.5 - 4.0 LV EF Teichholz 54.1 % FS 27.71 % LV EDV (Teich) 78.7 mL LV ESV (Teich) 36.1 mL M-Mode TAPSE 2.57 cm (M/F) >1.7 Auto EF LV EDV A4C 99.3 mL LV EDV A2C 107.2 mL LV EDV BP 104.0 mL LV ESV A4C 48.1 mL LV ESV A2C 50.2 mL LV ESV BP 50.3 mL LVEF(%) A4C 51.5 % LVEF(%) A2C 53.2 % LVEF(%) BP 51.6 % LV SV A4C 51.1 ml LV SV A2C 57.1 ml LV SV BP 53.7 ml LV CO A4C 4.4 L/min LV CO A2C 5.1 L/min LV CO BP 4.8 L/min HR A4C 86.75 BPM HR A2C 89.78 BPM LV EDV Index (BP) LV Strain Long Pk Overal Avg (s) 13.94 RV Strain Global Peak Long. Strain A4C 14.64 Global Peak Long. Strain A4C FW 17.45 LA Volume LA Length A4C 5.6 cm LA Length A2C 6.3 cm LA Area A4C s 19.97 cm2 LA Area A2C s 23.56 cm2 LA Vol A4C A-L 60.54 mL LA Vol A2C A-L 74.92 mL LA Vol Biplane A-L 71.4 mL LA Vol/BSA A4C A-L LA Vol/BSA A2C A-L LA Vol/BSA BP A-L 37.0 mL/m2 LA Vol A4C MOD 57.1 mL LA Vol A2C MOD 68.0 mL LA Vol BP MOD 66.0 mL RA Volume RA Area A4C 17.4 cm2 RA ESV A4C (A-L) 45.0mL RA Vol/BSA A4C A-L RA Length A4C 5.7 cm RA ESV A4C (MOD) 42.5mL LV Diastology MV E' medial 0.077 (>0.07 m/s) MV E Vmax 1.02 (0.4-1.3 m/s) MV E/E' MED 13.16 (<14) MV E' lateral 0.102 (>0.1 m/s) MV E/E' LAT 9.94 (<14) MV E' Average 0.090 m/s MV E/E'(average) 11.32 Aortic Valve AoV Vmax 1.22 m/s LVOT Vmax 0.78 m/s AoV Peak Grad 5.9 mmHg LVOT Peak Grad 2.4 mmHg AoV Area (Vmax) 2.20 cm2 LVOT VTI 0.149 m AoV VTI 0.266 m LVOT Mean Grad 1.4 mmHg AoV Mean Chau. 0.87 m/s LVOT SV 51.38 mL AoV Mean Grad 3.4 mmHg LVOT Diam s 2.05 cm AoV Area (VTI) 1.94 cm2 Velocity Ratio 0.64 Mitral Valve MV DT 198 (160-240 msec) Pulmonary Valve PV Vmax 0.90 (0.5-1.5 m/s) RVOT Vmax 0.74 m/s PV Peak Grad 3.3 mmHg RVOT Peak Gr. 2.2 mmHg PV Mean Chau 0.63 m/s RVOT VTI 0.168 m PV Mean Grad 1.9 mmHg RVOT Mean Gr. 1.3 mmHg Tricuspid Valve RA Pressure 3.00 mmHg TR Vmax 2.93 m/s TV S' 0.12 m/s TR Peak Grad 34.2 mmHg RVSP (TR) 37.3 mmHg
== END ==
PROVIDERS: PCP Family Medicine; Visit Provider Surgery
DX: I48.91 Unspecified atrial fibrillation (principal)
CPT/HCPCS: 93306

== ENCOUNTER 2023-10-19 07:11 | Day surgery (SDC) | payer MEDICARE, SELFPAY ==
--- NOTE | 2023-10-18 16:39 | W.PM.HP.N ---
Date of service: 10/19/23 Time of Service: 08:49 Assessment and Plan Assessment and plan (1) Villous adenoma: Status: Acute Assessment and plan: Plan: Colonoscopy w/ general & natural airway. The?patient will be scheduled by my office. The pt understands that they need to do a bowel prep and the importance of hydration during this.? The patient understands there is a theoretical risk of renal failure.? For healthy patients we use Gatorade/Miralax Prep.? ?For anyone with renal concerns- GoLytely will be used. Apixiban will need to be held. ? Patients in A. Fib do not need to be bridged with Lovenox or on CVA prophylaxis.? Informed consent is obtained for the procedural (explained in simple layman's terms that?the pt and/or family could understand) explaining risks vs benefits and alternatives to the procedure and consequences if we do not do the procedure and need/rational for the procedure. Risks include but are not limited to: bleeding, infection, perforation of colon.? This would necessitate emergency surgery to repair the damage w/ possible ostomy; and other associated complications w/ the required surgery. ? Also complications of anesthesia including aspiration, ND/CVA/, inability to complete the procedure. I discussed with the?patient would they could expect during the procedure, post procedure and recovery time and risks.? The patient understands that they need to have a ride home after the procedure.? The patient was given all this information in writing and expressed understanding. Generally Colonoscopy does not require antibiotics prophylaxis for this pt. (2) Change in stool caliber: Status: Acute (3) Anxiety: Status: Acute (4) Essential hypertension: Status: Acute (5) Atrial flutter: Status: Acute (6) Atrial fibrillation: Status: Chronic (7) Ascending aorta dilatation: Status: Acute (8) Chronic anticoagulation: Status: Acute (9) Diabetes mellitus: Status: Chronic Qualifiers: Diabetes mellitus complication detail: with neuropathic arthropathy Diabetes mellitus complication status: with diabetic arthropathy Diabetes mellitus nursing home insulin use: without nursing home use Diabetes mellitus type: type 2 Qualified Code(s): E11.610 - Type 2 diabetes mellitus with diabetic neuropathic arthropathy (10) Griffin's esophagus with high grade dysplasia: Status: Acute (11) Esophagitis: Status: Acute (12) BPH (benign prostatic hyperplasia): Status: Acute (13) Chronic iron deficiency anemia: Status: Acute (14) Melanoma: Status: Acute (15) CVA (cerebral vascular accident): Status: Chronic (16) Peripheral neuralgia: Status: Acute (17) Diarrhea: Status: Acute History of Present Illness Narrative: Patient is here today for colonoscopy for f/u sigmoid colon cancer.??? They completed a bowel prep with just a brownish residual effluent.? They not having any chest pain or shortness of breath, currently.? They are not experiencing any fever or chills.? They deny any productive cough or upper respiratory tract infection signs or symptoms.? They are not having abdominal pain, or nausea and vomiting.? They have not had any changes in medications, past medical history or past surgical history since previously being seen in the office. They have not had any accidents or have been in the ER since the clinic pre-operative evaluation. ??I reviewed the procedure with the patient today, including risks and benefits of the procedure, and what they could expect at home for recovery.? All questions are answered to the patient?s satisfaction today, and they are stable to proceed with the proposed procedure. RN: Pt here with his , Summer to discuss change in stool, concern of obstruction. Pt concerned with shape of stool, states it has gone from pencil shape to cow plop pt is well know to me. he had a lap LAR at [facility] [place] for a villous adenoma with high-grade dysplasia He has not had a CE since his sx. Pt has frequency of BM and having to wake up at night to have a bm. He has not noticed any blood in his stools or black tarry stools. He is not having any abdominal pain. Port sites are well-healed. No blood in stools. no pain. + gasey. no wt loss. 162# eating- good appetite. no pain /diff. no H/I. prilosec 40mg po BID. He takes 5 TUMs a day as a precaution for heartburn prophylaxis. He does not have active heartburn or indigestion He did have Griffin's esophagus with high-grade dysplasia and had a RFA ablation. He has not had follow-up endoscopy since this procedure. BPH+ and urinary frequency. Elliquis + for A fib. We should be able to hold this and not bridge. Stairs- no cp or sob, but knees hurt. He has not seen ortho for injections or PT. He refuses to do PT- doens't help me. never a smoker. no B al He is not had a echo or stress test since his surgery. He was referred down to GI at [place]. Per the patient he was scheduled to undergo a colonoscopy at [place] and then the hospital called him back and was told by anesthesia said he was too old for colonoscopy. They did not do any further cardiac evaluation. He had no problems with anesthesia with his surgery Review of Systems All systems reviewed & are unremarkable except as noted in HPI and below PFSH All Active Problems (Updated 10/18/23 @ 16:45 by Lucy Murguia DO) Diarrhea (Acute) Ascending aorta dilatation (Acute) 4.45 on echo 09/25 Cellulitis of right leg without foot (Acute) Chronic iron deficiency anemia (Acute) Change in stool caliber (Acute) Onychomycosis (Acute) Pain in right foot (Acute) Callus of foot (Acute) Rash (Acute) Cyst of skin (Acute) Melanoma (Acute) Infected sebaceous cyst of skin (Acute) Corns and callosities (Acute) Nail dystrophy (Acute) Visit for wound check (Acute) BCC (basal cell carcinoma of skin) (Acute) 11/2021, face [facility] D[facility] Diabetes mellitus (Chronic) 10/2021- [id number],5% Atrial fibrillation (Chronic) 10/2021-recurrence, prior history of A. fib-flutter status post ablation remotely x2, asymptomatic as of 10/2021, plan on starting Eliquis Villous adenoma (Acute) 07/2019-large villous adenoma-identified on CT at [facility] is a large mass. 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 ARAUZ Peripheral neuralgia (Acute) idiopathic peripheral neuropathy of lower legs-diffuse Essential hypertension (Acute 06/26/13) Esophagitis (Acute 05/26/16) [facility] Griffin's esophagus with high grade dysplasia (Acute 06/09/16) BPH (benign prostatic hyperplasia) (Acute) Associated with urinary retention status post TURP Atrial flutter (Acute 12/01/13) ablation x 2 Anxiety (Acute 12/05/14) Medical History Sigmoidoscopy performed (~09/24/16) 02/24/17 Dr. Adan with Polypectomies Stroke (~12/2018) 2019-Per pt states it was a small thing, followed up at [facility] Atrial fibrillation Surgical History S/P TURP 2019- [facility] History of colonoscopy (~07/10/19) History of radiofrequency ablation procedure for cardiac arrhythmia Excision, Skin Mass sebaceous cyst Griffin's ablation [facility]-12/17/16 Social History Smoking/Tobacco Use Status: Never Smoking risk assessment performed?: Yes Alcohol Intake: former Drug use: Never Substance use type: does not use Housing: house Current gender identity: male Do you feel safe at home: Yes Do you feel safe in your relationship?: Yes Meds Allergies and Home Medications Allergies Allergy/AdvReac Type Severity Reaction Status Date / Time Penicillins Allergy Severe hives all Verified 10/19/23 07:44 over body aspirin AdvReac Intermediate GI upset Verified 10/19/23 07:44 Home Medications Medication Instructions Recorded Confirmed Type glucosamine-chondroitin 500 mg-400 3 tab PO BID 01/25/19 10/19/23 History mg tablet omega-3 fatty acids 1,000 mg 1,000 mg PO DAILY 04/14/21 10/19/23 History capsule (Fish Oil Concentrate) cholecalciferol (vitamin D3) 50 1,000 unit PO DAILY 06/09/22 10/19/23 History mcg (2,000 unit) tablet ascorbate calcium (vitamin C) 500 500 mg PO DAILY 09/07/22 10/19/23 History mg tablet loratadine 10 mg tablet 10 mg PO DAILY #30 tabs 11/19/22 10/19/23 Rx diabetic shoes #1 ea 01/08/23 09/29/23 Rx docusate sodium 100 mg capsule 200 mg (2 x 100 mg) PO BID #360 01/12/23 10/19/23 Rx caps rosuvastatin 10 mg tablet (Crestor) 10 mg PO DAILY #90 tabs 02/23/23 10/19/23 Rx omeprazole 40 mg capsule,delayed 40 mg PO BID #180 tab-caps 08/24/23 10/19/23 Rx release vibegron 75 mg tablet (Gemtesa) 75 mg PO DAILY #90 tabs 08/31/23 10/19/23 Rx apixaban 5 mg tablet (Eliquis) 5 mg PO BID #180 tabs 09/29/23 10/15/23 Rx Exam Narrative Exam Narrative: PHYSICAL EXAM GENERAL APPEARANCE: Alert, healthy appearance, oriented, x 3,? in no acute distress HYDRATION: Well hydrated HEAD, EYES, EARS, NECK, THROAT: Head is normocephalic, pupils equal, round, reactive to light and accommodation, ocular movement intact, sclera clear and no jaundice. ?Dentition intact. LUNGS: normal respiration/normal chest excursion. ?Clear to auscultation bilaterally. ?No wheeze. ?HEART: A. fib- rate controlled EXTREMITY:? no leg swelling.? 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 Normal bowel sounds.? No hernias.? Time Spent Time spent with Patient: <40 minutes Time was spent: preparing to see the patient(eg.review tests), obtaining and/or reviewing separately otained hiistory, ordering medications,tests, procedures, referring, communicating with other health skin care specialist, indepentently interpreting results, counseling the patient and care coordination
--- NOTE | 2023-10-18 16:48 | PDOC.DSDIS_ITS ---
Date of service: 10/19/23 Time of Service: 09:20 Discharge Plan Disposition Patient Disposition: Home Condition: Good Discharge Details Reason For Visit: colon scope Attending Provider: Lucy Murguia Primary Care Provider: Pieter Truong Home Meds and New Rx's Prescriptions: No Action loratadine 10 mg tablet 10 mg PO DAILY Qty: 30 2RF (DME) diabetic shoes See Rx Instructions .Route .MEDSUPPLY Qty: 1 0RF Rx Instructions: As directed - see office visit glucosamine-chondroitin 500-400 mg tablet 3 tab PO BID omega-3 fatty acids [Fish Oil Concentrate] 1,000 mg capsule 1,000 mg PO DAILY ascorbate calcium (vitamin C) 500 mg tablet 500 mg PO DAILY omeprazole 40 mg capsule,delayed release(DR/EC) 40 mg PO BID Qty: 180 3RF Eliquis 5 mg tablet 5 mg PO BID Qty: 180 3RF Hold Instructions: Resume on 08/01/22. cholecalciferol (vitamin D3) 50 mcg (2,000 unit) tablet 1,000 unit PO DAILY docusate sodium 100 mg capsule 200 mg PO BID Qty: 360 3RF rosuvastatin [Crestor] 10 mg tablet 10 mg PO DAILY Qty: 90 3RF Gemtesa 75 mg tablet 75 mg PO DAILY Qty: 90 3RF Rx Instructions: Use instead of Myrbetriq Discharge Instructions Additional Instructions: DSU Colonoscopy Post- Op Instructions Instructions for Everyone who is given Anesthesia: For your safety, please do the following for the next twenty-four (24) hours: *Do Not operate a motor vehicle (car, truck, motorcycle, etc.) *Do Not drink alcoholic beverages or use any recreational drugs for the first 24 hours or while taking pain medications. The medications in your body may have a reaction that can be dangerous. *Do Not make any important decisions or sign any important papers. Findings: Normal. No sign of tumor recurrence Apixiban: Resume on 10/20/23 Follow up: need pelvic floor PT. referral made. 1. No lifting over 20 pounds or strenuous activity for the first 24 hours after your procedure. After 24 hours there are no restrictions on your activity but you may feel fatigued for a few days. 2. After you arrive home you may have a light meal and return to your normal diet as you can tolerate it without feeling sick to your stomach. 3. You may have a bloated, gaseous feeling in your belly (abdomen) after a colonoscopy. Passing gas and belching will help. Walking or lying down on your left side with your knees flexed may relieve the discomfort. Call the office at [phone] (Office) or [phone] (Hospital) right away if you notice any of the following: a.Vomiting of blood or ?coffee ground stools?. b.Rectal bleeding 1Tbsp, blood clots or continuous bleeding. c.Severe belly (abdominal) pain. d.A hard distended belly (abdomen) and an inability to pass gas. 4. Please don?t expect to have a normal BM (bowel movement) for 2-3 days after your procedure. 5. If there are questions regarding the findings of your procedure, please contact your doctor 6. If you are unable to contact your doctor with a problem, contact the hospital at [phone]. 7. Continue all your regular medications unless directed otherwise. I understand the above instructions and have no questions. Signature of Patient or Adult Escort Name of Responsible Adult Escort Signature of Nurse Date/Time Stand Alone Forms: Anesthesia Discharge Inst., Britney Whitehead (DSU) Activity:: see above Diet:: see above Discharge Orders Discharge Orders: Discharge Order (Routine); Ordered 10/19/23 Ordered By: Lucy Murguia DS: Diagnosis Discharge Diagnosis (1) Villous adenoma: Status: Acute Asessment and Plan: The patient is seen and examined after their colonoscopy.? The patient has been able to pass gas.? They are not having abdominal pain.? They have been able to tolerate liquids and a snack.? They do not have any nausea or vomiting.? They are not having any chest pain or shortness of breath.??? They are not having any rectal bleeding. Their vital signs have been stable-see nursing notes. We discussed findings during their colonoscopy, and any biopsies that were done/polyps that were removed. The patient will be sent a letter with any biopsy results, and when to repeat the colonoscopy.-see discharge instructions. Patient was given explicit instructions to follow-up regarding colonoscopy-refer to discharge instructions.? We reviewed resumption of medications. Patient verbalized understanding and discharged in stable and satisfactory con dition- See nursing notes. (2) Change in stool caliber: Status: Acute (3) Anxiety: Status: Acute (4) Essential hypertension: Status: Acute (5) Atrial flutter: Status: Acute (6) Atrial fibrillation: Status: Chronic (7) Ascending aorta dilatation: Status: Acute (8) Chronic anticoagulation: Status: Acute (9) Diabetes mellitus: Status: Chronic (10) Griffin's esophagus with high grade dysplasia: Status: Acute (11) Esophagitis: Status: Acute (12) BPH (benign prostatic hyperplasia): Status: Acute (13) Chronic iron deficiency anemia: Status: Acute (14) Melanoma: Status: Acute (15) CVA (cerebral vascular accident): Status: Chronic (16) Peripheral neuralgia: Status: Acute (17) Diarrhea: Status: Acute (18) Fecal incontinence: Status: Acute
--- NOTE | 2023-10-18 16:49 | W.COLOREPORT ---
Date of service: 10/19/23 Time of Service: 09:16 Colonoscopy Report Date of procedure: 10/19/23 Pre-op diagnosis general: change in bowel habits/anemia/hx of villous in sigmoid colo/Hx resection /i Post-op diagnosis procedure note: same (Also incontinence) Surgeon: Lucy Murguia Anesthesia Type: General:No Airway Estimated blood loss (mL): 1 Pathology: other Complications: None Disposition: same day Prep: Miralax/Dulcolax Retraction Time: 5 Procedure Description: After informed consent was obtained the patient was taken to the procedure room and placed in a left decubitous position. Monitors were applied and a time out was done. The patients name, date of , procedure, allergies to medications and metal in their body was reviewed. The patient was then sedated. Once sedated and comfortable a rectal exam was done. External exam: poor tone. Internal exam revealed a normal sphincter tone and no palpable masses. The scope was then introduced and retrofelexed. No internal hemorrhoids were identified. The scope was then advanced to the cecum w/ out difficulty. The sigmoid colon is quite enlarged. The TI and appendiceal orifice were identified. The colon is quite floppy and the scope loops in the sigmoid. He probably has some degree of overflow incontinence the scope was then slowly retracted over 5 minutes back into the rectum, because of concerns about anesthesia. There are no polyps, AVMs, or diverticula visualized today. The anastomosis is at 10 cm. It is widely patent. There is no signs of recurrent tumor or hemorrhage. Biopsies taken of the rectum. The scope was removed and the patient was woken up and taken back to Same day surgery in stable condition. The patient tolerated the procedure well and there were no immediate complications. Follow up: The patient does not require any further colonoscopies, unless they develop changes in bowel habits or other new gastrointestinal complaints. Thornton Bowel Prep Thornton Bowel Prep Right Colon: 2 Left Colon: 2 Transverse Colon: 2 Total Score: 6
[2023-10-19 07:36] VITALS: BP 155/85; PULSE 94; RESP 16; TEMP 36.3; O2SAT 97
[2023-10-19] MEDS: Lactated Ringers 1,000 ML 80 ML IV (07:55)
--- NOTE | 2023-10-19 08:17 | W.ANESPRE ---
General Info Date of Service Date Performed: 10/19/23 Height: 5 ft 11 in Weight: 73.8 kg Body Mass Index (BMI): 22.6 Surgical Procedure: Operation Date: 10/19/23 08:35 Proposed Procedure Side Surgeon kathy Murguia, DO Meds Allergies and Home Medications Allergies Allergy/AdvReac Type Severity Reaction Status Date / Time Penicillins Allergy Severe hives all Verified 10/19/23 07:44 over body aspirin AdvReac Intermediate GI upset Verified 10/19/23 07:44 Home Medication Medication Instructions Recorded glucosamine-chondroitin 500 mg-400 3 tab PO BID 01/25/19 mg tablet omega-3 fatty acids 1,000 mg 1,000 mg PO DAILY 04/14/21 capsule (Fish Oil Concentrate) cholecalciferol (vitamin D3) 50 1,000 unit PO DAILY 06/09/22 mcg (2,000 unit) tablet ascorbate calcium (vitamin C) 500 500 mg PO DAILY 09/07/22 mg tablet loratadine 10 mg tablet 10 mg PO DAILY #30 tabs 11/19/22 diabetic shoes #1 ea 01/08/23 docusate sodium 100 mg capsule 200 mg (2 x 100 mg) PO BID #360 01/12/23 caps rosuvastatin 10 mg tablet (Crestor) 10 mg PO DAILY #90 tabs 02/23/23 omeprazole 40 mg capsule,delayed 40 mg PO BID #180 tab-caps 08/24/23 release vibegron 75 mg tablet (Gemtesa) 75 mg PO DAILY #90 tabs 08/31/23 apixaban 5 mg tablet (Eliquis) 5 mg PO BID #180 tabs 09/29/23 Current Visit Medications: Current Medications Generic Name Dose Route Start Last Admin Trade Name Freq PRN Reason Stop Dose Admin Hyoscyamine Sulfate 0.125 mg 10/19/23 01:00 Hyoscyamine 0.125 Mg Sl/Oral/Chew SL 11/18/23 00:59 DIRECTED PRN Ringer's Solution 1,000 mls @ 80 mls/hr 10/19/23 06:00 10/19/23 07:55 IV 10/19/23 23:59 80 mls/hr INFUSION BALDOMERO Administration IV Miscellaneous Supplies 1 each 10/19/23 06:00 Iv Access IV 10/19/23 23:59 DIRECTED BALDOMERO Ondansetron HCl 4 mg 10/19/23 01:00 Ondansetron 4 Mg/2 Ml Vial IVP 11/18/23 00:59 Q4H PRN PRN Nausea / Vomiting Sodium Chloride 0 ml 10/19/23 06:00 Normal Saline Flush 10 Ml Syr IV 10/19/23 23:59 PRN PRN Sodium Chloride 0 ml 10/19/23 06:00 Normal Saline 10 Ml Vial IJ 10/19/23 23:59 DIRECTED PRN Sterile Water 0 ml 10/19/23 06:00 Water,Injection,Sterile 10 Ml Vial IJ 10/19/23 23:59 DIRECTED PRN PFSH Active Problems Active Problems: Problem Status Onset Code Diarrhea R19.7 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 Cellulitis of right leg without foot L03.115 Chronic iron deficiency anemia D50.9 Change in stool caliber R19.5 Onychomycosis B35.1 Pain in right foot M79.671 Callus of foot L84 Rash R21 Cyst of skin L72.9 Melanoma C43.9 Infected sebaceous cyst of skin L72.3, L08.9 Corns and callosities L84 Nail dystrophy L60.3 Visit for wound check Z51.89 BCC (basal cell carcinoma of skin) C44.91 Diabetes mellitus E11.9 Atrial fibrillation I48.91 Villous adenoma D48.9 Hydrocele N43.3 Gross hematuria R31.0 CVA (cerebral vascular accident) I63.9 Chronic anticoagulation Z79.01 Ventricular arrhythmia I49.9 Tubular adenoma 09/24/16 D36.9 Peripheral neuralgia M79.2 Essential hypertension 06/26/13 I10 Esophagitis 05/26/16 K20.9 Griffin's esophagus with high grade dysplasia 06/09/16 K22.711 BPH (benign prostatic hyperplasia) N40.0 Atrial flutter 12/01/13 I48.92 Anxiety 12/05/14 F41.9 Medical History Medical History Sigmoidoscopy performed (~09/24/16) 02/24/17 Dr. Adan with Polypectomies Stroke (~12/2018) 2019-Per pt states it was a small thing, followed up at [facility] Atrial fibrillation Medical History Comments:: Per pt. states he has had baseline congestion for 20 years Surgical History Surgical History S/P TURP 2020- [place] History of colonoscopy (~07/10/19) History of radiofrequency ablation procedure for cardiac arrhythmia Excision, Skin Mass sebaceous cyst Griffin's ablation [facility]-12/17/16 Tobacco Smoking/Tobacco Use Status: Never Passive smoking exposure: No Alcohol Alcohol Intake: former Substance Use Substance use: Never Substance use type: does not use Vital Signs and Lab Results Vital Signs Most Recent Vital Signs in EMR: Most Recent Vital Signs Temp Pulse Resp BP Pulse Ox 36.3 C L 94 H 16 155/85 H 97 10/19/23 07:36 10/19/23 07:36 10/19/23 07:36 10/19/23 07:36 10/19/23 07:36 Lab Results Blood Type / Crossmatch: No Data to Display Complete Blood Count: No Data to Display Complete Metabolic Panel: No Data to Display Liver Function Panel: No Data to Display Coagulation Panel: No Data to Display Cardiac Panel: No Data to Display Arterial Blood Gas: No Data to Display Venous Blood Gas: No Data to Display Pancreas Panel: No Data to Display Thyroid Panel: No Data to Display Infectious Disease: No Data to Display Blood Cultures: No Data to Display Toxicology Panel: No Data to Display Anesthesia Assessment and Plan Anesthesia History Personal History: No History of Anesthesia Complications Family History: No Family History of Anesthesia Complications Exercise Tolerance Exercise Tolerance: Metabolic Equivalents>4 Pertinent Negatives Pertinent Negatives: No Symptoms of GERD Cardiac & Pulmonary Exam Cardiac Exam: Normal S1/S2 Heart Sounds Pulmonary Exam: Clear Bilateral Breath Sounds Implantable Cardiac Device Does patient have a Pacemaker or an ICD?: No Airway Exam Known Difficult Airway: No Mallampati Class: 1 Mouth Opening: Normal (> 3cm) Thyromental Distance: Greater than 3 cm Neck Range of Motion: Full ROM Neck Circumference: Normal Teeth Condition: Normal Dentition ASA Classification ASA Score: ASA 3 Emergency Case?: No NPO Status NPO Status: NPO Clears >2 hours, Solids >8 hours Anesthesia Plan Resuscitation Status: Full Code Anesthesia Technique: General Anesthesia Airway Planned: Natural Airway Monitors Used: Standard Monitors
[2023-10-19 08:18] VITALS: BMI 22.6
--- NOTE | 2023-10-19 09:10 | BOWEL_PTH ---
PATIENT: Terence Rosario LOC: [facility] U#:[id number] AGE/SX: 83/M ROOM: RE10/19/[address]: Lucy Murguia : 1940 BED: DIS: 10/19/2023 SPEC #: [id number] RECD: 10/19/23 11:36 STATUS: LORI REQ #: [id number] DAVID: 10/19/23 09:[address]: Lucy Murguia DEPT: Surgical Specimen RECD BY: Micaela Agee ENTERED: 10/19/23 11:37 SP TYPE: Bowel OTHR DR: Pieter Truong MD Tissues: 1 - BIOPSY BOWEL Procedures: GROSS AND MICRO LEVEL 4 Comments: [id number]
[2023-10-19 09:19] VITALS: BP 141/96; PULSE 77; RESP 16; TEMP 36.4; O2SAT 97
--- NOTE | 2023-10-19 09:25 | W.ANESPOSTOP ---
Postoperative Evaluation Date, Time and Location Date Performed: 10/19/23 Time Performed: : Patient Location: Day Surgery Unit Vital Signs Most Recent Imported Vital Signs: Most Recent Vital Signs Temp Pulse Resp BP Pulse Ox 36.4 C L 77 16 141/96 H 97 10/19/23 09:19 10/19/23 09:19 10/19/23 09:19 10/19/23 09:19 10/19/23 09:19 Pain Score Most Recent Pain Score: Most Recent Pain Score Pain Level 0 10/19/23 09:19 Assessment Mental Status: Awake (Alert & Oriented to Patient Baseline) Airway and Respiratory Function: Patent airway with normal (patient baseline) respiratory exam Cardiovascular Function: Hemodynamically Stable Hydration Status: Adequately Hydrated Nausea & Vomiting: No Nausea or Vomiting Pain: Pt. Denies Any Pain Peripheral Nerve Block: Patient did not receive a nerve block
[2023-10-19 09:53] VITALS: BP 159/92; PULSE 82; RESP 16; TEMP 36.3; O2SAT 97
== END 2023-10-19 10:14 | disposition home or self-care (01) ==
LOC: SUR 07:12
PROVIDERS: PCP Family Medicine; Visit Provider Surgery
PROC: 0DJD8ZZ Inspection of Lower Intestinal Tract, Via Natural or Artificial Opening Endoscopic (ICD-10-PCS; CPT 45378; principal; 2023-10-19 08:30)
DX: R15.9 Full incontinence of feces; D50.9 Iron deficiency anemia, unspecified; I77.810 Thoracic aortic ectasia; I10 Essential (primary) hypertension; E11.610 Type 2 diabetes mellitus with diabetic neuropathic arthropathy; Z79.01 Long term (current) use of anticoagulants; R19.7 Diarrhea, unspecified; Z85.038 Personal history of other malignant neoplasm of large intestine; K63.89 Other specified diseases of intestine
CPT/HCPCS: 45380; 88305; J2001; J2704

== ENCOUNTER → 2023-12-16 10:28 | Outpatient (BNVA) | payer MEDICARE, SELFPAY | PROVIDERS: PCP Family Medicine; Visit Provider Nurse Practitioner Gerontology | DX: R35.0 Frequency of micturition (principal) | CPT/HCPCS: 51798; 99213 ==

== ENCOUNTER → 2023-12-22 11:14 | Outpatient (BNVA) | payer MEDICARE, SELFPAY | PROVIDERS: PCP Family Medicine; Referring Provider Family Medicine; Visit Provider Podiatrist | DX: L97.521 Non-pressure chronic ulcer of other part of left foot limited to breakdown of skin (principal); L60.3 Nail dystrophy; L84 Corns and callosities; E11.610 Type 2 diabetes mellitus with diabetic neuropathic arthropathy; M79.2 Neuralgia and neuritis, unspecified; M79.671 Pain in right foot; B35.1 Tinea unguium; R09.89 Other specified symptoms and signs involving the circulatory and respiratory systems; L65.9 Nonscarring hair loss, unspecified; R20.8 Other disturbances of skin sensation; R23.8 Other skin changes; L60.8 Other nail disorders; R60.0 Localized edema; L53.8 Other specified erythematous conditions | CPT/HCPCS: 11719; 11720; 11721 ==

== ENCOUNTER → 2024-01-12 10:57 | Outpatient (BNVA) | payer MEDICARE, SELFPAY | PROVIDERS: PCP Family Medicine; Referring Provider Family Medicine; Visit Provider Podiatrist | DX: L97.521 Non-pressure chronic ulcer of other part of left foot limited to breakdown of skin; L60.3 Nail dystrophy; L84 Corns and callosities; E11.610 Type 2 diabetes mellitus with diabetic neuropathic arthropathy; M79.2 Neuralgia and neuritis, unspecified; M79.671 Pain in right foot; B35.1 Tinea unguium | CPT/HCPCS: 97597 ==

== ENCOUNTER → 2024-02-01 14:02 | Outpatient (BNVA) | payer MEDICARE, SELFPAY | PROVIDERS: PCP Family Medicine; Visit Provider Nurse Practitioner Gerontology | DX: R35.0 Frequency of micturition (principal) | CPT/HCPCS: 51798; 99213 ==

== ENCOUNTER → 2024-02-02 13:45 | Outpatient (BNVA) | payer MEDICARE, SELFPAY | PROVIDERS: PCP Family Medicine; Referring Provider Family Medicine; Visit Provider Podiatrist | DX: L97.521 Non-pressure chronic ulcer of other part of left foot limited to breakdown of skin (principal); L60.3 Nail dystrophy; L84 Corns and callosities; E11.610 Type 2 diabetes mellitus with diabetic neuropathic arthropathy; M79.2 Neuralgia and neuritis, unspecified; M79.671 Pain in right foot; B35.1 Tinea unguium | CPT/HCPCS: 99213 ==

== ENCOUNTER → 2024-03-01 14:31 | Outpatient (BNVA) | payer MEDICARE, SELFPAY | PROVIDERS: PCP Family Medicine; Referring Provider Family Medicine; Visit Provider Podiatrist | DX: L97.521 Non-pressure chronic ulcer of other part of left foot limited to breakdown of skin (principal); L60.3 Nail dystrophy; L84 Corns and callosities; E11.610 Type 2 diabetes mellitus with diabetic neuropathic arthropathy; M79.2 Neuralgia and neuritis, unspecified; M79.671 Pain in right foot; B35.1 Tinea unguium | CPT/HCPCS: 11055 ==

== ENCOUNTER 2024-03-23 12:48 | Emergency (ER) | payer MEDICARE, SELFPAY ==
[2024-03-23] VITALS (45 sets, daily range): BP systolic 122–193; BP diastolic 53–110; PULSE 48–100; RESP 10–27; TEMP 36.6–36.8; O2SAT 93–98
--- NOTE | 2024-03-23 12:45 | RT.EKG_ITS ---
APPROVED REPORT Exam: Resting ECG Reason for Exam: Weakness Patient Location: E HR:74 bpm ECG Measurements Heart Rate 74 AXIS KS [id number] P [id number] QRSd 88 QRS -33 QT 385 T 64 QTc 429 Conclusion Atrial fibrillation. 74 no stemi
--- NOTE | 2024-03-23 13:30 | DI.CT_ITS ---
Exam(s) CT HEAD WO EXAM: CT HEAD WO CLINICAL HISTORY: ams. TECHNIQUE: Imaging Protocol: Axial computed tomography images with coronal and sagittal reformatted images were created and reviewed COMPARISON: CT CT HEAD WO from 01/27/[address] ABDOMEN PELVIS WO/W from 06/20/2019 FINDINGS: There is artifact from the patient's dental work. Ventricles and Extra axial spaces: Normal in size and morphology for the patient's age. Hemorrhage: Subarachnoid hemorrhage is seen in the right parietal lobe. Cerebral parenchyma: There is a 1.3 x 1.7 cm intraparenchymal hyperdense focus in the right parietal lobe. There is adjacent subarachnoid hemorrhage. There is surrounding edema present. There is no m idline shift. There is mild mass effect on the adjacent sulci. Midline shift: None. Brainstem/Cerebellum: Normal. Calvarium: Normal. Visualized Paranasal sinuses/Mastoids: Mucosal thickening in the visualized paranasal sinuses. No ai r-fluid levels are seen. The mastoid air cells are clear. Soft Tissues: Unremarkable. IMPRESSION: 1. 1.3 x 1.7 cm hyperdense focus in the right parietal lobe. Intraparenchymal hemorrhage versus hemo rrhagic mass/metastasis. There is surrounding edema with a mass effect on the adjacent sulci. No mi dline shift. 2. Smaller out of subarachnoid hemorrhage in the right parietal lobe. 3. MRI of the brain without and with contrast is recommended for further evaluation. 4. Findings were discussed with Dr. Castillo at 2:41 p.m. on 03/23/2024. RADIATION DOSE DELIVERED: Total DLP DATA REPOSITORY: All CT scans at this facility are submitted to the National Radiology Data Registry (NRDR) Dose Index Registry (DIR) with the [employer] (ACR). RADIATION OPTIMIZATION: All CT scans at this facility use at least one of these dose optimization te chniques: automated exposure control; mA and/or kV adjustment per patient size (includes targeted exa ms where dose is matched to clinical indication); or iterative reconstruction.
[2024-03-23 13:41] LABS: Abs Immature Grans 0.02 10^3/uL (0.0-0.06); Absolute Basophil Count 0.04 10^3/uL (0.0-0.2); Absolute Eosinophil Count 0.05 10^3/uL (0.0-0.7); Absolute Lymphocyte Count 1.23 10^3/uL (1.2-3.4); Absolute Monocyte Count 0.51 10^3/uL (0.1-0.8); Absolute Neutrophil Count 4.58 10^3/uL (1.2-6.7); Basophils % 0.6 %; Eosinophils % 0.8 %; HCT 39.8 % (40.0-50.0); HGB 13.1 g/dL (13.5-17.5); Immature Grans % 0.3 %; Lymphocytes % 19.1 %; MCH 31.5 pg (27.0-33.0); MCHC 32.9 % (32.0-36.0); MCV 96 fL (80-95); Monocytes % 7.9 %; Neutrophils % 71.3 %; Platelet Count 196 10^3/uL (130-400); RBC 4.16 10^6/uL (4.36-5.78); RDW 13.2 % (11.8-14.1); RDW-SD 46.5 fL; WBC 6.43 10^3/uL (4.4-10.8)
[2024-03-23 13:54] LABS: INR 1.3 (0.9-1.1); PTT Activated 27.5 sec (23.6-32.8); Prothrombin Time 12.5 sec (9.1-11.1)
[2024-03-23 13:55] LABS: ALT 22 U/L (16-63); AST 21 U/L (15-37); Albumin 3.9 g/dL (3.4-5.0); Alkaline Phosphatase 122 U/L (46-116); Anion Gap 9.5 mmol/L (3-11); BUN 16 mg/dL (7-18); Bilirubin, Total 0.57 mg/dL (0.2-1.0); CO2 28.5 mmol/L (21.0-32.0); Calcium 9.7 mg/dL (8.5-10.1); Chloride 101 mmol/L (98-107); Estimated GFR 73.76 (mL/min/1.73m2); Glucose 148 mg/dL (74-106); Potassium 3.9 mmol/L (3.5-5.1); Sodium 139 mmol/L (136-145); Total Protein 7.9 g/dL (6.4-8.2)
[2024-03-23] MEDS: niCARdipine 25 MG in Normal Saline 240 ML IV (14:56)
[2024-03-23] MEDS: HUMAN PROTHROM. CMPX. 2,000 UNIT in EMPTY EVACUATED CONTAINER 1 EACH 360 UNIT IV (15:29)
--- NOTE | 2024-03-23 15:56 | ED.GENADUL_ITS ---
Discharge Plan Disposition Patient Disposition: Transfer-Acute Inpatient Care Specific Acute Inpt Facility: [facility] Condition: Serious Discharge Details Clinical Impression: Intraparenchymal hemorrhage of brain, AMS (altered mental status), Speech abnormality, Hypertension Primary Care Provider: Pieter Truong ED Provider: German Brown Home Meds and New Rx's Prescriptions: No Action (DME) diabetic shoes See Rx Instructions .Route .MEDSUPPLY Qty: 1 0RF Rx Instructions: As directed - see office visit diphenoxylate-atropine [Lomotil] 2.5-0.025 mg tablet 1 tab PO BID PRN (Reason: diarrhea) Qty: 60 0RF glucosamine-chondroitin 500-400 mg tablet 3 tab PO BID omega-3 fatty acids [Fish Oil Concentrate] 1,000 mg capsule 1,000 mg PO DAILY ascorbate calcium (vitamin C) 500 mg tablet 500 mg PO DAILY omeprazole 40 mg capsule,delayed release(DR/EC) 40 mg PO BID Qty: 180 3RF Eliquis 5 mg tablet 5 mg PO BID Qty: 180 3RF cholecalciferol (vitamin D3) 50 mcg (2,000 unit) tablet 1,000 unit PO DAILY Gemtesa 75 mg tablet 75 mg PO DAILY Qty: 90 3RF Rx Instructions: Use instead of Myrbetriq rosuvastatin 10 mg tablet 10 mg PO DAILY Qty: 90 3RF doxazosin 1 mg tablet 2 mg PO DAILY Qty: 180 0RF docusate sodium 100 mg capsule 200 mg PO BID Qty: 360 3RF HPI General Date/Time Provider Initiated Documentation: 03/23/24 13:12 . Limitations to Documentation: physical limitation . Information obtained by: patient and family . HPI Narrative: 84-year-old gentleman with past medical history of villous adenoma, diabetes, A- fib on Eliquis, prior CVA presents for evaluation of speech change and drooling. Last known normal was Wednesday evening before going to bed. reports that when he woke up yesterday morning she noted that his speech sounds different. She reports that it sounds like he has got cotton in his mouth. She also noted that he was drooling. This drooling is new for the patient. He did have this prior stroke with some left-sided deficits. Related Data Home Medications ?Medication ?Instructions ?Recorded ?Confirmed glucosamine-chondroitin 500 mg-400 3 tab PO BID 01/25/19 03/23/24 mg tablet omega-3 fatty acids 1,000 mg 1,000 mg PO DAILY 04/14/21 03/23/24 capsule (Fish Oil Concentrate) cholecalciferol (vitamin D3) 50 1,000 unit PO DAILY 06/09/22 03/23/24 mcg (2,000 unit) tablet ascorbate calcium (vitamin C) 500 500 mg PO DAILY 09/07/22 03/23/24 mg tablet diabetic shoes #1 ea 01/08/23 03/23/24 omeprazole 40 mg capsule,delayed 40 mg PO BID #180 tab-caps 08/24/23 03/23/24 release vibegron 75 mg tablet (Gemtesa) 75 mg PO DAILY #90 tabs 08/31/23 03/23/24 apixaban 5 mg tablet (Eliquis) 5 mg PO BID #180 tabs 09/29/23 03/23/24 diphenoxylate-atropine 2.5 1 tab PO BID PRN diarrhea #60 tabs 11/10/23 03/23/24 mg-0.025 mg tablet (Lomotil) rosuvastatin 10 mg tablet 10 mg PO DAILY #90 tabs 02/19/24 03/23/24 doxazosin 1 mg tablet 2 mg (2 x 1 mg) PO DAILY #180 tabs 03/07/24 03/23/24 docusate sodium 100 mg capsule 200 mg (2 x 100 mg) PO BID #360 03/20/24 03/23/24 caps Previous Rx's ?Medication ?Instructions ?Recorded diabetic shoes #1 ea 01/08/23 omeprazole 40 mg capsule,delayed 40 mg PO BID #180 tab-caps 08/24/23 release vibegron 75 mg tablet (Gemtesa) 75 mg PO DAILY #90 tabs 08/31/23 apixaban 5 mg tablet (Eliquis) 5 mg PO BID #180 tabs 09/29/23 diphenoxylate-atropine 2.5 1 tab PO BID PRN diarrhea #60 tabs 11/10/23 mg-0.025 mg tablet (Lomotil) rosuvastatin 10 mg tablet 10 mg PO DAILY #90 tabs 02/19/24 doxazosin 1 mg tablet 2 mg (2 x 1 mg) PO DAILY #180 tabs 03/07/24 docusate sodium 100 mg capsule 200 mg (2 x 100 mg) PO BID #360 03/20/24 caps Allergies Allergy/AdvReac Type Severity Reaction Status Date / Time Penicillins Allergy Severe hives all Verified 03/23/24 12:58 over body aspirin AdvReac Intermediate GI upset Verified 03/23/24 12:58 General Stated Complaint: GenMedical PHYLICIA: 3 Exam Narrative Exam Narrative: Review of Systems: All systems reviewed & are unremarkable except as noted in HPI and below Well-developed, no acute distress NCAT PERRL, normal conjunctiva A-fib Unlabored respiratory effort cear bilaterally Nondistended abdomen , soft nontender l Left facial droop mild noted, moving all extremities equally, no focal weakness appreciated Speech is difficult to understand, he is alert laying with his eyes closed, will open them with talking, states that this is his baseline Course Vital Signs Vital signs: Vital Signs Temperature 36.8 C 03/23/24 12:50 Pulse 92 H 03/23/24 12:50 Respiratory Rate 16 03/23/24 12:50 Blood Pressure 171/96 H 03/23/24 12:50 Pulse Oximetry 95 03/23/24 12:50 Temperature 36.6 C 03/23/24 15:31 Temperature Source Temporal Artery Scan 03/23/24 15:31 Pulse 73 03/23/24 15:46 Pulse Rhythm Irregular 03/23/24 15:31 Pulse Strength Normal 03/23/24 15:31 Pulse 83 03/23/24 15:46 Respiratory Rate 17 03/23/24 15:46 Respiratory Effort Normal 03/23/24 15:31 Respiratory Depth Normal 03/23/24 15:31 Respiratory Pattern Normal 03/23/24 15:31 Blood Pressure 136/60 03/23/24 15:46 Blood Pressure Mean 82 03/23/24 15:46 Blood Pressure Position Sitting 03/23/24 12:50 Pulse Oximetry 95 03/23/24 15:46 Oxygen Delivery Method Room Air 03/23/24 15:31 Oxygen Flow Rate 0 03/23/24 15:31 Pain Level 0 03/23/24 12:50 Lab/Test Results Lab/Test Results: Laboratory Tests Range/Units 03/23/24 13:15 WBC (4.4-10.8) 10^3/uL 6.43 RBC (4.36-5.78) 10^6/uL 4.16 L Hgb (13.5-17.5) g/dL 13.1 L Hct (40.0-50.0) % 39.8 L MCV (80-95) fL 96 H MCH (27.0-33.0) pg 31.5 MCHC (32.0-36.0) % 32.9 RDW (11.8-14.1) % 13.2 Plt Count (130-400) 10^3/uL 196 MPV (8.0-11.0) fL 10.0 Immature Gran % % 0.3 Neutrophils % % 71.3 Lymphocytes % % 19.1 Monocytes % % 7.9 Eosinophils % % 0.8 Basophils % % 0.6 Nucleated RBC % (0.0-0.3) % 0.0 Absolute Neutrophils (1.2-6.7) 10^3/uL 4.58 Absolute Lymphocytes (1.2-3.4) 10^3/uL 1.23 Absolute Monocytes (0.1-0.8) 10^3/uL 0.51 Absolute Eosinophils (0.0-0.7) 10^3/uL 0.05 Absolute Basophils (0.0-0.2) 10^3/uL 0.04 PT (9.1-11.1) sec 12.5 H INR (0.9-1.1) 1.3 H APTT (23.6-32.8) sec 27.5 Sodium (136-145) mmol/L 139 Potassium (3.5-5.1) mmol/L 3.9 Chloride (98-107) mmol/L 101 Carbon Dioxide (21.0-32.0) mmol/L 28.5 Anion Gap (3-11) mmol/L 9.5 BUN (7-18) mg/dL 16 Creatinine (0.70-1.30) mg/dL 1.0 Est GFR (CKD-EPI 2020) (mL/min/1.73m2) 73.76 Glucose (74-106) mg/dL 148 H Calcium (8.5-10.1) mg/dL 9.7 Total Bilirubin (0.2-1.0) mg/dL 0.57 AST (15-37) U/L 21 ALT (16-63) U/L 22 Alkaline Phosphatase (46-116) U/L 122 H Total Protein (6.4-8.2) g/dL 7.9 Albumin (3.4-5.0) g/dL 3.9 Medical Decision Making Emergent evaluation of speech changes. The patient does appear to have a speech deficit on physical exam, there is some left-sided deficits, but the reports these are from prior CVA. He is noted to be very hypertensive. Does not have a history of hypertension and is not currently medicated for such. He is not drooling, and is protecting his airway there will there is some noted abnormality. The initial differential includes hypertensive emergency, CVA, TIA. Given his difficulty with swallowing and speech, have a high suspicion for CVA. Patient will be sent emergently Gutierrez for CT scan though he is out of the window for any tPA administration. 1420 CT head reviewed. Intracranial bleeding noted. No shift appreciated. The patient's persistent hypertension is of more significant concern now and a Cardene drip will be started. Imaging has been pushed to [facility] and I have reached out for neurosurgical transfer. Given that he is on Eliquis, reversal has been ordered 1630 Discussed with neurosurgery at [facility], they have accepted him for transfer for. They do recommend a Keppra load. They are determining whether he will go ED to ED or get admitted to the neuro ICU. If the patient is still in the emergency department here, they do want a repeat 4-hour CT scan. 1710 Neurosurgery recommending ED ED transfer, Dr Bonilla accepting. Quality:SDOH Health Related Social Needs: No Data to Display Critical Care Time Critical Care Time Critical Care Time: Yes Attestation: CRITICAL CARE Upon my evaluation, this patient had a high probability of imminent or life- threatening deterioration due to CVA which required my direct attention, intervention, and personal management. I have personally provided 40 minutes of critical care time exclusive of time spent on separately billable procedures. Time includes review of laboratory data, radiology results, discussion with consultants, and monitoring for potential decompensation. Interventions were performed as documented above [facility] All Active Problems (Updated 03/23/24 @ 16:34 by Remi Castillo MD) Hypertension (Chronic) Speech abnormality (Acute) AMS (altered mental status) (Acute) Intraparenchymal hemorrhage of brain (Acute) Seborrheic keratoses, inflamed (Acute) Right leg swelling (Acute) Ulcer of left foot, limited to breakdown of skin (Acute) Fecal incontinence (Acute) Ascending aorta dilatation (Acute) 4.45 on echo 09/25 Chronic iron deficiency anemia (Acute) Change in stool caliber (Acute) Onychomycosis (Acute) Pain in right foot (Acute) Callus of foot (Acute) Rash (Acute) Cyst of skin (Acute) Melanoma (Acute) Infected sebaceous cyst of skin (Acute) Corns and callosities (Acute) Nail dystrophy (Acute) Visit for wound check (Acute) BCC (basal cell carcinoma of skin) (Acute) [place]2021, [place] [facility] [place] Diabetes mellitus (Chronic) 10/2021- [id number],5% Atrial fibrillation (Chronic) 10/2021-recurrence, prior history of A. fib-flutter status post ablation remotely x2, asymptomatic as of 10/2021, plan on starting Eliquis Villous adenoma (Acute) 07/2019-large villous adenoma-identified on CT at [facility] is a large mass. Confirm a colonoscopy Removed by general surgery with partial sigmoid resection at [facility]-benign villous adenoma Hydrocele (Acute) Gross hematuria (Acute) CVA (cerebral vascular accident) (Chronic) 12/2018-Right thalamic. Sensory only Chronic anticoagulation (Acute) Ventricular arrhythmia (Acute) Tubular adenoma (Acute 09/24/16) 13cm tubulovillous adenoma removed 06/17 Ananda 02/24/17 DR. ARAUZ Peripheral neuralgia (Acute) idiopathic peripheral neuropathy of lower legs-diffuse Essential hypertension (Acute 06/26/13) Esophagitis (Acute 05/26/16) [facility] Griffin's esophagus with high grade dysplasia (Acute 06/09/16) BPH (benign prostatic hyperplasia) (Acute) Associated with urinary retention status post TURP Atrial flutter (Acute 12/01/13) ablation x 2 Anxiety (Acute 12/05/14) Medical History Sigmoidoscopy performed (~09/24/16) 02/24/17 Dr. Adan with Polypectomies Stroke (~12/2018) 2019-Per pt states it was a small thing, [place] [facility] [place]rial fibrillation Surgical History S/P laparoscopic-assisted sigmoidectomy S/P TURP 2019- [facility] History of colonoscopy (~10/2023) path sent History of radiofrequency ablation procedure for cardiac arrhythmia Excision, Skin Mass sebaceous cyst Griffin's ablation [facility] [place] Social History Smoking/Tobacco Use Status: Never Smoking risk assessment performed?: Yes Alcohol Intake: former Drug use: Never Substance use type: does not use Housing: house Current gender identity: male Do you feel safe at home: Yes Do you feel safe in your relationship?: Yes Sign Out Sign Out Data: Sign Out Comment: HTN head bleed on cardene loaded with sarthak orantes accepted by neurosurgery at [facility] they are deciding ED-ED v. ICU and will call back with location Last updated by Remi Castillo MD at 03/23/24 17:08
== END 2024-03-23 18:24 | disposition short-term general hospital (02) ==
PROVIDERS: Emergency Medicine; Emergency Provider Emergency Medicine; PCP Family Medicine
DX: I61.8 Other nontraumatic intracerebral hemorrhage (principal); R47.81 Slurred speech; R41.89 Other symptoms and signs involving cognitive functions and awareness; I10 Essential (primary) hypertension; I69.393 Ataxia following cerebral infarction; I69.398 Other sequelae of cerebral infarction; R20.8 Other disturbances of skin sensation; I48.91 Unspecified atrial fibrillation; E11.9 Type 2 diabetes mellitus without complications; Z79.01 Long term (current) use of anticoagulants
CPT/HCPCS: 36415; 80053; 93005; 96365; 96367; 96375; 99285; 70450; 85025; 85610; 85730; 93010; J1953; J2404; J7168

== ENCOUNTER → 2024-03-29 13:24 | Outpatient (BNVA) | payer MEDICARE, SELFPAY | PROVIDERS: PCP Family Medicine; Referring Provider Family Medicine; Visit Provider Podiatrist | DX: L97.521 Non-pressure chronic ulcer of other part of left foot limited to breakdown of skin (principal); L60.3 Nail dystrophy; L84 Corns and callosities; E11.610 Type 2 diabetes mellitus with diabetic neuropathic arthropathy; M79.2 Neuralgia and neuritis, unspecified; M79.671 Pain in right foot; B35.1 Tinea unguium | CPT/HCPCS: 11055 ==

== ENCOUNTER → 2024-03-30 15:26 | Outpatient (BNVA) | payer MEDICARE, SELFPAY | PROVIDERS: PCP Family Medicine; Referring Provider Family Medicine; Visit Provider Nurse Practitioner Gerontology | DX: R35.0 Frequency of micturition (principal); I63.9 Cerebral infarction, unspecified | CPT/HCPCS: 51798; 99214 ==

== ENCOUNTER → 2024-04-19 11:17 | Outpatient (BNVA) | payer MEDICARE, SELFPAY | PROVIDERS: PCP Family Medicine; Referring Provider Family Medicine; Visit Provider Podiatrist | DX: E11.610 Type 2 diabetes mellitus with diabetic neuropathic arthropathy (principal); L60.3 Nail dystrophy; L84 Corns and callosities; M79.2 Neuralgia and neuritis, unspecified; M79.671 Pain in right foot; B35.1 Tinea unguium; R60.0 Localized edema; R20.8 Other disturbances of skin sensation | CPT/HCPCS: 11055; 11719; 11720 ==

== ENCOUNTER → 2024-05-02 14:25 | Outpatient (BNVA) | payer MEDICARE, SELFPAY | PROVIDERS: PCP Family Medicine; Visit Provider Nurse Practitioner Gerontology | DX: I63.9 Cerebral infarction, unspecified (principal); R35.0 Frequency of micturition; N48.1 Balanitis | CPT/HCPCS: 51798; 99213 ==

== ENCOUNTER → 2024-05-04 08:44 | Outpatient (BNVA) | payer MEDICARE, SELFPAY | PROVIDERS: PCP Family Medicine; Referring Provider Nurse Practitioner Gerontology; Visit Provider Psychiatry & Neurology Neurology | DX: R41.3 Other amnesia (principal); I63.9 Cerebral infarction, unspecified; I61.9 Nontraumatic intracerebral hemorrhage, unspecified; I48.91 Unspecified atrial fibrillation | CPT/HCPCS: 99215 ==

== ENCOUNTER 2024-05-22 01:47 | Outpatient (CLI) | payer MEDICARE, SELFPAY ==
--- NOTE | 2024-05-22 06:30 | DI.MRI_ITS ---
Exam(s) MR BRAIN WO/W EXAM: MR BRAIN WO/W CLINICAL HISTORY: lcva,i63.9,? ca under recent hemorrhage TECHNIQUE: Multiplanar multisequence MRI of the brain was performed. Both noninfused and contrast i nfused sequences were performed. IV Contrast injected was 16 cc Dotarem. COMPARISON: CT CT HEAD WO from 03/23/2024 FINDINGS: CEREBRAL PARENCHYMA: Multiple foci susceptibility artifact SWI from prior hemorrhage, largest of thes e being in the right frontoparietal region consistent with area hemorrhage and surrounding edema on C T scan of 03/23/2024. Smaller areas hemorrhage are noted in the posterior right side of the corpus c allosum and in the periventricular white matter around the atrium of the right lateral ventricle as w ell and is in the anterior right temporal lobe. There is also a tiny focus of hypointensity in the l eft cerebellar hemisphere on SWI from prior microhemorrhage. There are no ring enhancing lesions in the brain. No abnormal meningeal enhancement there is some bi lateral periventricular FLAIR bright signal abnormality consistent with chronic small vessel disease although this does appear to be more prominent on the right side. There are no areas of restricted diffusion in the brain. PITUITARY GLAND: No mass nor parasellar abnormality. No obvious abnormality in the cavernous sinuses. FLOW VOIDS: The expected flow void are noted. No evidence of obvious aneurysm nor obvious vascular ma lformation. PARANASAL SINUSES: Minimal mucosal thickening noted in left maxillary sinus. Other sinuses are clear . Mastoid air cells clear. ORBITS: No obvious abnormal findings. IMPRESSION: 1. Several foci of signal abnormality on susceptibility weighted imaging consistent with prior hemorr hages, largest corresponding to what was described in the right frontal parietal region on the CT sca n of 03/23/2024. there is a small focus of T2 hypointensity (best evident on sagittal T2 sequence) in what appears to be the posterior aspect of the right-side of the corpus callosum. Recommend noninfused CT scan to determine if there is corresponding hyperdensity on CT scan at this r egion. There is a possibly that this represents a small cavernoma 2. There are no ring enhancing lesions in the brain. 3. There is asymmetric FLAIR bright signal abnormality in the left periventricular white matter as d escribed above. DATA REPOSITORY:
[2024-05-22] MEDS: Normal Saline Flush 10 ML SYR IVP (09:56)
[2024-05-22] MEDS: Gadoterate meglumine 20 ML SYRINGE 16 ML IVP (09:57)
== END 2024-05-22 02:07 ==
LOC: DI 01:47
PROVIDERS: PCP Family Medicine; Visit Provider Psychiatry & Neurology Neurology
DX: I63.9 Cerebral infarction, unspecified (principal)
CPT/HCPCS: 70553

== ENCOUNTER → 2024-08-07 10:25 | Outpatient (BNVA) | payer MEDICARE, SELFPAY | PROVIDERS: PCP Family Medicine; Referring Provider Family Medicine; Visit Provider Nurse Practitioner Gerontology | DX: I63.9 Cerebral infarction, unspecified (principal); R35.0 Frequency of micturition; N48.1 Balanitis; L72.9 Follicular cyst of the skin and subcutaneous tissue, unspecified | CPT/HCPCS: 51798; 99214 ==

== ENCOUNTER → 2024-08-15 10:48 | Outpatient (BNVA) | payer MEDICARE, SELFPAY | PROVIDERS: PCP Family Medicine; Referring Provider Family Medicine; Visit Provider Surgery | DX: L72.0 Epidermal cyst (principal) | CPT/HCPCS: 99213 ==

== ENCOUNTER → 2024-08-23 09:55 | Outpatient (BNVA) | payer MEDICARE, SELFPAY | PROVIDERS: PCP Family Medicine; Referring Provider Family Medicine; Visit Provider Podiatrist | DX: L60.3 Nail dystrophy (principal); L84 Corns and callosities; E11.610 Type 2 diabetes mellitus with diabetic neuropathic arthropathy; M79.2 Neuralgia and neuritis, unspecified; B35.1 Tinea unguium; L85.8 Other specified epidermal thickening; M79.672 Pain in left foot; R09.89 Other specified symptoms and signs involving the circulatory and respiratory systems; L65.8 Other specified nonscarring hair loss; R20.8 Other disturbances of skin sensation; R23.8 Other skin changes; L60.8 Other nail disorders; R60.0 Localized edema; L60.2 Onychogryphosis | CPT/HCPCS: 11055; 11719; 11720 ==

== ENCOUNTER 2024-08-29 13:48 | Outpatient (CLI) | payer MEDICARE, SELFPAY ==
[2024-08-29 11:49] LABS: Anion Gap 3.5 mmol/L (3-11); BUN 18 mg/dL (7-18); CO2 31.5 mmol/L (21.0-32.0); Calcium 9.7 mg/dL (8.5-10.1); Chloride 104 mmol/L (98-107); Estimated GFR 73.76 (mL/min/1.73m2); Glucose 124 mg/dL (74-106); Potassium 4.1 mmol/L (3.5-5.1); Sodium 139 mmol/L (136-145)
== END 2024-08-29 13:49 | disposition home or self-care (01) ==
LOC: LBO 13:50
PROVIDERS: PCP Family Medicine; Visit Provider Internal Medicine Cardiovascular Disease
DX: I48.91 Unspecified atrial fibrillation (principal)
CPT/HCPCS: 36415; 80048

== ENCOUNTER → 2024-11-29 10:22 | Outpatient (BNVA) | payer MEDICARE, SELFPAY | PROVIDERS: PCP Family Medicine; Referring Provider Family Medicine; Visit Provider Podiatrist | DX: L60.3 Nail dystrophy (principal); L84 Corns and callosities; E11.610 Type 2 diabetes mellitus with diabetic neuropathic arthropathy; M79.2 Neuralgia and neuritis, unspecified; B35.1 Tinea unguium; M79.672 Pain in left foot; R09.89 Other specified symptoms and signs involving the circulatory and respiratory systems; L65.9 Nonscarring hair loss, unspecified; R20.8 Other disturbances of skin sensation; R23.4 Changes in skin texture; L60.8 Other nail disorders; R23.8 Other skin changes; R60.0 Localized edema | CPT/HCPCS: 11055; 11719; 11720 ==

== ENCOUNTER → 2025-02-12 10:40 | Outpatient (BNVA) | payer MEDICARE, SELFPAY | PROVIDERS: PCP Family Medicine; Referring Provider Family Medicine; Visit Provider Nurse Practitioner Gerontology | DX: Z86.73 Personal history of transient ischemic attack (TIA), and cerebral infarction without residual deficits (principal); R35.0 Frequency of micturition; R35.1 Nocturia | CPT/HCPCS: 99214; 51798 ==

== ENCOUNTER 2025-03-03 16:25 | Emergency (ER) | payer MEDICARE, SELFPAY ==
[2025-03-03] VITALS (31 sets, daily range): BP systolic 126–189; BP diastolic 59–94; PULSE 52–81; RESP 13–25; TEMP 36.5; O2SAT 85–100
--- NOTE | 2025-03-03 17:00 | DI.CT_ITS ---
Exam(s) CT CHEST/ABD/PEL W EXAM: CT CHEST/ABD/PEL W CLINICAL HISTORY: trauma, T spine pain, SOB. TECHNIQUE: Imaging Protocol: Axial computed tomography images with coronal and sagittal reformatted images were created and reviewed CONTRAST MATERIAL: Intravenous: Omnipaque 350 Contrast volume:100 ml Oral: None COMPARISON: CT CT THORACIC LUMBAR SPINE REC from 03/03/2025 FINDINGS: CHEST: LUNGS: There is a prominent right-side pneumothorax, approximately 50 percent and there is some mild infiltrate-probable lung contusion in the right lower lobe. There is no pleural fluid. There are no rib fractures identified and no fractures in the vertebral bodies. No ipsilateral scapular fracture nor clavicle fracture.. The opposite-left lung is clear and there is no pneumothorax on the left side. No pleural effusion. There are no ominous pulmonary nodules in either lung field. MEDIASTINUM: There is no evidence of sternal fracture nor mediastinal hematoma. No incidental hilar nor mediastinal adenopathy. Visualized thyroid gland unremarkable. CARDIAC: Heart size upper normal. No pericardial effusion. The diameter of the ascending thoracic aorta is within normal limits. No evidence of dissection. Descending thoracic aorta is intact. OSSEOUS: No fractures. No significant osseous lesions.. ABDOMEN: There is no ascites and there is no evidence of bowel wall nor mesenteric hematoma. LIVER: Intact. No laceration. No significant lesions. There are no dilated intrahepatic ducts. GALLBLADDER/BILIARY: No obvious gallbladder pathology. CBD is not dilated. PANCREAS: No evidence of pancreatic mass nor dilatation of the pancreatic duct. SPLEEN: Spleen is intact. No lacerations. Normal size. No lesions. Splenic and portal veins are patent. ADRENALS: No adrenal masses nor adrenal hemorrhage KIDNEYS: No evidence of kidney lacerations nor subcapsular hematomas. Benign cysts are noted in the right kidney measuring up to 3.6 cm. These do not require further imaging workup.. There are no solid renal masses nor calculi nor hydronephrosis. No hydroureter. ABDOMINAL AORTA: The abdominal aorta is calcified but not enlarged. No dissection. Iliac arteries are calcified but not enlarged. No dissection. LYMPH NODES: There is no retroperitoneal nor paraaortic adenopathy. ABDOMINAL WALL: No evidence of significant anterior abdominal wall nor inguinal hernia. GI: No evidence of bowel wall nor mesenteric hematoma. No bowel obstruction, free air, nor abscess. PELVIS: LYMPH NODES: There is no intrapelvic nor inguinal adenopathy. GI: No evidence of appendicitis.No evidence of sigmoid diverticulitis. URINARY BLADDER: There is a TURP defect in the prostate. No masses nor radiopaque calculi seen in the urinary bladder. REPRODUCTIVE: Mild prostatic enlargement. TURP defect. Seminal vesicles unremarkable. OSSEOUS: No fractures. Multilevel degenerative changes throughout the spinal column but no acute appearing vertebral fractures. No evidence of pelvic nor hip fractures nor pubic rami fractures. IMPRESSION: 1. There is a large right-sided pneumothorax. Approximately 50 percent collapse. There are no rib fractures in the vertebral fractures evident. There is mild lung contusions in the right lower lobe. No pneumothorax. No significant shift of midline structures. No significant focal findings in the opposite-left lung. 2. No significant acute trauma sequelae in the abdomen and pelvis. 3. There are no acute fractures identified. Correlation with clinical findings recommended. Report called by myself to ER provider 03/03/2025 at 6:25 p.m. RADIATION DOSE DELIVERED: 528.5mGy.cm Total DLP DATA REPOSITORY: All CT scans at this facility are submitted to the National Radiology Data Registry (NRDR) Dose Index Registry (DIR) with the [employer] (ACR). RADIATION OPTIMIZATION: All CT scans at this facility use at least one of these dose optimization techniques: automated exposure control; mA and/or kV adjustment per patient size (includes targeted exams where dose is matched to clinical indication); or iterative reconstruction.
--- NOTE | 2025-03-03 17:00 | DI.CT_ITS ---
Exam(s) CT HEAD CERVICAL SPINE WO EXAM: CT HEAD CERVICAL SPINE WO CLINICAL HISTORY: kathya pleitez. TECHNIQUE: Imaging Protocol: Axial computed tomography images with coronal and sagittal reformatted images were created and reviewed COMPARISON: CT CT HEAD WO from 03/23/2024 FINDINGS: BRAIN: There are no skull fractures nor fluid in the visualized paranasal sinuses. There is no evidence of acute intracranial hemorrhage, new mass effect, or shift of midline structures. There are no extra-axial fluid collections. Ventricular size is stable. There is no blood within the ventricular system nor within the basal cisterns. The previously present acute intra-axial blood in the right convexity seen on CT scan of March 2024 has resolved and there is presently no evidence of intracranial hemorrhage, intra or extra-axial. There is evidence of prior infarct in the right parietal lobe again noted, this superimposed upon abundant bilateral periventricular hypodensity consistent with chronic small vessel disease. CERVICAL SPINE: There is no evidence of acute fracture nor listhesis. No significant prevertebral soft tissue swelling. There is chronic advanced disc space narrowing at C4-5, C5-6, and C6-7 levels. There is multilevel facet arthropathy. There is no significant facet joint malalignment. No significant osseous lesions evident. IMPRESSION: No acute intracranial findings on this noninfused CT scan of the brain.No evidence of acute hemorrhage, as was present on CT scan 1 year ago (March 2024) No evidence of cervical spine fracture, malalignment, nor acute compromise of the cervical spinal canal. Report called to ER by myself 03/03/2025 at 6:15 p.m. RADIATION DOSE DELIVERED: 1,361.6mGy.cm Total DLP DATA REPOSITORY: All CT scans at this facility are submitted to the National Radiology Data Registry (NRDR) Dose Index Registry (DIR) with the [employer] (ACR). RADIATION OPTIMIZATION: All CT scans at this facility use at least one of these dose optimization techniques: automated exposure control; mA and/or kV adjustment per patient size (includes targeted exams where dose is matched to clinical indication); or iterative reconstruction.
--- NOTE | 2025-03-03 17:00 | DI.CT_ITS ---
Exam(s) CT THORACIC LUMBAR SPINE REC EXAM: CT THORACIC LUMBAR SPINE REC CLINICAL HISTORY: trauma, midline T spine tenderness around T10-11 TECHNIQUE: COMPARISON: CT CT ABDOMEN PELVIS WO/W from 06/20/2019 FINDINGS: THORACIC SPINAL COLUMN: No evidence of fractures of the thoracic vertebral bodies. No listhesis. Multilevel disc disease. No facet malalignment. No acute compromise of the canal. LUMBOSACRAL SPINAL COLUMN: No evidence of acute fracture. There is unchanged degenerative anterolisthesis of L4 upon L5 related to facet arthropathy. There is no facet joint malalignment. Multilevel disc space narrowing again noted. No obvious sacral fracture nor diastasis of the SI joints. No osseous lesions IMPRESSION: No acute fractures evident in thoracic and lumbosacral spinal columns.
--- NOTE | 2025-03-03 17:16 | W.ED.GENAD ---
Discharge Plan Disposition Patient Disposition: Transfer-Acute Inpatient Care Specific Acute Inpt Facility: [facility] Discharge Details Clinical Impression: Pneumothorax on right Primary Care Provider: Pieter Truong ED Provider: Janelle Bravo Home Meds and New Rx's Prescriptions: No Action (DME) diabetic shoes See Rx Instructions .Route .MEDSUPPLY Qty: 1 0RF Rx Instructions: As directed - see office visit melatonin 5 mg capsule PO doxazosin 1 mg tablet 1 mg PO BID Qty: 180 3RF docusate sodium 100 mg capsule 200 mg PO BID Qty: 360 3RF triamcinolone acetonide 0.1 % cream 1 applic topical BID Qty: 80 0RF losartan 50 mg tablet 50 mg PO DAILY Qty: 90 3RF ascorbate calcium (vitamin C) 500 mg tablet 500 mg PO DAILY cholecalciferol (vitamin D3) 50 mcg (2,000 unit) tablet 1,000 unit PO DAILY omeprazole 40 mg capsule,delayed release(DR/EC) 40 mg PO BID Qty: 180 3RF Eliquis 5 mg tablet 5 mg PO BID Qty: 180 3RF HPI General Date/Time Provider Initiated Documentation: 03/03/25 16:31. HPI Narrative: He is an 85-year-old male on Eliquis who presents to the emergency department after falling. He reports that he has left-sided deficits after stroke, this causes him to lose his balance easily. He reports falling backwards onto the cement walkway, hitting the back of his head on the step. Denies loss of consciousness. He was able to be helped up, but agreed to come to the emergency department after developing posterior chest pain and shortness of breath. He denies headache, dizziness, vision changes, neck pain, chest pain, abdominal pain, nausea/vomiting, extremity numbness/weakness, saddle anesthesia/paresthesias. Past medical history significant for T2DM, basal cell carcinoma, CVA with left-sided deficits, HTN, and A-fib, currently anticoagulated on Eliquis. Related Data Home Medications ?Medication ?Instructions ?Recorded ?Confirmed cholecalciferol (vitamin D3) 50 1,000 unit PO DAILY 06/09/2225 mcg (2,000 unit) tablet ascorbate calcium (vitamin C) 500 500 mg PO DAILY 09/07/2201/11/25 mg tablet diabetic shoes #1 ea 01/08/23 01/11/25 melatonin 5 mg capsule mg PO 08/07/24 01/11/25 omeprazole 40 mg capsule,delayed 40 mg PO BID #180 tab-caps 09/18/24 01/11/25 release apixaban 5 mg tablet (Eliquis) 5 mg PO BID #180 tabs 11/27/24 01/11/25 docusate sodium 100 mg capsule 200 mg (2 x 100 mg) PO BID #360 01/11/25 01/11/25 caps losartan 50 mg tablet 50 mg PO DAILY #90 tabs 01/11/25 01/11/25 triamcinolone acetonide 0.1 % 1 applic topical BID leg 01/11/25 01/11/25 topical cream dermatitis #80 grams doxazosin 1 mg tablet 1 mg PO BID #180 tabs 02/12/25 02/12/25 Previous Rx's ?Medication ?Instructions ?Recorded diabetic shoes #1 ea 01/08/23 omeprazole 40 mg capsule,delayed 40 mg PO BID #180 tab-caps 09/18/24 release apixaban 5 mg tablet (Eliquis) 5 mg PO BID #180 tabs 11/27/24 docusate sodium 100 mg capsule 200 mg (2 x 100 mg) PO BID #360 01/11/25 caps losartan 50 mg tablet 50 mg PO DAILY #90 tabs 01/11/25 triamcinolone acetonide 0.1 % 1 applic topical BID leg 01/11/25 topical cream dermatitis #80 grams doxazosin 1 mg tablet 1 mg PO BID #180 tabs 02/12/25 Allergies Allergy/AdvReac Type Severity Reaction Status Date / Time Penicillins Allergy Severe hives all Verified 02/12/25 10:49 over body General Stated Complaint: RespSymp PHYLICIA: 3 Exam Narrative Exam Narrative: General Appearance: Normal. Patient does appear anxious and tachypneic Vital signs: O2 sat 88% on room air, 94% on simple facemask Respiratory: Tachypnea with shallow breaths noted. Clear breath sounds bilaterally, no wheezes, rales, or rhonchi. Equal expansion bilaterally, no flail chest or obvious deformity Cardiovascular: Irregular rate and rhythm Back, Musculoskeletal: T-spine tenderness along T10/T11, no step-offs or deformities noted. No paraspinal tenderness Extremities: Full range of motion in both legs, Skin: Warm and dry, no rash. Neurological: 5/5 muscle strength to upper and lower extremities with sensation grossly intact Psychiatric: Normal. Course Vital Signs Vital signs: Vital Signs Temperature 36.5 C 03/03/25 16:28 Pulse 55 L 03/03/25 16:28 Respiratory Rate 22 03/03/25 16:28 Blood Pressure 126/59 L 03/03/25 16:28 Pulse Oximetry 85 L 03/03/25 16:28 Temperature 36.5 C 03/03/25 16:28 Pulse 55 L 03/03/25 16:28 Respiratory Rate 22 03/03/25 16:28 Blood Pressure 126/59 L 03/03/25 16:28 Pulse Oximetry 94 03/03/25 16:39 Oxygen Delivery Method OxyMask 03/03/25 16:39 Oxygen Flow Rate 4 03/03/25 16:39 Medical Decision Making Initial Assessment: 85-year-old male on Eliquis fell and hit his head, now with shortness of breath and back pain. No loss of consciousness. Reports significant back pain. Differential Diagnosis includes but is not limited to: intracranial hemorrhage, pneumothorax/hemothorax, pulmonary contusion, vertebral fracture, rib fracture, other intrathoracic or intraabdominal injury I independently interpreted the following tests: CBC shows mild anemia (unchanged from baseline), PT/INR slightly elevated (unchanged from baseline), CMP, aPTT, all reassuring. Large right-sided pneumothorax noted on CT. This was confirmed by radiologist ED Course: - O2 via simple face mask - Baseline labs - Trauma scan, significant for large right-sided pneumothorax - Consulted with Dr. Gilbert, trauma surgeon at [facility]. Recommends pigtail chest tube, reversal of anticoagulant not necessary but may be performed if desired. Patient to be transferred ED to ED trauma alert - Pigtail catheter placed by Dr. Moseley, attending physician. Chest x-ray performed to confirm resolution of pneumothorax Clinical Impression: - Right-sided traumatic pneumothorax Patient consented to the use of [facility] Imaging Data Radiologic Study: Radiologist's impression: Exam(s) CT CHEST/ABD/PEL W EXAM: CT CHEST/ABD/PEL W CLINICAL HISTORY: trauma, T spine pain, SOB. TECHNIQUE: Imaging Protocol: Axial computed tomography images with coronal and sagittal reformatted images were created and reviewed CONTRAST MATERIAL: Intravenous: Omnipaque 350 Contrast volume:100 ml Oral: None COMPARISON: CT CT THORACIC LUMBAR SPINE REC from 03/03/2025 FINDINGS: CHEST: LUNGS: There is a prominent right-side pneumothorax, approximately 50 percent and there is some mild infiltrate-probable lung contusion in the right lower lobe. There is no pleural fluid. There are no rib fractures identified and no fractures in the vertebral bodies. No ipsilateral scapular fracture nor clavicle fracture.. The opposite-left lung is clear and there is no pneumothorax on the left side. No pleural effusion. There are no ominous pulmonary nodules in either lung field. MEDIASTINUM: There is no evidence of sternal fracture nor mediastinal hematoma. No incidental hilar nor mediastinal adenopathy. Visualized thyroid gland unremarkable. CARDIAC: Heart size upper normal. No pericardial effusion. The diameter of the ascending thoracic aorta is within normal limits. No evidence of dissection. Descending thoracic aorta is intact. OSSEOUS: No fractures. No significant osseous lesions.. ABDOMEN: There is no ascites and there is no evidence of bowel wall nor mesenteric hematoma. LIVER: Intact. No laceration. No significant lesions. There are no dilated intrahepatic ducts. GALLBLADDER/BILIARY: No obvious gallbladder pathology. CBD is not dilated. PANCREAS: No evidence of pancreatic mass nor dilatation of the pancreatic duct. SPLEEN: Spleen is intact. No lacerations. Normal size. No lesions. Splenic and portal veins are patent. ADRENALS: No adrenal masses nor adrenal hemorrhage KIDNEYS: No evidence of kidney lacerations nor subcapsular hematomas. Benign cysts are noted in the right kidney measuring up to 3.6 cm. These do not require further imaging workup.. There are no solid renal masses nor calculi nor hydronephrosis. No hydroureter. ABDOMINAL AORTA: The abdominal aorta is calcified but not enlarged. No dissection. Iliac arteries are calcified but not enlarged. No dissection. LYMPH NODES: There is no retroperitoneal nor paraaortic adenopathy. ABDOMINAL WALL: No evidence of significant anterior abdominal wall nor inguinal hernia. GI: No evidence of bowel wall nor mesenteric hematoma. No bowel obstruction, free air, nor abscess. PELVIS: LYMPH NODES: There is no intrapelvic nor inguinal adenopathy. GI: No evidence of appendicitis.No evidence of sigmoid diverticulitis. URINARY BLADDER: There is a TURP defect in the prostate. No masses nor radiopaque calculi seen in the urinary bladder. REPRODUCTIVE: Mild prostatic enlargement. TURP defect. Seminal vesicles unremarkable. OSSEOUS: No fractures. Multilevel degenerative changes throughout the spinal column but no acute appearing vertebral fractures. No evidence of pelvic nor hip fractures nor pubic rami fractures. IMPRESSION: 1. There is a large right-sided pneumothorax. Approximately 50 percent collapse. There are no rib fractures in the vertebral fractures evident. There is mild lung contusions in the right lower lobe. No pneumothorax. No significant shift of midline structures. No significant focal findings in the opposite-left lung. 2. No significant acute trauma sequelae in the abdomen and pelvis. 3. There are no acute fractures identified. Correlation with clinical findings recommended. Radiologic Study #2: Radiologist's impression: Exam(s) CT THORACIC LUMBAR SPINE REC EXAM: CT THORACIC LUMBAR SPINE REC CLINICAL HISTORY: trauma, midline T spine tenderness around T10-11 TECHNIQUE: COMPARISON: CT CT ABDOMEN PELVIS WO/W from 06/20/2019 FINDINGS: THORACIC SPINAL COLUMN: No evidence of fractures of the thoracic vertebral bodies. No listhesis. Multilevel disc disease. No facet malalignment. No acute compromise of the canal. LUMBOSACRAL SPINAL COLUMN: No evidence of acute fracture. There is unchanged degenerative anterolisthesis of L4 upon L5 related to facet arthropathy. There is no facet joint malalignment. Multilevel disc space narrowing again noted. No obvious sacral fracture nor diastasis of the SI joints. No osseous lesions IMPRESSION: No acute fractures evident in thoracic and lumbosacral spinal columns. Radiologic Study #3: Radiologist's impression: Exam(s) CT HEAD CERVICAL SPINE WO EXAM: CT HEAD CERVICAL SPINE WO CLINICAL HISTORY: fell, eliquis. TECHNIQUE: Imaging Protocol: Axial computed tomography images with coronal and sagittal reformatted images were created and reviewed COMPARISON: CT CT HEAD WO from 03/23/2024 FINDINGS: BRAIN: There are no skull fractures nor fluid in the visualized paranasal sinuses. There is no evidence of acute intracranial hemorrhage, new mass effect, or shift of midline structures. There are no extra-axial fluid collections. Ventricular size is stable. There is no blood within the ventricular system nor within the basal cisterns. The previously present acute intra-axial blood in the right convexity seen on CT scan of March 2024 has resolved and there is presently no evidence of intracranial hemorrhage, intra or extra-axial. There is evidence of prior infarct in the right parietal lobe again noted, this superimposed upon abundant bilateral periventricular hypodensity consistent with chronic small vessel disease. CERVICAL SPINE: There is no evidence of acute fracture nor listhesis. No significant prevertebral soft tissue swelling. There is chronic advanced disc space narrowing at C4-5, C5-6, and C6-7 levels. There is multilevel facet arthropathy. There is no significant facet joint malalignment. No significant osseous lesions evident. IMPRESSION: No acute intracranial findings on this noninfused CT scan of the brain.No evidence of acute hemorrhage, as was present on CT scan 1 year ago (March 2024) No evidence of cervical spine fracture, malalignment, nor acute compromise of the cervical spinal canal. 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 fib-flutter status post ablation remotely x2, asymptomatic as of 10/2021, plan on starting Eliquis Villous adenoma (Acute) 07/2019-large villous adenoma-identified on CT at [facility] is a large mass. Confirm a colonoscopy Removed by general surgery with partial sigmoid resection at [facility]-benign villous adenoma Hydrocele (Acute) Gross hematuria (Acute) CVA (cerebral vascular accident) (Chronic) 12/2018-Right thalamic. Sensory only Chronic anticoagulation (Acute) Ventricular arrhythmia (Acute) Tubular adenoma (Acute 09/24/16) 13cm tubulovillous adenoma removed 06/17 Ananda 02/24/17 DR. 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 Adan with Polypectomies Stroke (~12/2018) 2019-Per pt states it was a small thing, followed up at [facility] Atrial fibrillation Surgical History S/P laparoscopic-assisted sigmoidectomy S/P TURP 2019- [facility] History of colonoscopy (~10/2023) path sent History of radiofrequency ablation procedure for cardiac arrhythmia Excision, Skin Mass sebaceous cyst Griffin's ablation [facility]-12/17/16 Social History Smoking/Tobacco Use Status: Never Smoking risk assessment performed?: Yes Alcohol Intake: former Drug use: Never Substance use type: does not use Housing: house Current gender identity: male Do you feel safe at home: Yes Do you feel safe in your relationship?: Yes
[2025-03-03] MEDS: Lidocaine 5% Patch 1 PATCH TP (17:18)
[2025-03-03] MEDS: Normal Saline - Diluent 50 ML VIAL IJ (17:37)
[2025-03-03] MEDS: Omnipaque 350 MG/ML 100 ML BTL IJ (17:37)
[2025-03-03 17:39] LABS: Abs Immature Grans 0.02 10^3/uL (0.0-0.06); HCT 39.7 % (40.0-50.0); HGB 13.1 g/dL (13.5-17.5); Immature Grans % 0.4 %; MCH 31.6 pg (27.0-33.0); MCHC 33.0 % (32.0-36.0); MCV 96 fL (80-95); MPV 10.0 fL (8.0-11.0); Platelet Count 199 10^3/uL (130-400); RBC 4.15 10^6/uL (4.36-5.78); RDW 13.2 % (11.8-14.1); RDW-SD 46.6 fL; WBC 5.25 10^3/uL (4.4-10.8)
[2025-03-03 17:52] LABS: INR 1.2 (0.9-1.1); PTT Activated 24.0 sec (20.6-30.2); Prothrombin Time 12.1 sec (9.1-11.1)
[2025-03-03 17:55] LABS: ALT 26 U/L (16-63); AST 24 U/L (15-37); Albumin 4.2 g/dL (3.4-5.0); Alkaline Phosphatase 108 U/L (46-116); Anion Gap 11.5 mmol/L (3-11); BUN 18 mg/dL (7-18); Bilirubin, Total 0.6 mg/dL (0.2-1.0); CO2 27.5 mmol/L (21.0-32.0); Calcium 9.4 mg/dL (8.5-10.1); Chloride 103 mmol/L (98-107); Estimated GFR 73.30 (mL/min/1.73m2); Glucose 123 mg/dL (74-106); Potassium 3.6 mmol/L (3.5-5.1); Sodium 142 mmol/L (136-145); Total Protein 7.8 g/dL (6.4-8.2)
--- NOTE | 2025-03-03 18:45 | DI.RAD_ITS ---
Exam(s) XR PORTABLE CHEST AP EXAM: XR PORTABLE CHEST AP CLINICAL HISTORY: post-chest tube. TECHNIQUE: 2D digital imaging was performed. COMPARISON: Prior CT scan reviewed. FINDINGS: Single AP portable view. There has been interval placement of a right-sided pigtail chest tube and there has been significant re-expansion of the right lung. Small remaining pneumothorax probably less than 10 percent. No shift of midline structures. Heart size unchanged in the mediastinum is not widened nor significantly shifted. No confluent infiltrates. Some platelike atelectasis in the right lung base is noted. There are no pleural effusions. IMPRESSION: Interval placement of right chest tube. Right lung the is mostly re-expanded. DATA REPOSITORY: RADIATION DOSE DELIVERED:
--- NOTE | 2025-03-03 20:49 | ED.PROG_ITS ---
Date of service: 03/03/25 Time of Service: 20:49 Medical Decision Making 85-year-old male on anticoagulation presents after fall from standing onto his back at his side, found to have right-sided pneumothorax, case discussed with trauma team at [facility]. Chest tube has been placed here given large pneumothorax greater than 50%, patient was consented regarding risks and benefits including bleeding infection disability organ dysfunction and . Right sided pigtail catheter has been placed successfully. Patient does have some residual pneumothorax on repeat x-ray. Maintaining hemodynamics heart rate 76 bpm oxygen saturation 98%. Patient has been accepted for transfer by trauma team at [facility]. Procedure Chest Tube Chest Tube 1: Date of Procedure: 03/03/25 Time of Procedure: 20:51 Provider that performed the procedure: Pato Olsen Indication: Pneumothrox Standard Time Out Performed: Yes Patient Consented: Written Local anesthetic: Lidocaine 1% Amount of anesthesia used (mL): 5 Chest Tube Location: forth interspace Type of Chest Tube: Pigtail Catheter 14F Chest Tube Procedure: betadine prep (Chlorhexidine prep), sterile drapes applied and sterile dressing applied Post procedure chest tube: sutured to skin and sterile dressing applied Post Procedure CXR?: Yes Patient tolerated procedure chest tube: Yes Critical Care Time Critical Care Time Critical Care Time: Yes Total Critical Care Time: 30 Attestation: Critical care time spent bedside assessing patient interpreting labs interpret ing imaging, placing right sided pigtail catheter for traumatic pneumothorax and patient requiring transfer to trauma center Discharge Plan Disposition Patient Disposition: Transfer-Acute Inpatient Care Specific Acute Inpt Facility: [facility] Discharge Details Clinical Impression: Pneumothorax on right Primary Care Provider: Pieter Truong ED Provider: Janelle Bravo Home Meds and New Rx's Prescriptions: No Action (DME) diabetic shoes See Rx Instructions .Route .MEDSUPPLY Qty: 1 0RF Rx Instructions: As directed - see office visit melatonin 5 mg capsule PO doxazosin 1 mg tablet 1 mg PO BID Qty: 180 3RF docusate sodium 100 mg capsule 200 mg PO BID Qty: 360 3RF triamcinolone acetonide 0.1 % cream 1 applic topical BID Qty: 80 0RF losartan 50 mg tablet 50 mg PO DAILY Qty: 90 3RF ascorbate calcium (vitamin C) 500 mg tablet 500 mg PO DAILY cholecalciferol (vitamin D3) 50 mcg (2,000 unit) tablet 1,000 unit PO DAILY omeprazole 40 mg capsule,delayed release(DR/EC) 40 mg PO BID Qty: 180 3RF Eliquis 5 mg tablet 5 mg PO BID Qty: 180 3RF
--- NOTE | 2025-03-03 20:54 | DI.VRAD_ITS ---
PROCEDURE INFORMATION: Exam: XR Chest Exam date and time: 03/03/2025 8:45 PM Age: 85 years old Clinical indication: Other: Post-chest tube TECHNIQUE: Imaging protocol: Radiologic exam of the chest. Views: 1 view. COMPARISON: CT CHEST/ABD/PEL W 03/03/2025 5:47 PM FINDINGS: Tubes, catheters and devices: There has been interval placement of a right-sided pleural drainage catheter since the comparison CT chest exam from 5:48 p.m.. There is a small residual right-sided pneumothorax, not well demonstrated. No left-sided pneumothorax is seen. No pleural effusion is demonstrated. Lungs: No pulmonary consolidation is seen. Pleural spaces: See Tubes, catheters and devices finding. Heart/Mediastinum: The heart appears normal in size. Bones/joints: The visualized bony structures appear grossly intact, as seen. IMPRESSION: Interval placement of a right-sided pleural drainage catheter. Small residual right-sided pneumothorax, not well demonstrated. Dictated and Authenticated by: Td Ko MD. Orderin Pascale Luis MD
[2025-03-03 21:04] LABS: Glucose Negative (Negative)
[2025-03-03 21:10] LABS: C & S Indicated? No; RBC >50 HPF (0-2); WBC 0-2 HPF (0-5)
== END 2025-03-03 21:10 | disposition short-term general hospital (02) ==
PROVIDERS: Emergency Medicine; Emergency Provider Nurse Practitioner Family; PCP Family Medicine
DX: J93.9 Pneumothorax, unspecified (principal); R53.1 Weakness; R06.02 Shortness of breath; M54.6 Pain in thoracic spine; Z79.01 Long term (current) use of anticoagulants; Z86.79 Personal history of other diseases of the circulatory system; W19.XXXA Unspecified fall, initial encounter
CPT/HCPCS: 99285 ×2; 00123; 32556; 74177; 80053; 86850; 86900; 86901; 70450; 71045; 71260; 72125; 81003; 81015; 85025; 85610; 85730; J3490

== ENCOUNTER → 2025-03-13 11:27 | Outpatient (BNVA) | payer MEDICARE, SELFPAY | PROVIDERS: PCP Family Medicine; Referring Provider Family Medicine; Visit Provider Podiatrist | DX: L60.3 Nail dystrophy (principal); E11.610 Type 2 diabetes mellitus with diabetic neuropathic arthropathy; L84 Corns and callosities; M79.2 Neuralgia and neuritis, unspecified; B35.1 Tinea unguium; R09.89 Other specified symptoms and signs involving the circulatory and respiratory systems; L65.9 Nonscarring hair loss, unspecified; R20.8 Other disturbances of skin sensation; R23.8 Other skin changes; L60.8 Other nail disorders; R23.4 Changes in skin texture; R60.0 Localized edema; L60.2 Onychogryphosis; L85.8 Other specified epidermal thickening | CPT/HCPCS: 11055; 11719; 11720 ==

== ENCOUNTER → 2025-06-12 11:15 | Outpatient (BNVA) | payer MEDICARE, SELFPAY | PROVIDERS: PCP Family Medicine; Referring Provider Family Medicine; Visit Provider Podiatrist | DX: L60.3 Nail dystrophy (principal); B35.1 Tinea unguium; L84 Corns and callosities; E11.610 Type 2 diabetes mellitus with diabetic neuropathic arthropathy; M79.2 Neuralgia and neuritis, unspecified; R09.89 Other specified symptoms and signs involving the circulatory and respiratory systems; L65.9 Nonscarring hair loss, unspecified; R20.8 Other disturbances of skin sensation; R23.4 Changes in skin texture; L60.2 Onychogryphosis; L60.8 Other nail disorders; R23.8 Other skin changes; R60.0 Localized edema | CPT/HCPCS: 11055; 11719; 11720 ==

== ENCOUNTER → 2025-06-18 09:57 | Outpatient (BNVA) | payer MEDICARE, SELFPAY | PROVIDERS: PCP Family Medicine; Referring Provider Family Medicine; Visit Provider Nurse Practitioner Gerontology | DX: R35.0 Frequency of micturition (principal); I63.9 Cerebral infarction, unspecified; R31.0 Gross hematuria; N40.0 Benign prostatic hyperplasia without lower urinary tract symptoms; R39.9 Unspecified symptoms and signs involving the genitourinary system; Z79.01 Long term (current) use of anticoagulants | CPT/HCPCS: 99214; 81002; 51798 ==

== ENCOUNTER 2025-06-18 11:21 | Outpatient (REF) | payer MEDICARE, SELFPAY ==
--- NOTE | 2025-06-18 10:30 | PAPNONF_PTH ---
PATIENT: Terence Rosario LOC: [facility] U#:[id number] AGE/SX: 85/M ROOM: RE06/18/[address]: Polly Dykes DNP : 1940 BED: DIS: 06/18/2025 SPEC #: [id number] RECD: 06/18/25 12:49 STATUS: LORI REQ #: [id number] DAVID: 06/18/25 10:[address]: Polly Dykes DEPT: [facility] Cytology RECD BY: Micaela Agee ENTERED: 06/18/25 12:49 SP TYPE: HELDER CHENG DR: Pieter Truong MD Tissues: 1 - BODY FLUID CYTO(SPUTUM/URINE)[facility] Procedures: BODY FLUID CYTO(URINE/SPUTUM) Comments: [id number] (TV = 70 ml, 30 ml CYTOLYT ADDED) (REFRIGERATED)
== END 2025-06-18 11:22 | disposition home or self-care (01) ==
LOC: LBN 11:21
PROVIDERS: PCP Family Medicine; Visit Provider Nurse Practitioner Gerontology
DX: R31.0 Gross hematuria (principal)
CPT/HCPCS: 88104

== ENCOUNTER → 2025-07-04 13:28 | Outpatient (BNVA) | payer MEDICARE, SELFPAY | PROVIDERS: PCP Family Medicine; Referring Provider Family Medicine; Visit Provider Nurse Practitioner Gerontology | DX: R35.0 Frequency of micturition (principal); R31.0 Gross hematuria; I48.91 Unspecified atrial fibrillation; I63.9 Cerebral infarction, unspecified; Z79.01 Long term (current) use of anticoagulants | CPT/HCPCS: 99214 ==